=== PATIENT | male | born 1950 | race Caucasian/White ===

== ENCOUNTER 2020-11-13 14:24 | Inpatient (IN) | payer OTHER, MEDICARE, SELFPAY ==
[2020-11-13] VITALS (19 sets, daily range): BP systolic 117–154; BP diastolic 57–74; PULSE 83–110; RESP 22–40; TEMP 38.1; O2SAT 84–94; BMI 28.0
--- NOTE | 2020-11-13 14:30 | PC.NURSE ---
COVID + PT arrived via EMS, RA for 2 min and sats decreased to 84%. Placed on 6L, stats increased to 86-88%. RT called for heated high flow setup. Pt reports chest pain with cough. A/O, short of breath.
--- NOTE | 2020-11-13 14:37 | DI.RAD.S_ITS ---
PROCEDURE: XR CHEST 1V INDICATIONS: Covid + and shortness of breath TECHNIQUE: One view of the chest was acquired. COMPARISON: None. FINDINGS: Heart size and mediastinum unremarkable. Atherosclerotic vascular calcification noted in the aortic arch. There are patchy bilateral pulmonary infiltrates accentuated by low lung volumes. Pleural spaces are clear. Osseous structures normal. IMPRESSION: Patchy bilateral pulmonary infiltrates consistent with viral pneumonia. Low lung volumes accentuate pulmonary interstitium and heart size. Aortic atherosclerosis Approved by: Willy Liao M.D. on 11/13/2020 at 14:32
--- NOTE | 2020-11-13 14:43 | ED.GENADULT ---
HPI - General Adult General Chief complaint: Shortness of Breath/Dyspnea Stated complaint: SOB Time Seen by Provider: 11/13/20 14:34 Source: patient and EMS Mode of arrival: EMS History of Present Illness HPI narrative: 70-year-old male was brought in by EMS for shortness of breath. Patient states that approximately 10 days ago he started having symptoms to include headache and a cough. A couple days later he was tested as an outpatient and was positive for COVID-19. He is unvaccinated. No prior underlying lung issues. He states that over the past 10 days he has progressively worsened until today things seem to get much worse. He has been coughing. He does have a headache. Chest pain only associated with a cough. No abdominal pain. No nausea body. No rashes. No recent travel. No lower extremity swelling. No urinary symptoms. No change in bowel habits. Related Data Home Medications Medication Instructions Recorded Confirmed amlodipine 10 mg tablet 10 mg PO DAILY 11/13/20 11/13/20 gabapentin 300 mg capsule 300 mg PO BID 11/13/20 11/13/20 lisinopril 20 mg tablet 20 mg PO BID 11/13/20 11/13/20 metoprolol tartrate 25 mg tablet 25 mg PO BID 11/13/20 11/13/20 triamterene 37.5 1 tab PO DAILY 11/13/20 11/13/20 mg-hydrochlorothiazide 25 mg tablet Allergies Allergy/AdvReac Type Severity Reaction Status Date / Time Penicillins Allergy Unknown Verified 11/13/20 14:51 Sulfa (Sulfonamide Allergy Unknown Verified 11/13/20 14:51 Antibiotics) Review of Systems Constitutional Constitutional: Reports fever(s) and Reports headache(s) Eyes Eyes: Reports system reviewed and no additional complaints, except as documented ENT Ears, Nose, Mouth, and Throat: Reports headache(s) Cardiovascular Cardiovascular: Reports as per HPI Respiratory Respiratory: Reports as per HPI Gastrointestinal Gastrointestinal: Reports as per HPI Genitourinary Genitourinary: Reports system reviewed and no additional complaints, except as documented Musculoskeletal Musculoskeletal: Reports system reviewed and no additional complaints, except as documented Integumentary/Breasts Skin/Breast: Reports system reviewed and no additional complaints, except as documented Neurologic Neurologic: Reports headache(s) Endocrine Endocrine: Reports system reviewed and no additional complaints, except as documented Hematologic/Lymphatic On Anticoagulants: No Allergic/Immunologic Allergic/Immunologic: Reports system reviewed and no additional complaints, except as documented Patient History Medical History Hypertension Social History Smoking Status: Current every day smoker Exam Initial Vital Signs Initial Vital Signs: Vital Signs Pulse Rate 109 H 11/13/20 14:31 Blood Pressure 154/68 H 11/13/20 14:31 Pulse Oximetry 84 L 11/13/20 14:31 Const General: comfortable HENMT Head: normal to inspection and normocephalic Eyes General: appearance normal, both eyes and all related structures Chest Chest: normal inspection of the chest Resp Effort & Inspection: labored and tachypneic Auscultation: crackles and no wheezes Cardio Rate: regular rate Rhythm: regular rhythm GI Inspection: normal to inspection Skin General: no rashes or lesions noted Neuro General: patient alert, patient awake, patient oriented x3 and moves all extremities Extrem General: normal to inspection and capillary refill normal Psych Appearance: grossly normal and well kempt Scores GCS [place] coma scale eye opening: Spontaneous [place] coma scale verbal response: Orientated Barbara coma scale motor response: Obey commands Barbara coma scale total score: 15 Course Orders Ordered: ED Orders 11/13/20 14:33 EKG-12 Lead Stat 11/13/20 14:37 XR chest 1V Stat RT Consult Eval and Treat Now 11/13/20 14:45 C-Reactive Protein Quant Stat Complete Blood Count AUTO DIFF Stat Comprehensive Metabolic Panel Stat D Dimer Stat Ferritin Stat Lactate (Lactic Acid) Stat Lactate Dehydrogenase Stat Lipase Stat Procalcitonin Stat Troponin & CK Cardiac Panel Stat 11/13/20 15:02 Arterial Blood Gas Stat 11/13/20 15:40 Blood Culture Stat Discontinued Medications Dexamethasone (Dexamethasone 10 Mg/Ml Vial) 10 mg IV NOW ONE Stop: 11/13/20 14:43 Last Admin: 11/13/20 15:18 Dose: 10 mg Documented by: MILAGROS Sodium Chloride (Normal Saline 0.9%) 1,000 mls @ 125 mls/hr IV CONT CUATE Last Infusion: 11/13/20 16:00 Dose: 125 mls/hr Documented by: Infusion: 11/13/20 15:25 Dose: 0 mls/hr Documented by: Admin: 11/13/20 15:21 Dose: 125 mls/hr Documented by: MILAGROS Azithromycin 500 mg/ Dextrose 250 mls @ 250 mls/hr IV NOW ONE Stop: 11/13/20 14:43 Last Infusion: 11/13/20 17:18 Dose: 0 mls/hr Documented by: Admin: 11/13/20 15:18 Dose: 250 mls/hr Documented by: MILAGROS Remdesivir 200 mg/ Sodium (Chloride) 250 mls @ 250 mls/hr IV NOW ONE Stop: 11/13/20 14:43 Last Infusion: 11/13/20 17:18 Dose: 0 mls/hr Documented by: Admin: 11/13/20 15:20 Dose: 250 mls/hr Documented by: MILAGROS Vital Signs Vital signs: Vital Signs - 8 hr 11/13/20 14:31 11/13/20 14:54 11/13/20 15:00 Temperature 100.6 F H Pulse Rate 109 H 110 H 107 H Respiratory Rate 30 H 22 Blood Pressure 154/68 H 154/68 H Pulse Oximetry 84 L 84 L 92 Medical Decision Making Medical Records Medical records reviewed: Yes I reviewed the patient's medical records. Lab Data Lab results reviewed: Yes I reviewed the patient's lab results. Result diagrams: 11/13/20 14:45 11/13/20 14:45 Labs: Lab Results 11/13/20 11/13/20 11/13/20 Range/Units 14:45 14:45 14:45 WBC 9.0 (4.5-11.0) X10^3/uL RBC 4.72 (4.5-5.9) X10^6/uL Hgb 13.9 (13.5-17.5) g/dL Hct 40.5 L (41-53) % MCV 85.9 (80-100) fL MCH 29.5 (26-34) PG MCHC 34.4 (30-36) % RDW 13.5 (11.6-14.8) % Plt Count 147 L (150-400) X10^3/uL Neut % (Auto) 89.6 H (50-75) % Lymph % (Auto) 6.2 L (25-40) % [place] % (Auto) 3.9 (3-14) % Eos % (Auto) 0.0 L (2-4) % Baso % (Auto) 0.3 (0-2) % Neut # (Auto) 8100 H (3036-2363) /uL Lymph # (Auto) 600 L (9678-6644) /uL [place] # (Auto) 400 (0-900) /uL Eos # (Auto) 0 (0-450) /uL Baso # (Auto) 0 (0-100) /uL D-Dimer 435 H (<230) ng/mL Sodium (137-145) mmol/L Potassium (3.4-5.1) mmol/L Chloride (98-107) mmol/L Carbon Dioxide (22-32) mmol/L BUN (9-20) mg/dL Creatinine (0.66-1.25) mg/dL Estimated GFR (>60) mL/min BUN/Creatinine Ratio (6-22) Glucose (80-110) mg/dL Lactate (0.7-2.1) mmol/L Calcium (8.4-10.2) mg/dL Ferritin 518 H (18-464) ng/mL Total Bilirubin (0.2-1.3) mg/dL AST (17-59) IU/L ALT (<50) IU/L Alkaline Phosphatase (38-126) U/L Lactate Dehydrogenase 1600 H (313-618) U/L Total Creatine Kinase (55-170) U/L CK-MB (CK-2) (<2.37) ng/mL CK-MB (CK-2) Rel Index (1.5-5.0) % Troponin I (0.01-0.034) ng/mL C-Reactive Protein (<1.0) mg/dL Total Protein (6.3-8.2) g/dL Albumin (3.5-5.0) g/dL Globulin (1.7-4.1) g/dL Albumin/Globulin Ratio (1.0-2.8) Lipase (23-300) U/L Procalcitonin (<0.5) ng/mL 11/13/20 11/13/20 Range/Units 14:45 14:45 WBC (4.5-11.0) X10^3/uL RBC (4.5-5.9) X10^6/uL Hgb (13.5-17.5) g/dL Hct (41-53) % MCV (80-100) fL MCH (26-34) PG MCHC (30-36) % RDW (11.6-14.8) % Plt Count (150-400) X10^3/uL Neut % (Auto) (50-75) % Lymph % (Auto) (25-40) % [place] % (Auto) (3-14) % Eos % (Auto) (2-4) % Baso % (Auto) (0-2) % Neut # (Auto) (2290-1072) /uL Lymph # (Auto) (6048-5852) /uL [place] # (Auto) (0-900) /uL Eos # (Auto) (0-450) /uL Baso # (Auto) (0-100) /uL D-Dimer (<230) ng/mL Sodium 137 (137-145) mmol/L Potassium 3.8 (3.4-5.1) mmol/L Chloride 109 H (98-107) mmol/L Carbon Dioxide 19 L (22-32) mmol/L BUN 39 H (9-20) mg/dL Creatinine 1.63 H (0.66-1.25) mg/dL Estimated GFR 42.2 L (>60) mL/min BUN/Creatinine Ratio 23.9 H (6-22) Glucose 123 H (80-110) mg/dL Lactate 1.5 (0.7-2.1) mmol/L Calcium 9.0 (8.4-10.2) mg/dL Ferritin (18-464) ng/mL Total Bilirubin 0.5 (0.2-1.3) mg/dL AST 88 H (17-59) IU/L ALT 50 H (<50) IU/L Alkaline Phosphatase 86 (38-126) U/L Lactate Dehydrogenase (313-618) U/L Total Creatine Kinase 555 H (55-170) U/L CK-MB (CK-2) 2.16 (<2.37) ng/mL CK-MB (CK-2) Rel Index 0.4 L (1.5-5.0) % Troponin I 0.013 (0.01-0.034) ng/mL C-Reactive Protein 8.3 H (<1.0) mg/dL Total Protein 7.4 (6.3-8.2) g/dL Albumin 3.9 (3.5-5.0) g/dL Globulin 3.5 (1.7-4.1) g/dL Albumin/Globulin Ratio 1.1 (1.0-2.8) Lipase 288 (23-300) U/L Procalcitonin 0.73 H (<0.5) ng/mL Imaging Data Chest x-ray: Radiologist's Impression: Patchy bilateral infiltrates consistent with viral pneumonia ECG Data Attestation: I personally reviewed and interpreted this ECG as follows: Interpretation: Sinus tachycardia Ventricular rate 105 Normal axis Right bundle branch block QRS 152 milliseconds QTC [address] T wave changes MDM Narrative Medical decision making narrative: Patient's symptoms/oxygen saturations did improve with heated high-flow. He has known positive for COVID. Patient is hypoxic on room air. Chest x-ray consistent with pneumonia. Medication treatment started here in the emergency department. Patient does require admission to the hospital. Discussed the case with Dr. Villalpando who will admit for further evaluation and treatment. Patient states that if he does require intubation he would be okay with this. I did discuss the need for admission with the patient. He expressed understanding and agreement. Discharge Plan Departure Patient Disposition: Admitted As Inpatient Clinical Impression: Pneumonia due to 2019 novel coronavirus, Hypoxia Admit Date/Time: 11/13/20 15:00 Admit Provider: Vikash Villalpando
[2020-11-13 14:57] LABS: Add Manual Diff / Slide Review NO; Basophils Absolute Auto 0 /uL (0-100); Basophils Percent Auto 0.3 % (0-2); Eosinophils Absolute Auto 0 /uL (0-450); Hematocrit 40.5 % (41-53); Hemoglobin 13.9 g/dL (13.5-17.5); Lymphocytes Absolute Auto 600 /uL (1100-4500); Lymphocytes Percent Auto 6.2 % (25-40); Mean Corpuscular HGB Conc 34.4 % (30-36); Mean Corpuscular Hemoglobin 29.5 PG (26-34); Mean Corpuscular Volume 85.9 fL (80-100); Monocytes Absolute Auto 400 /uL (0-900); Monocytes Percent Auto 3.9 % (3-14); Neutrophils Absolute Auto 8100 /uL (1500-7000); Neutrophils Percent Auto 89.6 % (50-75); Platelet Count 147 X10^3/uL (150-400); Red Blood Cell Count 4.72 X10^6/uL (4.5-5.9); Red Cell Distribution Width 13.5 % (11.6-14.8)
[2020-11-13 15:07] LABS: D Dimer 435 ng/mL (<230)
[2020-11-13 15:10] LABS: Lactate Dehydrogenase 1600 U/L (313-618)
[2020-11-13 15:11] LABS: Lactate (Lactic Acid) 1.5 mmol/L (0.7-2.1)
[2020-11-13 15:13] LABS: Alanine Aminotransferase 50 IU/L (<50); Albumin 3.9 g/dL (3.5-5.0); Albumin Globulin Ratio 1.1 (1.0-2.8); Alkaline Phosphatase 86 U/L (38-126); Aspartate Aminotransferase 88 IU/L (17-59); BUN Creatinine Ratio 23.9 (6-22); Bilirubin Total 0.5 mg/dL (0.2-1.3); Blood Urea Nitrogen 39 mg/dL (9-20); C-Reactive Protein Quant 8.3 mg/dL (<1.0); Carbon Dioxide 19 mmol/L (22-32); Chloride 109 mmol/L (98-107); Creatine Kinase 555 U/L (55-170); Estimated Glomerular Filt Rate 42.2 mL/min (>60); Globulin 3.5 g/dL (1.7-4.1); Glucose 123 mg/dL (80-110); Lipase 288 U/L (23-300); Potassium 3.8 mmol/L (3.4-5.1); Sodium 137 mmol/L (137-145); Total Protein 7.4 g/dL (6.3-8.2)
[2020-11-13] MEDS: DEXAMETHASONE 10 MG/ML VIAL IV (15:18)
[2020-11-13] MEDS: AZITHROMYCIN 500 MG in DEXTROSE 5% IN WATER 250 ML IV (15:18)
[2020-11-13] MEDS: REMDESIVIR 200 MG in SODIUM CHLORIDE 0.9% 210 ML 250 ML IV (15:20)
[2020-11-13 15:21] LABS: Troponin I 0.013 ng/mL (0.01-0.034)
[2020-11-13] MEDS: SODIUM CHLORIDE 0.9% 1,000 ML 125 ML IV (15:21)
[2020-11-13 15:25] LABS: CKMB % Relative Index 0.4 % (1.5-5.0); Creatine Kinase MB 2.16 ng/mL (<2.37); HEMOLYSIS 26 (0-50)
[2020-11-13 15:26] LABS: Procalcitonin 0.73 ng/mL (<0.5)
[2020-11-13 16:23] LABS: PCO2 ABG 24.6 mmHg (35-45); PO2 ABG 64 mmHg (80-100); pH ABG 7.45 (7.35-7.45)
[2020-11-13 16:24] LABS: Fractionated Inspired Oxygen 55; HCO3 ABG 17 mmol/L (22-26); Oxygen Saturation ABG 94 % (95-100); TCO2 ABG 18 mmol/L (21-31)
[2020-11-13 16:27] LABS: Ferritin 518 ng/mL (18-464)
[2020-11-13 20:09] LABS: Magnesium 2.6 mg/dL (1.6-2.3)
[2020-11-13] MEDS: HEPARIN 5,000 UNIT/ML VIAL 5000 UNIT SUBCUT (22:26)
[2020-11-14] VITALS (32 sets, daily range): BP systolic 111–144; BP diastolic 60–85; PULSE 76–133; RESP 16–42; TEMP 36.6–36.9; O2SAT 88–96; BMI 28.0
[2020-11-14] MEDS: LORazepam 0.5 MG TABLET PO ×2 (00:27→21:05)
--- NOTE | 2020-11-14 00:47 | PC.NURSE ---
Addendum entered by Che Giraldo R.N. 11/14/20 03:55: 0325- Patient in AFib/RVR. JESIKA Arellano notified order rec. Vitals are stable. Will monitor. Original Note: 0045- Patient medicated per order for anxiety. Patient assisted to a side lying position. Saturations 92%. Will monitor.
--- NOTE | 2020-11-14 00:56 | PM.HP.1 ---
History of Present Illness History of Present Illness Date Patient Seen: 11/13/20 Time Patient Seen: 19:21 Chief complaint: SOB Narrative: Patient is a 70-year-old male Julián Shaffer who presented to the ED for shortness of breath. Patient approximately 10 days ago started having symptoms to include headache, cough, and tested positive for COVID-19. He is unvaccinated. Patient denies any respiratory history, or illnesses he does note that he smoked for approximately 35 years and quit 1 week ago. Patient also reports that he has a history of significant alcohol abuse x 30 years, quit 5 months ago, has not had a drink since. Patient denied any concerns regarding with drawl from alcohol or tobacco. Patient's symptoms of headache, cough, SOB at rest, chest pain with coughing have been progressively worsened over the past 10 days. Patient denies currently abdominal pain, nausea, vomiting, fever, body aches, chills, rashes, exposure to positive COVID, unusual or new extremity swelling, difficulty with urination, hematuria, melena, or recent illnesses. Patient does report that he had 1 episode of diarrhea earlier today, but has had no further issues. Patient is feeling slightly anxious at the time of admit. He reports that he has not received pneumonia vaccine, shingles vaccine, or 2019 flu vaccine but does normally take the flu vaccine. Patient is extremely short of breath with significant work of breathing with significant shaking during admit interview, patient is unable to complete sentences, only able verbalize 1-2 words at a time. Patient denies heart failure history, COPD, or any further respiratory or cardiac health isues. He reports his last cardiac workup with an echo/stress test fall 2019 at [facility] in [facility] was WNL I have a very healthy heart. Patient only reports a history of high blood pressure, diabetes type 2 controlled by diet, and degenerative disc disease. Patient's vitals upon admit slightly afebrile temp 100.6?, BP 140/63, HR 83, slightly tachypneic RR 24, O2 saturation 90% on 50 L high-flow. Patient's CBC was predominantly within normal limits with the exception of platelets 147, ferritin 518, and neutrophils# 8.100. Patient's chemistries demonstrated chloride 109, BUN 39, HC03 19, with a creatinine of 1.63, GFR 42.2, glucose 123, patient's lactate Dehy 1600, lactate negative, control creatinine kinase 555, troponin slight bump at 0.013, CRP 8.3, procalcitonin 0.73, dimer of 435 (age adjusted 690, VTE unlikely). ABGs pH normal at 7.45, pCO2 alkalotic 24.6, PO2 64, HC03 acidotic 17, TCO2 18, O2 saturation 94%, base excess-7.0, FiO2 55. EKG showed sinus tachycardia rate 105, right bundle-branch block without ST or T-wave changes. Patient's chest x-ray demonstrated patchy bilateral infiltrates consistent with viral pneumonia. Patient admitted with acute respiratory failure with hypoxia due to COVID pneumonia. Patient History Medical History (Updated 11/14/20 @ 02:13 by CHLOE Kruse) Alcohol use disorder, moderate, in early remission History of pineal cyst Hypertension Tobacco abuse, in remission Surgical History (Updated 11/14/20 @ 02:13 by CHLOE Kruse) History of extraction of renal calculus Family & Social History Family History Mother Hypertension CKD (chronic kidney disease) Father Cancer Social History: household members lives alone but has a significant other, in the vicinity. 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 Prior Living Arrangements House Safety & Behavioral: Feels Safe in Current Yes Environment Been Physically Hurt or No Threatened By a Person Suicidal Ideation Description None Suicide Plan Description No Plan Tobacco & Substance use: Smoking Status patient is a smoker times 35 years, who notes he quit 1 week ago November 04, 2020 Substance Use Type does not use Alcohol use patient states that he abused alcohol for approximately 30 years and quit 5 months ago. Meds Home Medications and Allergies Home Medications Medication Instructions Recorded Confirmed Type amlodipine 10 mg tablet 10 mg PO DAILY 11/13/20 11/13/20 History gabapentin 300 mg capsule 300 mg PO BID 11/13/20 11/13/20 History lisinopril 20 mg tablet 20 mg PO BID 11/13/20 11/13/20 History metoprolol tartrate 25 mg tablet 25 mg PO BID 11/13/20 11/13/20 History triamterene 37.5 1 tab PO DAILY 11/13/20 11/13/20 History mg-hydrochlorothiazide 25 mg tablet Allergies Allergy/AdvReac Type Severity Reaction Status Date / Time Penicillins Allergy Unknown Verified 11/13/20 14:51 Sulfa (Sulfonamide Allergy Unknown Verified 11/13/20 14:51 Antibiotics) Review of Systems Review of Systems Narrative: All 12 point systems reviewed with the patient and are negative except otherwise documented. Exam Vital Signs (past 8 hours): - 11/13/20 17:00 11/13/20 17:30 11/13/20 17:48 Temperature Pulse Rate 89 91 H 89 Respiratory Rate 26 H 34 H 24 Blood Pressure 117/74 120/57 L 120/57 L Pulse Oximetry 92 90 L 92 11/13/20 18:00 11/13/20 18:30 11/13/20 19:02 Temperature Pulse Rate 86 90 87 Respiratory Rate 31 H 32 H 40 H Blood Pressure 120/59 L 132/59 L 140/63 Pulse Oximetry 90 L 92 94 11/13/20 19:13 11/13/20 20:45 11/13/20 22:00 Temperature Pulse Rate 83 85 88 Respiratory Rate 24 36 H 30 H Blood Pressure 140/63 Pulse Oximetry 90 L 92 92 11/13/20 23:30 11/13/20 23:51 11/14/20 00:36 Temperature 98 F Pulse Rate 89 82 Respiratory Rate 29 H 24 Blood Pressure 128/63 128/63 Pulse Oximetry 92 93 94 Fraction of Inspired Oxygen 62 Oxygen Delivery Method Heated High Flow Oxygen Flow Rate 50 Narrative Exam Narrative: General: Patient is a pleasant well-developed, male, appears older than stated age, moderately ill appearing, with moderate work of breathing, all over body shaking, likely secondary to steroids, in no acute distress at this time. HEENT: Normocephalic, atraumatic, extraocular muscles intact, oral pharynx is clear and mucous membranes are moist. Neck is supple and symmetric, trachea is midline, no adenopathy, no thyroid enlargement, nontender, no masses palpated. Negative for JVD Chest: Negative for retractions, positive for occasional nasal flaring, increased work of breathing, tachypneic and labored Lungs: Auscultation of all lung arevalo decreased occasional crackles in bilateral bases, and occasional expiratory wheezing in the right upper lobe, Cardio: regular rate and rhythm without murmur, rubs, or gallops, no carotid bruit, no cardiac pulsations present. Abdomen: Soft nontender, negative for organomegaly, or masses. Bowel sounds are hyperactive present in all 4 quadrants without guarding or rebound, no CVA tenderness. Musculoskeletal: Muscle strength and tone are equal within normal limits, no deformity, crepitus, effusions, cyanosis, clubbing or edema present. Full range of motion intact radial and pedal pulses are normal. Skin: Cool to touch and intact without rashes, ulcerations or petechiae, face has a e[place] appearance. Neuro: Alert and orientated x3, strength is +5/5 in all extremities, sensation to touch intact, no gross deficits noted of cranial nerves. Psych: Patient has a moderate-kept appearance, appropriate affect, mental status attitude thought context and judgment are appropriate for age. Objective Labs Result Diagrams: 11/13/20 14:45 11/13/20 14:45 Labs: Laboratory Results - last 24 hr 11/13/20 11/13/20 11/13/20 14:45 14:45 14:45 WBC 9.0 RBC 4.72 Hgb 13.9 Hct 40.5 L MCV 85.9 MCH 29.5 MCHC 34.4 RDW 13.5 Plt Count 147 L Neut % (Auto) 89.6 H Lymph % (Auto) 6.2 L [place] % (Auto) 3.9 Eos % (Auto) 0.0 L Baso % (Auto) 0.3 Neut # (Auto) 8100 H Lymph # (Auto) 600 L [place] # (Auto) 400 Eos # (Auto) 0 Baso # (Auto) 0 D-Dimer 435 H ABG pH ABG pCO2 ABG pO2 ABG HCO3 ABG Total CO2 ABG O2 Saturation ABG Base Excess FiO2 Sodium Potassium Chloride Carbon Dioxide BUN Creatinine Estimated GFR BUN/Creatinine Ratio Glucose Lactate Calcium Magnesium Ferritin 518 H Total Bilirubin AST ALT Alkaline Phosphatase Lactate Dehydrogenase 1600 H Total Creatine Kinase CK-MB (CK-2) CK-MB (CK-2) Rel Index Troponin I C-Reactive Protein Total Protein Albumin Globulin Albumin/Globulin Ratio Lipase Procalcitonin 11/13/20 11/13/20 11/13/20 14:45 14:45 14:54 WBC RBC Hgb Hct MCV MCH MCHC RDW Plt Count Neut % (Auto) Lymph % (Auto) [place] % (Auto) Eos % (Auto) Baso % (Auto) Neut # (Auto) Lymph # (Auto) [place] # (Auto) Eos # (Auto) Baso # (Auto) D-Dimer ABG pH ABG pCO2 ABG pO2 ABG HCO3 ABG Total CO2 ABG O2 Saturation ABG Base Excess FiO2 Sodium 137 Potassium 3.8 Chloride 109 H Carbon Dioxide 19 L BUN 39 H Creatinine 1.63 H Estimated GFR 42.2 L BUN/Creatinine Ratio 23.9 H Glucose 123 H Lactate 1.5 Calcium 9.0 Magnesium 2.6 H Ferritin Total Bilirubin 0.5 AST 88 H ALT 50 H Alkaline Phosphatase 86 Lactate Dehydrogenase Total Creatine Kinase 555 H CK-MB (CK-2) 2.16 CK-MB (CK-2) Rel Index 0.4 L Troponin I 0.013 C-Reactive Protein 8.3 H Total Protein 7.4 Albumin 3.9 Globulin 3.5 Albumin/Globulin Ratio 1.1 Lipase 288 Procalcitonin 0.73 H 11/13/20 15:02 WBC RBC Hgb Hct MCV MCH MCHC RDW Plt Count Neut % (Auto) Lymph % (Auto) [place] % (Auto) Eos % (Auto) Baso % (Auto) Neut # (Auto) Lymph # (Auto) [place] # (Auto) Eos # (Auto) Baso # (Auto) D-Dimer ABG pH 7.45 ABG pCO2 24.6 L* ABG pO2 64 L ABG HCO3 17 L ABG Total CO2 18 L ABG O2 Saturation 94 L ABG Base Excess -7.0 L FiO2 55 Sodium Potassium Chloride Carbon Dioxide BUN Creatinine Estimated GFR BUN/Creatinine Ratio Glucose Lactate Calcium Magnesium Ferritin Total Bilirubin AST ALT Alkaline Phosphatase Lactate Dehydrogenase Total Creatine Kinase CK-MB (CK-2) CK-MB (CK-2) Rel Index Troponin I C-Reactive Protein Total Protein Albumin Globulin Albumin/Globulin Ratio Lipase Procalcitonin Assessment & Plan Assessment & Plan narrative: Patient is a 70-year-old male with a reported history essential hypertension and tobacco and alcohol abuse +30 years, in early remission. Patient is unvaccinated and admitted with acute respiratory failure with hypoxia as a result of COVID pneumonia. 1. Acute respiratory failure with hypoxia resulting from COVID pneumonia, in the setting of chronic tobacco abuse, acute, but suspect acute on chronic, present on admission -I suspect patient has medical history of COPD and/or heart failure, and that this is more likely an acute on chronic exacerbation in the setting of acute respiratory failure with hypoxia resulting from COVID pneumonia. -temp 100.6?, RR 24, O2 saturation 90% on 50 L high-flow, platelets 147, ferritin 518, and neutrophils# 8.100, chloride 109, BUN 39, HC03 19, FRUIT BUYER 1.63, GFR 42.2, glucose 123, patient's lactate Dehy 1600, lactate negative, Tcreatinine kinase 555, troponin slight bump at 0.013, CRP 8.3, procalcitonin 0.73, dimer of 435 (age adjusted 690, VTE unlikely). ABGs pH normal at 7.45, pCO2 alkalotic 24.6, PO2 64, HC03 acidotic 17, TCO2 18, O2 saturation 94%, base excess-7.0, FiO2 55. CXR: patchy bilateral infiltrates consistent with viral pneumonia. SOFA score 4, -avoiding nebulizer aerosol treatments, if signs and symptoms are worsening order chest x-ray and echo -monitor patient for acute NJ, ischemic stroke, PE, DVT, venous thrombosis, hyperglycemia an increased risk of bacterial infections, fungal and strongyloides -blood cultures pending, 6 mg dexamethasone, albuterol inhaler 2 puffs, acetaminophen 250 mg, heparin 5000units BID, remdesivir 200 mg, encourage proning as often as tolerated. -patient to be monitored on tele medicine, vital signs q.4 hours, intake and output monitored Q shift, weight measure daily, diet: Regular -Supplemental NC -maintain SaO2 88-92%, check peak flow expiratory flow q.day 1-2 days. -ABG/Resp Consult-O2 saturation drops below 88%, Max 6L/Min NC -labs ordered PT, troponin, D-dimer, VBG, lactate repeat in a.m., CBC and CMP daily. 2. Essential hypertension, in the setting of chronic tobacco and alcohol abuse times 30-35 years, acute on chronic, present on admission -continue patient's triamterene-HCTZ, amlodipine, lisinopril, and metoprolol -patient placed on CIWA protocol, for ongoing monitoring -patient offered nicotine patch, refused at this time 3. Degenerative disc disease the lumbar spine, with resulting chronic back pain, chronic, present on admission -continue patient's gabapentin Code status: Full code Surrogate decision maker: Gi Richardson-partner DVT/VTE prophylaxis: Heparin 5000 units b.i.d. and SCDs COVID PCR: Positive COVID vaccination: Unvaccinated Estimated length of stay: Greater than 2 midnights Scores GCS [place] coma scale eye opening: Spontaneous Barbara coma scale verbal response: Orientated [place] coma scale motor response: Obey commands [place] coma scale total score: 15 SOFA PaO2/FIO2: < 300 mmHg Platelets: < 150 Bilirubin: < 1.2 mg/dL Hypotension: MAP >= 70 mmHg Barbara Coma Scale: 15 Renal: Creatinine 1.2-1.9 mg/dL SOFA Score: 4 Wells' Criteria for PE Clinical signs and symptoms of DVT: No PE is #1 Dx or equally likely: No Heart rate > 100: No Immobilization at least 3 days or surg in previous 4 weeks: Yes History of PE or DVT: No Hemoptysis: No Malignancy w/Treatment within 6 months or palliative: No Wells' PE Score total: 1.5 Quality VTE Deep Vein Thrombosis/Pulmonary Embolism Present on Admission: No MIPS - Admit I confirm the patient?s Advance Care Plan is present, Code status is documented, Surrogate decision maker is in patient?s record [If Yes, STOP here]: Yes
[2020-11-14] MEDS: METOPROLOL IR 25 MG TABLET PO ×2 (03:37→20:19)
[2020-11-14 05:33] LABS: HCO3 VBG 20 mmol/L (23-28); PCO2 VBG 31.1 mmHg (45-50); PO2 VBG 55 mmHg (35-45); Total CO2 VBG 21 mmol/L (24-29); pH VBG 7.42 (7.33-7.43)
[2020-11-14 05:34] LABS: Oxygen Saturation VBG 89 % (70-75)
[2020-11-14 06:29] LABS: Add Manual Diff / Slide Review NO; Basophils Absolute Auto 0 /uL (0-100); Basophils Percent Auto 0.1 % (0-2); Eosinophils Absolute Auto 0 /uL (0-450); Hematocrit 37.9 % (41-53); Hemoglobin 12.7 g/dL (13.5-17.5); Lymphocytes Absolute Auto 500 /uL (1100-4500); Lymphocytes Percent Auto 6.8 % (25-40); Mean Corpuscular HGB Conc 33.6 % (30-36); Mean Corpuscular Hemoglobin 29.1 PG (26-34); Mean Corpuscular Volume 86.5 fL (80-100); Monocytes Absolute Auto 400 /uL (0-900); Neutrophils Absolute Auto 6300 /uL (1500-7000); Neutrophils Percent Auto 88.1 % (50-75); Platelet Count 163 X10^3/uL (150-400); Red Blood Cell Count 4.38 X10^6/uL (4.5-5.9); Red Cell Distribution Width 13.4 % (11.6-14.8); White Blood Cell Count 7.1 X10^3/uL (4.5-11.0)
[2020-11-14 06:32] LABS: INR 1.1 (0.9-1.3); Prothrombin Time 11.9 SECONDS (10.1-12.7)
[2020-11-14 06:35] LABS: D Dimer 505 ng/mL (<230)
[2020-11-14 06:39] LABS: Alanine Aminotransferase 54 IU/L (<50); Albumin 3.5 g/dL (3.5-5.0); Albumin Globulin Ratio 1.1 (1.0-2.8); Alkaline Phosphatase 73 U/L (38-126); Aspartate Aminotransferase 78 IU/L (17-59); BUN Creatinine Ratio 28.9 (6-22); Bilirubin Total 0.3 mg/dL (0.2-1.3); Blood Urea Nitrogen 39 mg/dL (9-20); Calcium 8.8 mg/dL (8.4-10.2); Carbon Dioxide 18 mmol/L (22-32); Chloride 111 mmol/L (98-107); Estimated Glomerular Filt Rate 52.4 mL/min (>60); Globulin 3.1 g/dL (1.7-4.1); Glucose 122 mg/dL (80-110); HEMOLYSIS < 15 (0-50); Sodium 137 mmol/L (137-145); Total Protein 6.6 g/dL (6.3-8.2)
[2020-11-14 06:43] LABS: Creatine Kinase 412 U/L (55-170)
[2020-11-14 06:50] LABS: Troponin I 0.019 ng/mL (0.01-0.034)
[2020-11-14 06:58] LABS: CKMB % Relative Index 0.8 % (1.5-5.0); Creatine Kinase MB 3.22 ng/mL (<2.37)
[2020-11-14] MEDS: lisinopriL 20 MG TABLET PO ×2 (10:24→20:18)
[2020-11-14] MEDS: REMDESIVIR 100 MG in SODIUM CHLORIDE 0.9% 230 ML 250 ML IV (10:24)
[2020-11-14] MEDS: dexAMETHasone 1 MG TABLET 6 MG PO (10:25)
[2020-11-14] MEDS: GABAPENTIN 300 MG CAPSULE PO ×2 (10:25→20:18)
[2020-11-14] MEDS: TRIAMTERENE/HCTZ 37.5/25 CAPSULE 1 CAP PO (10:25)
[2020-11-14] MEDS: AMLODIPINE 5 MG TABLET 10 MG PO (10:25)
[2020-11-14] MEDS: HEPARIN 5,000 UNIT/ML VIAL 5000 UNIT SUBCUT ×2 (10:25→20:18)
[2020-11-14] MEDS: METOPROLOL TARTRATE 5 MG/5 ML INJ IV ×2 (10:28→15:59)
--- NOTE | 2020-11-14 12:05 | CM.DANOTE ---
Patient is a 70 yo male who was admitted on 11/13/20 for SOB. Pt has [facility] for insurance and his PCP is Jannet Townsend. EMR was reviewed. Per MD, pt with hx of 30 yrs ETOH and sober past 5 months and long hx of smoking but quit a few days ago. Pt unvaccinated and admitted with COVID+ pneumonia. Per RN, pt currently on heated high flow oxygen but able to communicate and room phone near his bed. SW called pt on room phone due to COVID+ precautions and explained role and pt confirms that he lives at home alone in [place] but has local supportive Sig Other Gi. Pt is active and independent at baseline and drives and continues to work for [employer] right now and denies any hx of HH or SNF. Pt does not use equipment to ambulate at baseline and confirms that he is quite below baseline right now and does not have oxygen for home use at baseline. Pt states he has not completed any DPOA pwk either but is aware of the purpose. Plan: SW to follow closely to determine if pt will be safe for d/c home alone when medically stable and any further identified needs. PT eval may be needed when oxygen levels more stable pending his progress and strength. 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 No Advance Directives on File No History Provided By Patient,Medical Record Has Patient been admitted in last 30 No days? Prior Living Arrangements House Household Members none Comment Has local sig other who lives in her own house Type of transporation used prior to Drives own vehicle admit Independent with ADL's Yes Is patient alert and oriented? Yes Caregiver for Another No Comment Follow closely for needs Barriers to Discharge No Discharge Plan Home Transportation Arrangement likely sig other can transport home at d/c Additional Comment Pending pt progress and needs closer to d/c Review Status In Process Please Provide Date Initial DC 11/14/20 Assessment Was Performed Next Review Type Continued Stay Review
--- NOTE | 2020-11-14 13:32 | PM.PN.1 ---
Subjective Subjective Interval history: 70 y/o male with hypertension, atrial fibrillation admitted to the hospital with Acute Respiratory Failure secondary to Covid-19 pneumonia. Patient continues to require high flow oxygen at 60% to keep his saturation greater than 89-90%. His appetite has improved and he feels a little bit better. Exam Vital Signs (past 8 hours): - 11/14/20 09:51 11/14/20 10:07 11/14/20 12:00 Temperature 98.3 F 98 F Pulse Rate 102 H 117 H 133 H Respiratory Rate 20 22 24 Blood Pressure 144/85 H 144/85 H 135/64 Pulse Oximetry 90 L 92 90 L 11/14/20 12:59 Temperature Pulse Rate 121 H Respiratory Rate 24 Blood Pressure 135/64 Pulse Oximetry 89 L Fraction of Inspired Oxygen 0.60 Oxygen Delivery Method Heated High Flow Oxygen Flow Rate 50 Narrative Exam Narrative: Ill appearing elderly male lying in bed Resp Other: Lungs: decreased breath sounds bilaterally Cardio Other: RRR nl Sl S2 GI Other: Abd: soft/ non tender/ non distended Extrem Other: no edema Objective Labs Result Diagrams: 11/14/20 05:23 11/14/20 05:23 Labs: Laboratory Results - last 24 hr 11/13/20 11/13/20 11/13/20 14:45 14:45 14:45 WBC 9.0 RBC 4.72 Hgb 13.9 Hct 40.5 L MCV 85.9 MCH 29.5 MCHC 34.4 RDW 13.5 Plt Count 147 L Neut % (Auto) 89.6 H Lymph % (Auto) 6.2 L [place] % (Auto) 3.9 Eos % (Auto) 0.0 L Baso % (Auto) 0.3 Neut # (Auto) 8100 H Lymph # (Auto) 600 L [place] # (Auto) 400 Eos # (Auto) 0 Baso # (Auto) 0 PT INR D-Dimer 435 H ABG pH ABG pCO2 ABG pO2 ABG HCO3 ABG Total CO2 ABG O2 Saturation ABG Base Excess VBG pH VBG pCO2 VBG pO2 VBG HCO3 VBG Total CO2 VBG O2 Saturation VBG Base Excess FiO2 Sodium Potassium Chloride Carbon Dioxide BUN Creatinine Estimated GFR BUN/Creatinine Ratio Glucose Lactate Calcium Magnesium Ferritin 518 H Total Bilirubin AST ALT Alkaline Phosphatase Lactate Dehydrogenase 1600 H Total Creatine Kinase CK-MB (CK-2) CK-MB (CK-2) Rel Index Troponin I C-Reactive Protein Total Protein Albumin Globulin Albumin/Globulin Ratio Lipase Procalcitonin Nasal Screen MRSA (PCR) 11/13/20 11/13/20 11/13/20 14:45 14:45 14:54 WBC RBC Hgb Hct MCV MCH MCHC RDW Plt Count Neut % (Auto) Lymph % (Auto) [place] % (Auto) Eos % (Auto) Baso % (Auto) Neut # (Auto) Lymph # (Auto) [place] # (Auto) Eos # (Auto) Baso # (Auto) PT INR D-Dimer ABG pH ABG pCO2 ABG pO2 ABG HCO3 ABG Total CO2 ABG O2 Saturation ABG Base Excess VBG pH VBG pCO2 VBG pO2 VBG HCO3 VBG Total CO2 VBG O2 Saturation VBG Base Excess FiO2 Sodium 137 Potassium 3.8 Chloride 109 H Carbon Dioxide 19 L BUN 39 H Creatinine 1.63 H Estimated GFR 42.2 L BUN/Creatinine Ratio 23.9 H Glucose 123 H Lactate 1.5 Calcium 9.0 Magnesium 2.6 H Ferritin Total Bilirubin 0.5 AST 88 H ALT 50 H Alkaline Phosphatase 86 Lactate Dehydrogenase Total Creatine Kinase 555 H CK-MB (CK-2) 2.16 CK-MB (CK-2) Rel Index 0.4 L Troponin I 0.013 C-Reactive Protein 8.3 H Total Protein 7.4 Albumin 3.9 Globulin 3.5 Albumin/Globulin Ratio 1.1 Lipase 288 Procalcitonin 0.73 H Nasal Screen MRSA (PCR) 11/13/20 11/14/20 11/14/20 15:02 05:23 05:23 WBC 7.1 RBC 4.38 L Hgb 12.7 L Hct 37.9 L MCV 86.5 MCH 29.1 MCHC 33.6 RDW 13.4 Plt Count 163 Neut % (Auto) 88.1 H Lymph % (Auto) 6.8 L [place] % (Auto) 5.0 Eos % (Auto) 0.0 L Baso % (Auto) 0.1 Neut # (Auto) 6300 Lymph # (Auto) 500 L [place] # (Auto) 400 Eos # (Auto) 0 Baso # (Auto) 0 PT 11.9 INR 1.1 D-Dimer ABG pH 7.45 ABG pCO2 24.6 L* ABG pO2 64 L ABG HCO3 17 L ABG Total CO2 18 L ABG O2 Saturation 94 L ABG Base Excess -7.0 L VBG pH VBG pCO2 VBG pO2 VBG HCO3 VBG Total CO2 VBG O2 Saturation VBG Base Excess FiO2 55 Sodium Potassium Chloride Carbon Dioxide BUN Creatinine Estimated GFR BUN/Creatinine Ratio Glucose Lactate Calcium Magnesium Ferritin Total Bilirubin AST ALT Alkaline Phosphatase Lactate Dehydrogenase Total Creatine Kinase CK-MB (CK-2) CK-MB (CK-2) Rel Index Troponin I C-Reactive Protein Total Protein Albumin Globulin Albumin/Globulin Ratio Lipase Procalcitonin Nasal Screen MRSA (PCR) 11/14/20 11/14/20 11/14/20 05:23 05:23 05:23 WBC RBC Hgb Hct MCV MCH MCHC RDW Plt Count Neut % (Auto) Lymph % (Auto) [place] % (Auto) Eos % (Auto) Baso % (Auto) Neut # (Auto) Lymph # (Auto) [place] # (Auto) Eos # (Auto) Baso # (Auto) PT INR D-Dimer 505 H ABG pH ABG pCO2 ABG pO2 ABG HCO3 ABG Total CO2 ABG O2 Saturation ABG Base Excess VBG pH VBG pCO2 VBG pO2 VBG HCO3 VBG Total CO2 VBG O2 Saturation VBG Base Excess FiO2 Sodium 137 Potassium 4.0 Chloride 111 H Carbon Dioxide 18 L BUN 39 H Creatinine 1.35 H Estimated GFR 52.4 L BUN/Creatinine Ratio 28.9 H Glucose 122 H Lactate Calcium 8.8 Magnesium Ferritin Total Bilirubin 0.3 AST 78 H ALT 54 H Alkaline Phosphatase 73 Lactate Dehydrogenase Total Creatine Kinase 412 H CK-MB (CK-2) 3.22 H D CK-MB (CK-2) Rel Index 0.8 L Troponin I 0.019 C-Reactive Protein Total Protein 6.6 Albumin 3.5 Globulin 3.1 Albumin/Globulin Ratio 1.1 Lipase Procalcitonin Nasal Screen MRSA (PCR) 11/14/20 11/14/20 05:25 10:35 WBC RBC Hgb Hct MCV MCH MCHC RDW Plt Count Neut % (Auto) Lymph % (Auto) [place] % (Auto) Eos % (Auto) Baso % (Auto) Neut # (Auto) Lymph # (Auto) [place] # (Auto) Eos # (Auto) Baso # (Auto) PT INR D-Dimer ABG pH ABG pCO2 ABG pO2 ABG HCO3 ABG Total CO2 ABG O2 Saturation ABG Base Excess VBG pH 7.42 VBG pCO2 31.1 L VBG pO2 55 H VBG HCO3 20 L VBG Total CO2 21 L VBG O2 Saturation 89 H VBG Base Excess -5.0 L FiO2 Sodium Potassium Chloride Carbon Dioxide BUN Creatinine Estimated GFR BUN/Creatinine Ratio Glucose Lactate Calcium Magnesium Ferritin Total Bilirubin AST ALT Alkaline Phosphatase Lactate Dehydrogenase Total Creatine Kinase CK-MB (CK-2) CK-MB (CK-2) Rel Index Troponin I C-Reactive Protein Total Protein Albumin Globulin Albumin/Globulin Ratio Lipase Procalcitonin Nasal Screen MRSA (PCR) Negative for mrsa [facility] Medical History (Updated 11/14/20 @ 02:13 by EM Krsue-PHIL) Alcohol use disorder, moderate, in early remission History of pineal cyst Hypertension Tobacco abuse, in remission Surgical History (Updated 11/14/20 @ 02:13 by CHLOE Kruse) History of extraction of renal calculus Family History Mother Hypertension CKD (chronic kidney disease) Father Cancer Social History household members: none Smoking Status: Current every day smoker Assessment & Plan Assessment & Plan narrative: 64 y/o male with acute hypoxic respiratory failure secondary to Covid-19 pneumonia. Patient with a mildly elevated procalcitonin. Will repeat if increasing add antibiotics for superimposed bacterial infection continue dexamethasone/remdesivir/baricitinib Will continue to taper oxygen and tolerated Lovenox for DVT prophylaxis Atrial Fibrillation -continue metoprolol for rate control Hypertension continue amlodipine and metoprolol Quality VTE Deep Vein Thrombosis/Pulmonary Embolism Present on Admission: No
[2020-11-14] MEDS: BARICITINIB 2 MG TABLET 4 MG PO (14:01)
[2020-11-14 14:49] LABS: Procalcitonin 0.77 ng/mL (<0.5)
--- NOTE | 2020-11-14 16:59 | PC.NURSE ---
Shift Note Alert and oriented x3. On heated HFNC, currently at 55L and 60% FiO2. Reviewed rationale for proning, coughing and deep breathing, using the IS, and using the acapella - pt is agreeable to all of the above. Placed far on side after lunch, pt tolerating well. SpO2 at 92-94% while on side, occ. desats to 86% when sitting up in bed. Short of breath with exertion, desats to 80s with any activity. RR was in the 30s at start of shift and now in the 20s. HR up to the 130s afib RVR at 1000, reported to MD and order received for additional IV metoprolol - given per emar. HR now in the 80s, afib. Call light within reach, using appropriately to make needs known. Pt gave verbal permission for brothers (Mikey and Benjy) to receive information/updates about his care along with Gi and chart has been updated accordingly.
[2020-11-14] MEDS: MELATONIN 3 MG TABLET 9 MG PO (20:18)
[2020-11-14] MEDS: SODIUM CHLORIDE 0.9% FLUSH 10 ML IV (20:19)
[2020-11-15] VITALS (22 sets, daily range): BP systolic 101–127; BP diastolic 54–83; PULSE 73–106; RESP 18–33; TEMP 36.3–37; O2SAT 87–96
[2020-11-15 05:35] LABS: Add Manual Diff / Slide Review NO; Basophils Absolute Auto 100 /uL (0-100); Basophils Percent Auto 1.6 % (0-2); Eosinophils Absolute Auto 0 /uL (0-450); Hematocrit 38.5 % (41-53); Lymphocytes Absolute Auto 500 /uL (1100-4500); Lymphocytes Percent Auto 6.2 % (25-40); Mean Corpuscular HGB Conc 33.7 % (30-36); Mean Corpuscular Hemoglobin 29.2 PG (26-34); Mean Corpuscular Volume 86.7 fL (80-100); Monocytes Absolute Auto 600 /uL (0-900); Monocytes Percent Auto 6.9 % (3-14); Neutrophils Absolute Auto 7200 /uL (1500-7000); Neutrophils Percent Auto 85.3 % (50-75); Platelet Count 214 X10^3/uL (150-400); Red Blood Cell Count 4.44 X10^6/uL (4.5-5.9); Red Cell Distribution Width 13.4 % (11.6-14.8); White Blood Cell Count 8.4 X10^3/uL (4.5-11.0)
[2020-11-15 05:40] LABS: Alanine Aminotransferase 62 IU/L (<50); Albumin 3.3 g/dL (3.5-5.0); Albumin Globulin Ratio 1.1 (1.0-2.8); Alkaline Phosphatase 69 U/L (38-126); Aspartate Aminotransferase 75 IU/L (17-59); BUN Creatinine Ratio 33.6 (6-22); Bilirubin Total 0.4 mg/dL (0.2-1.3); Blood Urea Nitrogen 48 mg/dL (9-20); Calcium 8.9 mg/dL (8.4-10.2); Carbon Dioxide 19 mmol/L (22-32); Chloride 112 mmol/L (98-107); Globulin 3.1 g/dL (1.7-4.1); Glucose 127 mg/dL (80-110); HEMOLYSIS 22 (0-50); Potassium 4.2 mmol/L (3.4-5.1); Sodium 136 mmol/L (137-145); Total Protein 6.4 g/dL (6.3-8.2)
[2020-11-15] MEDS: REMDESIVIR 100 MG in SODIUM CHLORIDE 0.9% 230 ML 250 ML IV (08:09)
[2020-11-15] MEDS: GABAPENTIN 300 MG CAPSULE PO ×2 (08:10→20:24)
[2020-11-15] MEDS: METOPROLOL IR 25 MG TABLET PO ×2 (08:10→20:24)
[2020-11-15] MEDS: dexAMETHasone 1 MG TABLET 6 MG PO (08:10)
[2020-11-15] MEDS: HEPARIN 5,000 UNIT/ML VIAL 5000 UNIT SUBCUT ×2 (08:10→20:24)
[2020-11-15] MEDS: SODIUM CHLORIDE 0.9% FLUSH 10 ML IV ×3 (08:11→20:23)
[2020-11-15] MEDS: BARICITINIB 2 MG TABLET 4 MG PO (08:12)
--- NOTE | 2020-11-15 10:52 | PM.PN.1 ---
Subjective Subjective Interval history: 70 y/o male admitted with Covid-19 pneumonia and acute hypoxic respiratory failure. He continue to require high flow oxygen. He feels improved today. Patient with minimal cough and improved appetite Exam Vital Signs (past 8 hours): - 11/15/20 04:00 11/15/20 04:16 11/15/20 05:40 Temperature 98.0 F Pulse Rate 92 H Respiratory Rate 20 Blood Pressure 101/55 L Pulse Oximetry 92 90 L 11/15/20 08:00 11/15/20 09:50 11/15/20 10:10 Temperature 97.9 F Pulse Rate 86 Respiratory Rate 25 H Blood Pressure 121/78 104/64 Pulse Oximetry 94 95 91 11/15/20 10:25 Temperature Pulse Rate 80 Respiratory Rate 23 Blood Pressure Pulse Oximetry 93 Fraction of Inspired Oxygen 50 Oxygen Delivery Method Heated High Flow Oxygen Flow Rate 55 Narrative Exam Narrative: ill appearing elderly male on high flow oxygen Chest Other: Decreased breath sounds bilaterally with occassional scattered crackles Cardio Other: RRR nl Sl S2 2/6 ESE GI Other: Abd: soft/ non tender/ non distended Extrem Other: no edema Objective Labs Result Diagrams: 11/15/20 05:15 11/15/20 05:15 Labs: Laboratory Results - last 24 hr 11/14/20 11/14/20 11/15/20 05:23 10:35 05:15 WBC 8.4 RBC 4.44 L Hgb 13.0 L Hct 38.5 L MCV 86.7 MCH 29.2 MCHC 33.7 RDW 13.4 Plt Count 214 Neut % (Auto) 85.3 H Lymph % (Auto) 6.2 L [place] % (Auto) 6.9 Eos % (Auto) 0.0 L Baso % (Auto) 1.6 Neut # (Auto) 7200 H Lymph # (Auto) 500 L [place] # (Auto) 600 Eos # (Auto) 0 Baso # (Auto) 100 Sodium Potassium Chloride Carbon Dioxide BUN Creatinine Estimated GFR BUN/Creatinine Ratio Glucose Calcium Total Bilirubin AST ALT Alkaline Phosphatase Total Protein Albumin Globulin Albumin/Globulin Ratio Procalcitonin 0.77 H Nasal Screen MRSA (PCR) Negative for mrsa 11/15/20 05:15 WBC RBC Hgb Hct MCV MCH MCHC RDW Plt Count Neut % (Auto) Lymph % (Auto) [place] % (Auto) Eos % (Auto) Baso % (Auto) Neut # (Auto) Lymph # (Auto) [place] # (Auto) Eos # (Auto) Baso # (Auto) Sodium 136 L Potassium 4.2 Chloride 112 H Carbon Dioxide 19 L BUN 48 H Creatinine 1.43 H Estimated GFR 49.0 L BUN/Creatinine Ratio 33.6 H Glucose 127 H Calcium 8.9 Total Bilirubin 0.4 AST 75 H ALT 62 H Alkaline Phosphatase 69 Total Protein 6.4 Albumin 3.3 L Globulin 3.1 Albumin/Globulin Ratio 1.1 Procalcitonin Nasal Screen MRSA (PCR) [facility] Medical History (Updated 11/14/20 @ 02:13 by EM Kruse-PHIL) Alcohol use disorder, moderate, in early remission History of pineal cyst Hypertension Tobacco abuse, in remission Surgical History (Updated 11/14/20 @ 02:13 by EM Kruse-PHIL) History of extraction of renal calculus Family History Mother Hypertension CKD (chronic kidney disease) Father Cancer Social History household members: none Smoking Status: Current every day smoker Assessment & Plan Assessment & Plan narrative: 64 y/o male with acute hypoxic respiratory failure secondary to Covid-19 pneumonia. Patient with a mildly elevated procalcitonin. Will repeat if increasing add antibiotics for superimposed bacterial infection continue dexamethasone/remdesivir/baricitinib Will continue to taper oxygen and tolerated Lovenox for DVT prophylaxis Patient making slow progress will encourage proning Atrial Fibrillation -continue metoprolol for rate control -rate controlled currently Hypertension blood pressure low on lisinopril, amlodipine, and metoprolol For now hold amlodipine and lisinopril will titrate metoprolol for heart rate and blood pressure Acute Kidney Injury -Likely secondary to Covid-19 Pneumonia and ATN -improving -will monitor closely -avoid nephrotoxic agents -ACEi-held Triamterene/HCTZ on hold as well Quality VTE Deep Vein Thrombosis/Pulmonary Embolism Present on Admission: No
--- NOTE | 2020-11-15 10:59 | DI.RAD.S_ITS ---
PROCEDURE: XR CHEST 1V INDICATIONS: Covid pneumonia TECHNIQUE: One view of the chest was acquired. COMPARISON: [facility], CR, XR CHEST 1V, 11/13/2020, 14:55. FINDINGS: Surgical changes and devices: None. Lungs and pleura: Bilateral patchy airspace opacities, moderate to severe. Findings not significantly changed. No pleural effusions or pneumothorax. Mediastinum: Mediastinal contours appear normal. Heart size is normal. Bones and chest wall: No suspicious bony lesions. Overlying soft tissues appear unremarkable. IMPRESSION: Bilateral patchy airspace opacities, moderate to severe. Findings in keeping with COVID-19 pneumonia. Findings not significantly changed. Dictated by: Sam Genao M.D. on 11/15/2020 at 13:16 Approved by: Sam Genao M.D. on 11/15/2020 at 13:18
--- NOTE | 2020-11-15 14:24 | PC.NURSE ---
Pt is AO x4 with BUE tremors which he states is normal for him. Pt states breathing feels a little better since being admitted to hospital. Educated him to COVID PNA, treatments, and pulmonary hygiene. Pt is agreeable to self prone which he did from [id number] and 1400 to present. While prone, SPO2 ranges 91-94% on 55L 45% FIO2 HHFNC. RR 23-25. While upright for meals, SPO2 ranges from 88-91% on same settings. Gave update to pt's s/o via phone per pt request. Call light in easy reach.
[2020-11-15] MEDS: MAGNESIUM HYDROXIDE 30 ML UDC PO (19:37)
[2020-11-15] MEDS: LORazepam 0.5 MG TABLET PO (20:24)
[2020-11-15] MEDS: MELATONIN 3 MG TABLET 9 MG PO (20:24)
--- NOTE | 2020-11-15 22:25 | PC.NURSE ---
Pt presents A&Ox4 on heated high flow at 50L 45%. Beginning of shift pt transitioned from prone to supine and dropped to 82% and returned to 92% after 15min of rest. Pt's A fib also increased to 100-125 and did not return to 100 or below for an hour. Through out the day pt's SpO2 would fluctuated from 85-90% with repositioning, eating and talking on the phone. 1840: RT increased to 50L 55% and pt has been consistently above 90% at rest and HR consistently remained below 100. Pt ate dinner, had a 500cc urine output this shift and reports pain in the chest only when coughing. Pt coughs with repositioning. Pt has been talking with family on the phone and this RN gave an update to the daughter Gi [phone]. Pt proned at 2130 and tolerated well. Was given ativan 30min prior for anxiety. Pt has visible tremors to bilateral upper extremities and he reports that this is his baseline and they have gotten worse with his recent COVID infection. Pt reports that he used to drink but stopped in July. Pt denies, BAILON, nausea, light sensitivity. The tremors have remained unchanged during this shift.
[2020-11-16] VITALS (26 sets, daily range): BP systolic 104–130; BP diastolic 60–79; PULSE 81–120; RESP 20–35; TEMP 36.6–37.4; O2SAT 83–99
--- NOTE | 2020-11-16 02:16 | PC.NURSE ---
Received report that pt was turned to prone position at 2130. Visual patient check at 2330 pt right side lying. 0040 - Pt reports feeling anxious and SOB. Educated patient to prone positioning, Pt states sleeping that way is hard for me Assist to reposition from supine to side lying. Sats decreased to 86%. Slow to recover. Discuss medication for anxiety, educated to dose times. Pt verbalizes understanding. comfort measures provided.
[2020-11-16] MEDS: MAGNESIUM HYDROXIDE 30 ML UDC PO (04:48)
[2020-11-16] MEDS: LORazepam 0.5 MG TABLET PO (04:48)
[2020-11-16 05:12] LABS: Add Manual Diff / Slide Review NO; Basophils Absolute Auto 0 /uL (0-100); Basophils Percent Auto 0.1 % (0-2); Eosinophils Absolute Auto 0 /uL (0-450); Hematocrit 40.9 % (41-53); Hemoglobin 13.8 g/dL (13.5-17.5); Lymphocytes Absolute Auto 1000 /uL (1100-4500); Lymphocytes Percent Auto 8.3 % (25-40); Mean Corpuscular HGB Conc 33.6 % (30-36); Mean Corpuscular Hemoglobin 28.8 PG (26-34); Mean Corpuscular Volume 85.8 fL (80-100); Monocytes Absolute Auto 900 /uL (0-900); Monocytes Percent Auto 7.3 % (3-14); Neutrophils Absolute Auto 10400 /uL (1500-7000); Neutrophils Percent Auto 84.3 % (50-75); Platelet Count 231 X10^3/uL (150-400); Red Blood Cell Count 4.77 X10^6/uL (4.5-5.9); Red Cell Distribution Width 13.2 % (11.6-14.8); White Blood Cell Count 12.4 X10^3/uL (4.5-11.0)
[2020-11-16 05:17] LABS: Alanine Aminotransferase 209 IU/L (<50); Albumin 3.4 g/dL (3.5-5.0); Albumin Globulin Ratio 1.1 (1.0-2.8); Alkaline Phosphatase 93 U/L (38-126); Aspartate Aminotransferase 145 IU/L (17-59); Bilirubin Total 0.7 mg/dL (0.2-1.3); Blood Urea Nitrogen 40 mg/dL (9-20); Calcium 9.2 mg/dL (8.4-10.2); Carbon Dioxide 21 mmol/L (22-32); Chloride 109 mmol/L (98-107); Estimated Glomerular Filt Rate > 60.0 mL/min (>60); Globulin 3.2 g/dL (1.7-4.1); Glucose 103 mg/dL (80-110); HEMOLYSIS < 15 (0-50); Potassium 4.4 mmol/L (3.4-5.1); Sodium 137 mmol/L (137-145); Total Protein 6.6 g/dL (6.3-8.2)
[2020-11-16] MEDS: HEPARIN 5,000 UNIT/ML VIAL 5000 UNIT SUBCUT ×2 (08:33→21:09)
[2020-11-16] MEDS: GABAPENTIN 300 MG CAPSULE PO ×2 (08:33→21:09)
[2020-11-16] MEDS: dexAMETHasone 1 MG TABLET 6 MG PO (08:33)
[2020-11-16] MEDS: METOPROLOL IR 25 MG TABLET PO (08:33)
[2020-11-16] MEDS: BARICITINIB 2 MG TABLET 4 MG PO (08:34)
[2020-11-16] MEDS: REMDESIVIR 100 MG in SODIUM CHLORIDE 0.9% 230 ML 250 ML IV (08:34)
[2020-11-16] MEDS: SODIUM CHLORIDE 0.9% FLUSH 10 ML IV ×3 (08:35→20:34)
[2020-11-16] MEDS: CODEINE/GUAIFENESIN LIQUID 5ML UDC 10 ML PO ×2 (12:23→20:07)
[2020-11-16] MEDS: LORazepam 1 MG TABLET PO ×2 (12:24→20:07)
--- NOTE | 2020-11-16 13:50 | CM.DPC ---
DCP: continued: Case received, EMR reviewed, discussed in Team Rounds. Noted: COVID+ specialized precautions. Pt has not had any COVID vaccinations. INPT admission status Payer: [facility] Pt continues with care under hospitalist team for treatment of Covid-19 pneumonia and acute hypoxic respiratory failure. Dr. Gupta says he is continuing to need the heated high flow oxygen, although attempts have been made at weaning. See that pt was functionally independent in community at baseline and does live alone. A supportive life Partner Gi does not live with pt. DCP team will be following as POC unfolds to assist with d/c issues/options.
--- NOTE | 2020-11-16 14:13 | PC.NURSE ---
Pt reports increased cough without sputum production. Pt desats with coughing to 86% and HR 130s-160s. States unable to prone due to discomfort and anxiety. Pt states he felt some benefit from PRN lorazepam and may be able to prone if he has that beforehand. Unfortunately, medication not able to be given due to too soon. Discussed assessment findings, VS, HR/rhythm, cough sx, and anxiety to Dr. Gupta. Orders received to increase dose/frequency of lorazepam as well as cough syrup. PRNs given at lunch time and pt was agreeable and assisted to prone at 1330. SPO2 increased from 91-94% to 94-97% on HHFNC 50L 40% FIO2. ~1400, HR noted to be increasing 110s-130s Afib RVR BBB. Notified Dr. Gupta.
[2020-11-16] MEDS: METOPROLOL ER 50 MG TABLET PO ×2 (15:24→20:07)
--- NOTE | 2020-11-16 18:37 | P.PN_ITS ---
Subjective Subjective Interval history: Patient is a 70-year-old male admitted to the hospital with acute hypoxic respiratory failure secondary to COVID pneumonia. Patient continues to be markedly hypoxic and requires high-flow oxygen. He has had coughing which causes him to desaturate, minimal activity causes him to desaturate, patient remains tachycardic intermittently as well. He is now on 45% FiO2 with 50 L of oxygen Exam Vital Signs (past 8 hours): - 11/16/20 11:45 11/16/20 12:00 11/16/20 14:36 Temperature 98.5 F Pulse Rate 98 H 96 H 102 H Respiratory Rate 20 24 26 H Blood Pressure 118/68 104/69 104/69 Pulse Oximetry 92 92 93 11/16/20 15:24 11/16/20 16:00 11/16/20 16:54 Temperature 98.1 F Pulse Rate 112 H 109 H 93 H Respiratory Rate 33 H 26 H Blood Pressure 117/76 117/76 117/76 Pulse Oximetry 83 L 92 Fraction of Inspired Oxygen 45 Oxygen Delivery Method Heated High Flow Oxygen Flow Rate 50 Narrative Exam Narrative: Ill-appearing gentleman lying in bed Resp Other: Lungs: Decreased breath sounds with occasional scattered crackles Cardio Other: Cardiac exam: Tachycardic irregularly irregular normal S1-S2 GI Other: Abdomen: Soft nontender nondistended Extrem Other: no edema Objective Labs Result Diagrams: 11/16/20 04:30 11/16/20 04:30 Labs: Laboratory Results - last 24 hr 11/16/20 11/16/20 04:30 04:30 WBC 12.4 H RBC 4.77 Hgb 13.8 Hct 40.9 L MCV 85.8 MCH 28.8 MCHC 33.6 RDW 13.2 Plt Count 231 Neut % (Auto) 84.3 H Lymph % (Auto) 8.[address] [place] % (Auto) 7.3 Eos % (Auto) 0.0 L Baso % (Auto) 0.1 Neut # (Auto) 45827 H Lymph # (Auto) [address] [place] # (Auto) 900 Eos # (Auto) 0 Baso # (Auto) 0 Sodium 137 Potassium 4.4 Chloride 109 H Carbon Dioxide 21 L BUN 40 H Creatinine 1.11 Estimated GFR > 60.0 BUN/Creatinine Ratio 36.0 H Glucose 103 Calcium 9.2 Total Bilirubin 0.7 AST 145 H ALT 209 H Alkaline Phosphatase 93 Total Protein 6.6 Albumin 3.4 L Globulin 3.2 Albumin/Globulin Ratio 1.1 [facility] Medical History (Updated 11/14/20 @ 02:13 by CHLOE Kruse) Alcohol use disorder, moderate, in early remission History of pineal cyst Hypertension Tobacco abuse, in remission Surgical History (Updated 11/14/20 @ 02:13 by CHLOE Kruse) History of extraction of renal calculus Family History Mother Hypertension CKD (chronic kidney disease) Father Cancer Social History household members: none Smoking Status: Current every day smoker Assessment & Plan Assessment & Plan narrative: 64 y/o male with acute hypoxic respiratory failure secondary to Covid-19 pneumonia. Patient with a mildly elevated procalcitonin. Will repeat if increasing add antibiotics for superimposed bacterial infection continue dexamethasone/remdesivir/baricitinib Will continue to taper oxygen and tolerated Lovenox for DVT prophylaxis Patient making slow progress will encourage proning Patient with increasing liver function tests Will recheck labs in the morning, AST of from 75 now 145, ALT 62 now 209. Will discontinue remdesivir Continue baricitinib Atrial Fibrillation -continue metoprolol for rate control, will increase metoprolol to 50 b.i.d. and use as needed Lopressor for heart rate -rate controlled currently Hypertension blood pressure low on lisinopril, amlodipine, and metoprolol For now hold amlodipine and lisinopril will titrate metoprolol for heart rate and blood pressure Acute Kidney Injury -Likely secondary to Covid-19 Pneumonia and ATN -improving -will monitor closely -avoid nephrotoxic agents -ACEi-held Triamterene/HCTZ on hold as well Quality VTE Deep Vein Thrombosis/Pulmonary Embolism Present on Admission: No
[2020-11-16] MEDS: ACETAMINOPHEN 325 MG TABLET 650 MG PO (20:24)
[2020-11-16] MEDS: MELATONIN 3 MG TABLET 9 MG PO (21:09)
--- NOTE | 2020-11-16 22:39 | PC.NURSE ---
Beginning shift pt's HHF was at 50L and 45% and proning with SpO2 >89%. 1830 FiO2 increased to 50% and then to 60% at 1930. Pt destats into the low 80s with repositioning, eating and talking on the phone. Pt proned from [id number] and 2100 to 2300. Upon repositioning pt has extended period of strong non-productive coughing (5min). Pt's HR was 125-130 at beginning of shift and was given a 50mg PO metoprolol (an increase from his 25mg BID dose). Post administration of this dose pt's HR has remained 85-100 at rest and increased to 110-125 with exertion.
[2020-11-17] VITALS (20 sets, daily range): BP systolic 115–154; BP diastolic 62–77; PULSE 78–152; RESP 14–36; TEMP 36.5–37.4; O2SAT 83–99
[2020-11-17] MEDS: LORazepam 1 MG TABLET PO ×4 (00:39→20:58)
[2020-11-17] MEDS: METOPROLOL TARTRATE 5 MG/5 ML INJ IV ×3 (02:05→05:13)
[2020-11-17] MEDS: SODIUM CHLORIDE 0.9% FLUSH 10 ML IV ×5 (03:31→20:58)
[2020-11-17] MEDS: CODEINE/GUAIFENESIN LIQUID 5ML UDC 10 ML PO (03:45)
[2020-11-17 05:14] LABS: Alanine Aminotransferase 126 IU/L (<50); Albumin 3.4 g/dL (3.5-5.0); Albumin Globulin Ratio 1.1 (1.0-2.8); Alkaline Phosphatase 94 U/L (38-126); Aspartate Aminotransferase 67 IU/L (17-59); BUN Creatinine Ratio 29.7 (6-22); Bilirubin Total 0.7 mg/dL (0.2-1.3); Blood Urea Nitrogen 33 mg/dL (9-20); Calcium 8.9 mg/dL (8.4-10.2); Carbon Dioxide 22 mmol/L (22-32); Chloride 107 mmol/L (98-107); Estimated Glomerular Filt Rate > 60.0 mL/min (>60); Globulin 3.1 g/dL (1.7-4.1); Glucose 90 mg/dL (80-110); HEMOLYSIS < 15 (0-50); Potassium 4.3 mmol/L (3.4-5.1); Sodium 134 mmol/L (137-145); Total Protein 6.5 g/dL (6.3-8.2)
[2020-11-17 05:27] LABS: Procalcitonin 0.61 ng/mL (<0.5)
--- NOTE | 2020-11-17 05:27 | PC.NURSE ---
Pt. is alert and oriented but is forgetful. Pt. had taken off his heated hi flow nasal cannula several times. Pt. 02 sats would drop as low as in the 70's when NC off and during this episodes, noted pt's HR also increased as high as 160's afib. Informed pt. that he kimber't take 02 off if he wants to live and with his HR increased he could also have a heart attack. I have taped the pt's 02 cannula to his face preventing him from taking it off but pt. still able to manage to either take it down to his chin or up to his forehead. Pt. otherwise is denying pain, has frequent dry non productive cough which I gave guaifenesin with codeine, also given Ativan po earlier of my shift for c/o feeling anxious. CIWA score is 4/10. Pt. so far had received 3 doses of Metoprolol 5 mg IV. Informed hospitalist Lakesha with the situation and will order Digoxin. Cont. to reorient pt. frequently as needed, reiterate the need for 02 as his life is dependent on it at this time due to COVID PNA. Cont. to monitor and treat.
[2020-11-17] MEDS: DIGOXIN 500 MCG/2 ML AMPUL 250 MCG IV ×2 (05:40→06:38)
--- NOTE | 2020-11-17 05:54 | PC.NURSE ---
Repeated attempts to have pt. change into prone position, states ok but will only change to right side lying position.
[2020-11-17] MEDS: dexAMETHasone 1 MG TABLET 6 MG PO (08:00)
[2020-11-17] MEDS: GABAPENTIN 300 MG CAPSULE PO ×2 (08:01→20:58)
[2020-11-17] MEDS: METOPROLOL ER 50 MG TABLET PO (08:01)
[2020-11-17] MEDS: BARICITINIB 2 MG TABLET 4 MG PO (08:01)
[2020-11-17] MEDS: HEPARIN 5,000 UNIT/ML VIAL 5000 UNIT SUBCUT ×2 (08:01→20:58)
[2020-11-17 10:29] LABS: Fractionated Inspired Oxygen 70; HCO3 ABG 21 mmol/L (22-26); Oxygen Saturation ABG 94 % (95-100); PCO2 ABG 25.5 mmHg (35-45); PO2 ABG 63 mmHg (80-100); TCO2 ABG 21 mmol/L (21-31); pH ABG 7.51 (7.35-7.45)
[2020-11-17] MEDS: METOPROLOL IR 50 MG TABLET PO ×2 (12:25→17:22)
--- NOTE | 2020-11-17 16:48 | P.PN_ITS ---
Subjective Subjective Interval history: 70-year-old male admitted to the hospital with acute respiratory failure for COVID pneumonia. Patient has improved cough with cough syrup. He remains tachycardic at time and has had medications adjusted for his atrial fibrillation. He feels overall better. Use to require high-flow oxygen. Exam Vital Signs (past 8 hours): - 11/17/20 10:15 11/17/20 12:00 11/17/20 13:20 Temperature 99.2 F Pulse Rate 110 H 87 Respiratory Rate 28 H 18 28 H Blood Pressure 115/69 115/69 Pulse Oximetry 91 96 91 11/17/20 14:10 11/17/20 16:00 11/17/20 16:03 Temperature 97.7 F Pulse Rate 92 H 76 88 Respiratory Rate 24 21 28 H Blood Pressure 115/69 137/98 H Pulse Oximetry 93 89 L 92 Fraction of Inspired Oxygen 55 Oxygen Delivery Method Heated High Flow Oxygen Flow Rate 60 Narrative Exam Narrative: Ill-appearing male lying in bed on high-flow oxygen Resp Other: Lungs: Decreased breath sounds with occasional scattered crackles Cardio Other: Cardiac exam: Irregularly irregular, normal S1-S2 with a 2/6 systolic ej ection murmur GI Other: Abdomen soft nontender nondistended Extrem Other: Extremity no edema Objective Labs Result Diagrams: 11/16/20 04:30 11/17/20 04:05 Labs: Laboratory Results - last 24 hr 11/17/20 11/17/20 11/17/20 04:05 04:05 07:25 ABG pH 7.51 H ABG pCO2 25.5 L ABG pO2 63 L ABG HCO3 21 L ABG Total CO2 21 ABG O2 Saturation 94 L ABG Base Excess -2.0 FiO2 70 Sodium 134 L Potassium 4.3 Chloride 107 Carbon Dioxide 22 BUN 33 H Creatinine 1.11 Estimated GFR > 60.0 BUN/Creatinine Ratio 29.7 H Glucose 90 Calcium 8.9 Total Bilirubin 0.7 AST 67 H ALT 126 H Alkaline Phosphatase 94 Total Protein 6.5 Albumin 3.4 L Globulin 3.1 Albumin/Globulin Ratio 1.1 Procalcitonin 0.61 H [facility] Medical History (Updated 11/14/20 @ 02:13 by CHLOE Kruse) Alcohol use disorder, moderate, in early remission History of pineal cyst Hypertension Tobacco abuse, in remission Surgical History (Updated 11/14/20 @ 02:13 by Starr Arellano [facility]) History of extraction of renal calculus Family History Mother Hypertension CKD (chronic kidney disease) Father Cancer Social History household members: none Smoking Status: Current every day smoker Assessment & Plan Assessment & Plan narrative: 64 y/o male with acute hypoxic respiratory failure secondary to Covid-19 pneumonia. Patient with a mildly elevated procalcitonin. Will repeat if increasing add antibiotics for superimposed bacterial infection continue dexamethasone/remdesivir/baricitinib Will continue to taper oxygen and tolerated Lovenox for DVT prophylaxis Patient making slow progress will encourage proning Patient with increasing liver function tests Will recheck labs in the morning, AST of from 75 now 145, ALT 62 now 209. Will discontinue remdesivir, LFTs improving Continue baricitinib Atrial Fibrillation -continue metoprolol for rate control, will increase metoprolol to 50 b.i.d. and use as needed Lopressor for heart rate -rate controlled currently -metoprolol changed to 50 mg q.6 hours for improved rate control -patient was loaded on digoxin last evening Hypertension blood pressure low on lisinopril, amlodipine, and metoprolol For now hold amlodipine and lisinopril will titrate metoprolol for heart rate and blood pressure Blood pressure well controlled on metoprolol Acute Kidney Injury -Likely secondary to Covid-19 Pneumonia and ATN -improving -will monitor closely -avoid nephrotoxic agents -ACEi-held Triamterene/HCTZ on hold as well Quality VTE Deep Vein Thrombosis/Pulmonary Embolism Present on Admission: No
[2020-11-17] MEDS: MELATONIN 3 MG TABLET 9 MG PO (20:58)
[2020-11-18] VITALS (25 sets, daily range): BP systolic 91–129; BP diastolic 58–72; PULSE 70–120; RESP 16–35; TEMP 31–37.8; O2SAT 87–96
[2020-11-18] MEDS: METOPROLOL IR 50 MG TABLET PO ×5 (00:07→23:12)
[2020-11-18] MEDS: ONDANSETRON 4 MG ODT SL (04:34)
--- NOTE | 2020-11-18 06:46 | PC.NURSE ---
Pt. placed on CPAP with 10 Exp. pressure and 45% Fi02 by RT at 0150 for desaturation after pt. took off his NC. CPAP taken off at 0635 and pt. back to HHF at 60L, 55%. Pt. declines proning during the night, lung sounds with ins/exp ronchi, intermittent dry cough, pt. also had persistent hiccups which went away after given ODT Ondansetron. Pt. denies pain, Chand with 300 ml clear yellow output. Cont. to monitor and treat.
--- NOTE | 2020-11-18 07:23 | P.PN_ITS ---
Subjective Subjective Date Patient Seen: 11/18/20 Time Patient Seen: 13:23 Interval history: He is seen in his room here in the intensive care unit on 11/18/2020. Full protection is used for PPE. He is afebrile and vital signs are stable with a T-max of 99? and heart rate of 104. He is now on 55 L high- flow with 40% FiO2. There are no new labs today. Yesterday his AST dropped from 145 down to 67 and his ALT dropped into a 9 down to 126. The procalcitonin was 0.61. He says that he is feeling better and respiratory therapy reports that he has been very cooperative. Exam Vital Signs (past 8 hours): - 11/17/20 23:41 11/17/20 23:50 11/18/20 00:10 Temperature 98.2 F Pulse Rate 78 86 Respiratory Rate 28 H 29 H Blood Pressure 116/62 Pulse Oximetry 90 L 90 L 92 11/18/20 04:00 11/18/20 04:20 11/18/20 06:42 Temperature 99.0 F Pulse Rate 98 H 104 H Respiratory Rate 35 H 22 Blood Pressure 125/66 Pulse Oximetry 91 94 93 Fraction of Inspired Oxygen 40 Oxygen Delivery Method CPAP Oxygen Flow Rate 55 Narrative Exam Narrative: Alert and oriented x3, no apparent distress Heart is tachycardic regular rhythm no murmur Lungs are clear to auscultation bilaterally Extremities have no ankle edema Objective Labs Result Diagrams: 11/16/20 04:30 11/17/20 04:05 Labs: Laboratory Results - last 24 hr 11/17/20 07:25 ABG pH 7.51 H ABG pCO2 25.5 L ABG pO2 63 L ABG HCO3 21 L ABG Total CO2 21 ABG O2 Saturation 94 L ABG Base Excess -2.0 FiO2 70 PFSH Medical History (Updated 11/14/20 @ 02:13 by CHLOE Kruse) Alcohol use disorder, moderate, in early remission History of pineal cyst Hypertension Tobacco abuse, in remission Surgical History (Updated 11/14/20 @ 02:13 by CHLOE Kruse) History of extraction of renal calculus Family History Mother Hypertension CKD (chronic kidney disease) Father Cancer Social History household members: none Smoking Status: Current every day smoker Assessment & Plan Assessment & Plan narrative: 64 y/o male with acute hypoxic respiratory failure secondary to Covid-19 pneumonia. Patient with a mildly elevated procalcitonin which has dropped from 0.77 to 0.61 continue dexamethasone/baricitinib Will continue to taper oxygen as tolerated Lovenox for DVT prophylaxis Patient making slow progress encourage proning Patient with increasing liver function tests so Remdesivir was stopped AST has dropped from 143 down to 67 and ALT dropped from to 209 down to 126 yesterday. Continue baricitinib Atrial Fibrillation -continue metoprolol for rate control and use as needed Lopressor for heart rate -rate controlled currently -metoprolol changed to 50 mg q.6 hours for improved rate control -patient was loaded on digoxin 11/16 but has not needed it again. Hypertension blood pressure low on lisinopril, amlodipine, and metoprolol For now hold amlodipine and lisinopril will titrate metoprolol for heart rate and blood pressure Blood pressure well controlled on metoprolol Acute Kidney Injury -Likely secondary to Covid-19 Pneumonia and ATN -improving -will monitor closely -avoid nephrotoxic agents -ACEi-held Triamterene/HCTZ on hold as well Quality VTE Deep Vein Thrombosis/Pulmonary Embolism Present on Admission: No
[2020-11-18] MEDS: HEPARIN 5,000 UNIT/ML VIAL 5000 UNIT SUBCUT ×2 (08:41→20:40)
[2020-11-18] MEDS: dexAMETHasone 1 MG TABLET 6 MG PO (08:41)
[2020-11-18] MEDS: BARICITINIB 2 MG TABLET 4 MG PO (08:41)
[2020-11-18] MEDS: GABAPENTIN 300 MG CAPSULE PO ×2 (08:42→20:40)
[2020-11-18] MEDS: LORazepam 1 MG TABLET PO ×2 (08:42→20:41)
[2020-11-18] MEDS: SODIUM CHLORIDE 0.9% FLUSH 10 ML IV ×2 (08:42→20:41)
[2020-11-18] MEDS: ACETAMINOPHEN 325 MG TABLET 650 MG PO (12:26)
--- NOTE | 2020-11-18 12:34 | PC.NURSE ---
Addendum entered by Kelly Fairchild R.N. 11/18/20 18:13: Pt doing well this afternoon, tolerated CPAP at 40% FiO2 after lunch. Placed back on heated HFNC by RT at 50L and 50% FiO2 (see RT charting). Maintaining Spo2 in the 90-94% range, sitting up in bed eating dinner. Oriented x3, interactive with staff. Peripheral IVs x2 to left arm flush easily, good blood return, no erythema/pain with flushing thus sites not changed at this time. Original Note: Day Shift Note Pt alert and oriented to person and place, fatigued. Side lying after breakfast until lunch, tolerated well with PO ativan, SpO2 95-96% with RR in the 20s while in that position. Heated HFNC at 55L and 55% FiO2. Afib CVR/RVR 90-110s at rest, up to 130s when repositioning self in bed. Call light within reach and bed alarm on.
--- NOTE | 2020-11-18 15:19 | CM.DPC ---
DCP Cont: Discussed patient during team rounds. According to RT, patient is continuing to improve and has been compliant with working with respiratory therapists. He is still on oxygen. P: DCP to continue to follow. Discharge plan is for home when he is medically stable and does not need oxygen support. Sejal Jeff RN/Log Deckman
--- NOTE | 2020-11-18 20:05 | PC.NURSE ---
Addendum entered by Panfilo Escobedo R.N. 11/18/20 21:31: Gi (significant other) Jovita (friend) Original Note: Patient states that: brothers Mikey and Gibson are HIPPA ok. Ex- Amanda is HIPPA ok. Significant other Gi is HIPPA ok. Friend Jovita is HIPPA ok.
[2020-11-18] MEDS: MELATONIN 3 MG TABLET 9 MG PO (20:40)
[2020-11-19] VITALS (27 sets, daily range): BP systolic 85–123; BP diastolic 57–76; PULSE 74–133; RESP 16–36; TEMP 34–37.1; O2SAT 90–98
[2020-11-19 08:40] LABS: Add Manual Diff / Slide Review NO; Basophils Absolute Auto 0 /uL (0-100); Basophils Percent Auto 0.1 % (0-2); Eosinophils Absolute Auto 100 /uL (0-450); Eosinophils Percent Auto 0.4 % (2-4); Hematocrit 36.3 % (41-53); Hemoglobin 12.3 g/dL (13.5-17.5); Lymphocytes Absolute Auto 500 /uL (1100-4500); Lymphocytes Percent Auto 3.5 % (25-40); Mean Corpuscular HGB Conc 33.9 % (30-36); Mean Corpuscular Hemoglobin 29.2 PG (26-34); Monocytes Absolute Auto 700 /uL (0-900); Neutrophils Absolute Auto 12900 /uL (1500-7000); Platelet Count 275 X10^3/uL (150-400); Red Blood Cell Count 4.22 X10^6/uL (4.5-5.9); Red Cell Distribution Width 13.2 % (11.6-14.8); White Blood Cell Count 14.2 X10^3/uL (4.5-11.0)
[2020-11-19 08:57] LABS: BUN Creatinine Ratio 23.6 (6-22); Blood Urea Nitrogen 25 mg/dL (9-20); Carbon Dioxide 21 mmol/L (22-32); Chloride 108 mmol/L (98-107); Estimated Glomerular Filt Rate > 60.0 mL/min (>60); Glucose 125 mg/dL (80-110); HEMOLYSIS < 15 (0-50); Potassium 4.4 mmol/L (3.4-5.1); Sodium 133 mmol/L (137-145)
[2020-11-19] MEDS: dexAMETHasone 1 MG TABLET 6 MG PO (09:55)
[2020-11-19] MEDS: METOPROLOL IR 25 MG TABLET PO (09:55)
[2020-11-19] MEDS: SODIUM CHLORIDE 0.9% FLUSH 10 ML IV (09:55)
[2020-11-19] MEDS: GABAPENTIN 300 MG CAPSULE PO ×2 (09:55→20:49)
[2020-11-19] MEDS: HEPARIN 5,000 UNIT/ML VIAL 5000 UNIT SUBCUT ×2 (09:55→20:49)
[2020-11-19] MEDS: BARICITINIB 2 MG TABLET 4 MG PO (09:56)
--- NOTE | 2020-11-19 10:30 | CM.DPC ---
DCP Cont: Discussed patient during team rounds. He is continuing to be on high flow oxygen. There have been minimal changes at this time. P: DCP to continue to follow, and will be available for any resources needed. Sejal Jeff RN/[employer]
--- NOTE | 2020-11-19 10:53 | P.PN_ITS ---
Subjective Subjective Date Patient Seen: 11/19/20 Time Patient Seen: 08:00 Interval history: Today he feels not significantly different than yesterday. He has mild shortness of breath. No sputum production. Feels tired. His diarrhea has resolved. Exam Vital Signs (past 8 hours): - 11/19/20 03:00 11/19/20 04:00 11/19/20 04:44 Temperature 94.4 F L 97.2 F L Pulse Rate 95 H 74 87 Respiratory Rate 27 H 24 22 Blood Pressure 95/57 L 95/57 L Pulse Oximetry 92 96 98 11/19/20 05:00 11/19/20 05:40 11/19/20 06:27 Temperature Pulse Rate 76 Respiratory Rate 22 Blood Pressure 85/57 L Pulse Oximetry 97 96 Fraction of Inspired Oxygen 40 Oxygen Delivery Method CPAP Oxygen Flow Rate 40 Narrative Exam Narrative: GEN: alert and oriented x3, no apparent distress CV: tachycardic and irregular PULM: decreased breath sounds bilaterally with right sided crackles EXT: no edema Objective Labs Result Diagrams: 11/19/20 08:00 11/19/20 08:30 Labs: Laboratory Results - last 24 hr 11/19/20 11/19/20 08:00 08:30 WBC 14.2 H RBC 4.22 L Hgb 12.3 L Hct 36.3 L MCV 86.0 MCH 29.2 MCHC 33.9 RDW 13.2 Plt Count 275 Neut % (Auto) 91.0 H Lymph % (Auto) 3.5 L [place] % (Auto) 5.0 Eos % (Auto) 0.4 L Baso % (Auto) 0.1 Neut # (Auto) 99088 H Lymph # (Auto) 500 L [place] # (Auto) 700 Eos # (Auto) 100 Baso # (Auto) 0 Sodium 133 L Potassium 4.4 Chloride 108 H Carbon Dioxide 21 L BUN 25 H Creatinine 1.06 Estimated GFR > 60.0 BUN/Creatinine Ratio 23.6 H Glucose 125 H Calcium 9.0 PFSH Medical History (Updated 11/14/20 @ 02:13 by CHLOE Krsue) Alcohol use disorder, moderate, in early remission History of pineal cyst Hypertension Tobacco abuse, in remission Surgical History (Updated 11/14/20 @ 02:13 by CHLOE Kruse) History of extraction of renal calculus Family History Mother Hypertension CKD (chronic kidney disease) Father Cancer Social History household members: none Smoking Status: Current every day smoker Assessment & Plan Assessment & Plan narrative: Mr. Shaffer is a 64 y/o male with acute hypoxic respiratory failure secondary to Covid-19 pneumonia. 1. Acute hypoxemic respiratory failure secondary to COVID pneumonia -Patient with a mildly elevated procalcitonin which has dropped from 0.77 to 0.61 -continue dexamethasone/baricitinib -Will continue to taper oxygen as tolerated -Lovenox for DVT prophylaxis -Patient making slow progress -encourage proning -Patient with increasing liver function tests so Remdesivir was stopped -AST has dropped from 143 down to 67 and ALT dropped from to 209 down to 126 yesterday. -Continue baricitinib Atrial Fibrillation -continue metoprolol for rate control and use as needed Lopressor for heart rate -rate controlled currently -metoprolol changed to 50 mg q.6 hours for improved rate control, however his pressure dropped to 80s today, will decrease back to 25mg BID and give additional digoxin if becomes tachycardic -patient was loaded on digoxin 11/16 but has not needed it again. Hypertension -blood pressure low on lisinopril, amlodipine, and metoprolol -For now hold amlodipine and lisinopril -will titrate metoprolol for heart rate and blood pressure Acute Kidney Injury -Likely secondary to Covid-19 Pneumonia and ATN -improving -will monitor closely -avoid nephrotoxic agents -ACEi-held -Triamterene/HCTZ on hold as well Code status: Full code Surrogate decision maker: Gi Richardson-partner Quality VTE Deep Vein Thrombosis/Pulmonary Embolism Present on Admission: No
[2020-11-19] MEDS: BACLOFEN 10 MG TABLET 5 MG PO (12:15)
[2020-11-19] MEDS: CALCIUM CARBONATE 500 MG TAB PO (12:15)
[2020-11-19] MEDS: DIGOXIN 500 MCG/2 ML AMPUL 250 MCG IV (17:42)
[2020-11-19] MEDS: METOPROLOL IR 25 MG TABLET 50 MG PO ×2 (17:43→20:49)
--- NOTE | 2020-11-19 17:52 | PC.NURSE ---
HR noted to be sustaining 130s-140s, Afib. BP 123/68. Pt sitting up to chair eating dinner. Denies chest pain, pressure, palpitations. Denies dizziness/lightheadedness. Notified hospitalist. Orders received for PO metoprolol and IV digoxin.
[2020-11-19] MEDS: LORazepam 1 MG TABLET PO (19:27)
[2020-11-19] MEDS: MELATONIN 3 MG TABLET 9 MG PO (20:49)
[2020-11-20] VITALS (24 sets, daily range): BP systolic 102–130; BP diastolic 58–84; PULSE 80–136; RESP 15–58; TEMP 33–37; O2SAT 86–99
[2020-11-20 04:30] LABS: Hematocrit 36.7 % (41-53); Hemoglobin 12.5 g/dL (13.5-17.5); Mean Corpuscular HGB Conc 34.2 % (30-36); Mean Corpuscular Hemoglobin 29.2 PG (26-34); Mean Corpuscular Volume 85.3 fL (80-100); Platelet Count 277 X10^3/uL (150-400); Red Cell Distribution Width 13.2 % (11.6-14.8); White Blood Cell Count 15.4 X10^3/uL (4.5-11.0)
[2020-11-20 04:52] LABS: BUN Creatinine Ratio 26.6 (6-22); Blood Urea Nitrogen 25 mg/dL (9-20); Calcium 8.9 mg/dL (8.4-10.2); Carbon Dioxide 23 mmol/L (22-32); Chloride 107 mmol/L (98-107); Estimated Glomerular Filt Rate > 60.0 mL/min (>60); Glucose 120 mg/dL (80-110); HEMOLYSIS < 15 (0-50); Potassium 4.7 mmol/L (3.4-5.1); Sodium 132 mmol/L (137-145)
--- NOTE | 2020-11-20 06:07 | PC.NURSE ---
7pm-7am shift note-Patient sat up in chair until 2100 with 15L HFNC, SpO2 >93%, denies respiratory distress. After receiving HS meds, including PO Ativan per his request, the C-pap of FIO2 60% was placed on for the night. He slept well on his sides, tolerating C-pap.
[2020-11-20] MEDS: DIGOXIN 500 MCG/2 ML AMPUL 250 MCG IV (08:42)
[2020-11-20] MEDS: BARICITINIB 2 MG TABLET 4 MG PO (08:42)
[2020-11-20] MEDS: ENOXAPARIN 80 MG/0.8 ML SYRINGE 75 MG SUBCUT ×2 (08:42→21:14)
[2020-11-20] MEDS: METOPROLOL IR 25 MG TABLET 50 MG PO ×2 (08:43→21:15)
[2020-11-20] MEDS: dexAMETHasone 1 MG TABLET 6 MG PO (08:43)
[2020-11-20] MEDS: CALCIUM CARBONATE 500 MG TAB PO (08:43)
[2020-11-20] MEDS: GABAPENTIN 300 MG CAPSULE PO ×2 (08:43→21:14)
[2020-11-20] MEDS: SODIUM CHLORIDE 0.9% FLUSH 10 ML IV ×2 (08:44→21:14)
[2020-11-20] MEDS: CODEINE/GUAIFENESIN LIQUID 5ML UDC 10 ML PO ×2 (08:55→19:37)
--- NOTE | 2020-11-20 12:32 | DIET.PN ---
Dietary Progress Note Assessment: 70y M admitted for SOB found to be Covid+ hospitalized x7d. RD added ONS Ensure Max c lunches upon admit to support high PRO needs. Pts POs 10-50% x5d though pt is drinking ONS providing 50% PRO needs. Pt not forthcoming to nursing regarding his food preferences at mealtime. Pt was supposed to have dentures fitted this week, pt c poor dentition and eats soft diet at home. RD called to room and spoke c pt regarding meal preferences and optimizing nutrition state. Pt meal preferences: B: tea, yogurt, blueberries L: soft sandwich or soup D: soft meat c mashed potatoes HT: 167.6cm WT: 75.7kg BMI: 26.9 Labs:WBC 15.4 H, elevated LFTs Nutrition Diagnosis: inadequate protein calorie intake r/t difficulty chewing and poor appetite aeb pts POs 10-50% x5d, pt has poor dentition c future denture fitting appt, pt covid+ on O2 support. Interventions: 1. Adjusted pts diet order to Dysphagia Advanced [facility] Healthy secondary to poor dentition. 2. Continue ONS Ensure Max c lunch. Encouraged pt to continue drinking ONS, pt agrees. Diet Order: Dysphagia [facility] Monitoring/Evaluations: POs
--- NOTE | 2020-11-20 14:11 | PM.PN.1 ---
Subjective Subjective Date Patient Seen: 11/20/20 Time Patient Seen: 08:00 Interval history: Today he feels about the same as yesterday. Mild shortness of breath, coughing nonproductive. He did have tachycardia yesterday and got a dose of IV digoxin. Today in bed he is satting in the high 80s on 15L o2. Exam Vital Signs (past 8 hours): - 11/20/20 07:45 11/20/20 08:00 11/20/20 08:42 Temperature 97.9 F Pulse Rate 123 H 96 H 118 H Respiratory Rate 18 20 Blood Pressure 107/58 L Pulse Oximetry 90 L 89 L 11/20/20 11:25 11/20/20 12:00 11/20/20 12:40 Temperature 98.1 F Pulse Rate 90 Respiratory Rate 22 Blood Pressure 115/73 Pulse Oximetry 96 99 86 L Fraction of Inspired Oxygen 60 Oxygen Delivery Method High Flow Nasal Cannula Oxygen Flow Rate 12 Narrative Exam Narrative: GEN: alert and oriented x3, no apparent distress CV: tachycardic and irregular PULM: decreased breath sounds bilaterally with right sided crackles EXT: no edema Objective Labs Result Diagrams: 11/20/20 04:15 11/20/20 04:15 Labs: Laboratory Results - last 24 hr 11/20/20 11/20/20 04:15 04:15 WBC 15.4 H RBC 4.30 L Hgb 12.5 L Hct 36.7 L MCV 85.3 MCH 29.2 MCHC 34.2 RDW 13.2 Plt Count 277 Sodium 132 L Potassium 4.7 Chloride 107 Carbon Dioxide 23 BUN 25 H Creatinine 0.94 Estimated GFR > 60.0 BUN/Creatinine Ratio 26.6 H Glucose 120 H Calcium 8.9 PFSH Medical History (Updated 11/14/20 @ 02:13 by CHLOE Kruse) Alcohol use disorder, moderate, in early remission History of pineal cyst Hypertension Tobacco abuse, in remission Surgical History (Updated 11/14/20 @ 02:13 by CHLOE Kruse) History of extraction of renal calculus Family History Mother Hypertension CKD (chronic kidney disease) Father Cancer Social History household members: none Smoking Status: Current every day smoker Assessment & Plan Assessment & Plan narrative: Mr. Shaffer is a 64 y/o male with acute hypoxic respiratory failure secondary to Covid-19 pneumonia. 1. Acute hypoxemic respiratory failure secondary to COVID pneumonia -continue dexamethasone/baricitinib -Will continue to taper oxygen as tolerated -Lovenox for DVT prophylaxis -Patient making slow progress -encourage proning -Patient with increasing liver function tests so Remdesivir was stopped -Continue baricitinib Atrial Fibrillation -continue metoprolol for rate control and use as needed Lopressor for heart rate -rate controlled currently -metoprolol changed to 50 mg q.6 hours for improved rate control, however his pressure dropped to 80s today, will decrease back to 25mg BID and give additional digoxin if becomes tachycardic -increased metoprolol back to 50mg BID due to continued tachycardia -patient was loaded on digoxin 11/16 and then again on 11/19 and continued on maintenanc dose -chadsvasc score of 2, discussed with patient and will start full dose lovenox for anticoagulation Hypertension -blood pressure low on lisinopril, amlodipine, and metoprolol -For now hold amlodipine and lisinopril -will titrate metoprolol for heart rate and blood pressure Acute Kidney Injury -Likely secondary to Covid-19 Pneumonia and ATN -improving -will monitor closely -avoid nephrotoxic agents -ACEi-held -Triamterene/HCTZ on hold as well Code status: Full code Surrogate decision maker: Gi Richardson-partner Quality VTE Deep Vein Thrombosis/Pulmonary Embolism Present on Admission: No
[2020-11-20] MEDS: METOPROLOL TARTRATE 5 MG/5 ML INJ IV (16:09)
--- NOTE | 2020-11-20 16:14 | CM.DPC ---
DCP: continued: case discussed in Team Rounds. Dr. Whyte confirms that pt still remains not appropriate for any PT yet. Pt remains today on 15L high flow oxygen. Rosamaria, mixer helper consulted today and pt is now on a dysphagia diet due to his poor dentition. Ensure supplementation is ordered. DCP team will continue to follow.
[2020-11-20] MEDS: DIGOXIN 0.125 MG TABLET PO (17:24)
[2020-11-20] MEDS: MELATONIN 3 MG TABLET 9 MG PO (21:13)
[2020-11-20] MEDS: LORazepam 1 MG TABLET PO (21:14)
[2020-11-21] VITALS (26 sets, daily range): BP systolic 102–152; BP diastolic 63–93; PULSE 59–101; RESP 18–30; TEMP 31–37.2; O2SAT 84–98
[2020-11-21 04:32] LABS: Hematocrit 37.6 % (41-53); Hemoglobin 12.5 g/dL (13.5-17.5); Mean Corpuscular HGB Conc 33.2 % (30-36); Mean Corpuscular Hemoglobin 28.6 PG (26-34); Platelet Count 322 X10^3/uL (150-400); Red Blood Cell Count 4.37 X10^6/uL (4.5-5.9); Red Cell Distribution Width 12.8 % (11.6-14.8); White Blood Cell Count 17.6 X10^3/uL (4.5-11.0)
[2020-11-21 04:40] LABS: BUN Creatinine Ratio 29.8 (6-22); Blood Urea Nitrogen 31 mg/dL (9-20); Calcium 8.8 mg/dL (8.4-10.2); Carbon Dioxide 24 mmol/L (22-32); Chloride 104 mmol/L (98-107); Estimated Glomerular Filt Rate > 60.0 mL/min (>60); Glucose 101 mg/dL (80-110); HEMOLYSIS < 15 (0-50); Potassium 4.6 mmol/L (3.4-5.1); Sodium 131 mmol/L (137-145)
--- NOTE | 2020-11-21 05:00 | DI.RAD.S_ITS ---
PROCEDURE: XR CHEST 1V INDICATIONS: shortness of breath TECHNIQUE: One view of the chest was acquired. COMPARISON: [facility], CR, XR CHEST 1V, 11/15/2020, 12:06. [facility], CR, XR CHEST 1V, 11/13/2020, 14:55. FINDINGS: Surgical changes and devices: None. Lungs and pleura: Lungs are abnormal with a patchy interstitial prominence that has not significantly changed from the recent comparison plain films 11/15/20 and 11/13/20.. No pleural effusions or pneumothorax. Mediastinum: Mediastinal contours appear normal. Heart size is normal. Bones and chest wall: No suspicious bony lesions. Overlying soft tissues appear unremarkable. IMPRESSION: Patchy interstitial prominence, manifestation of atypical/viral pneumonia given absence of earlier plain films than 11/13/20 showing this pattern. Dictated by: Alvin Hebert M.D. on 11/21/2020 at 10:17 Approved by: Alvin Hebert M.D. on 11/21/2020 at 10:27
[2020-11-21] MEDS: METOPROLOL IR 25 MG TABLET 50 MG PO ×2 (07:46→20:34)
[2020-11-21] MEDS: dexAMETHasone 1 MG TABLET 6 MG PO (07:46)
[2020-11-21] MEDS: GABAPENTIN 300 MG CAPSULE PO ×2 (07:46→20:34)
[2020-11-21] MEDS: ENOXAPARIN 80 MG/0.8 ML SYRINGE 75 MG SUBCUT ×2 (07:47→20:34)
[2020-11-21] MEDS: SODIUM CHLORIDE 0.9% FLUSH 10 ML IV ×2 (07:48→20:35)
[2020-11-21] MEDS: BARICITINIB 2 MG TABLET 4 MG PO (07:48)
[2020-11-21] MEDS: guaiFENesin ER 600 MG TAB PO ×2 (09:29→20:34)
--- NOTE | 2020-11-21 11:20 | PM.PN.1 ---
Subjective Subjective Date Patient Seen: 11/21/20 Time Patient Seen: 08:00 Interval history: Today he feels about the same. He has just gotten up to bed and feels his heart racing and some short of breath with this activity. At rest he is comfortable. He is having a mildly productive cough more frequently now. Exam Vital Signs (past 8 hours): - 11/21/20 04:00 11/21/20 04:41 11/21/20 04:49 Temperature 97.8 F Pulse Rate 98 H Respiratory Rate 29 H Blood Pressure 117/79 Pulse Oximetry 96 97 96 11/21/20 08:00 11/21/20 08:19 Temperature 97.8 F Pulse Rate 101 H 97 H Respiratory Rate 21 24 Blood Pressure 113/78 Pulse Oximetry 92 96 Fraction of Inspired Oxygen 40 Oxygen Delivery Method High Flow Nasal Cannula Oxygen Flow Rate 10 Narrative Exam Narrative: GEN: alert and oriented x3, no apparent distress CV: tachycardic and irregular PULM: decreased breath sounds bilaterally with right sided crackles EXT: no edema Objective Labs Result Diagrams: 11/21/20 04:15 11/21/20 04:15 Labs: Laboratory Results - last 24 hr 11/21/20 11/21/20 04:15 04:15 WBC 17.6 H RBC 4.37 L Hgb 12.5 L Hct 37.6 L MCV 86.0 MCH 28.6 MCHC 33.2 RDW 12.8 Plt Count 322 Sodium 131 L Potassium 4.6 Chloride 104 Carbon Dioxide 24 BUN 31 H Creatinine 1.04 Estimated GFR > 60.0 BUN/Creatinine Ratio 29.8 H Glucose 101 Calcium 8.8 PFSH Medical History (Updated 11/14/20 @ 02:13 by CHLOE Kruse) Alcohol use disorder, moderate, in early remission History of pineal cyst Hypertension Tobacco abuse, in remission Surgical History (Updated 11/14/20 @ 02:13 by CHLOE Kruse) History of extraction of renal calculus Family History Mother Hypertension CKD (chronic kidney disease) Father Cancer Social History household members: none Smoking Status: Current every day smoker Assessment & Plan Assessment & Plan narrative: Mr. Shaffer is a 64 y/o male with acute hypoxic respiratory failure secondary to Covid-19 pneumonia. 1. Acute hypoxemic respiratory failure secondary to COVID pneumonia -continue dexamethasone/baricitinib -Will continue to taper oxygen as tolerated -Lovenox for DVT prophylaxis -Patient making slow progress -encourage proning -Patient with increasing liver function tests so Remdesivir was stopped -Continue baricitinib Atrial Fibrillation -continue metoprolol for rate control and use as needed Lopressor for heart rate -rate controlled currently -metoprolol changed to 50 mg q.6 hours for improved rate control, however his pressure dropped to 80s today, will decrease back to 25mg BID and give additional digoxin if becomes tachycardic -increased metoprolol back to 50mg BID due to continued tachycardia -patient was loaded on digoxin 11/16 and then again on 11/19 and continued on maintenanc dose -chadsvasc score of 2, discussed with patient and will start full dose lovenox for anticoagulation Hypertension -blood pressure low on lisinopril, amlodipine, and metoprolol -For now hold amlodipine and lisinopril -will titrate metoprolol for heart rate and blood pressure Acute Kidney Injury -Likely secondary to Covid-19 Pneumonia and ATN -improving -will monitor closely -avoid nephrotoxic agents -ACEi-held -Triamterene/HCTZ on hold as well Code status: Full code Surrogate decision maker: Gi Richardson-partner Quality VTE Deep Vein Thrombosis/Pulmonary Embolism Present on Admission: No
--- NOTE | 2020-11-21 11:53 | PC.NURSE ---
Pt doing well. Up to chair for breakfast and has remained in chair this AM. Pt reports increased sputum production. Remains tachypneic with RR 22-29 at rest but denies significant shortness of breath. Pt converted from Afib RVR BBB 110s to SR BBB occ PVCs rates 70s. Able to wean O2 to 5L high flow. SPO2 remaining greater than 97% at rest. Does have brief, intermittent desats to 88% with coughing but quickly recovers without intervention. Encouraged nutritional intake and set goal to eat at least 50% of meals which pt met during breakfast. S/o Gi updated via phone per pt request.
[2020-11-21] MEDS: DIGOXIN 0.125 MG TABLET PO (16:46)
[2020-11-21] MEDS: LORazepam 1 MG TABLET PO (20:35)
[2020-11-21] MEDS: MELATONIN 3 MG TABLET 9 MG PO (20:35)
[2020-11-22] VITALS (27 sets, daily range): BP systolic 115–160; BP diastolic 59–88; PULSE 55–81; RESP 13–33; TEMP 30.9–36.7; O2SAT 88–98
[2020-11-22 04:44] LABS: Hematocrit 38.4 % (41-53); Hemoglobin 12.8 g/dL (13.5-17.5); Mean Corpuscular HGB Conc 33.3 % (30-36); Mean Corpuscular Hemoglobin 28.6 PG (26-34); Mean Corpuscular Volume 85.9 fL (80-100); Platelet Count 352 X10^3/uL (150-400); Red Blood Cell Count 4.47 X10^6/uL (4.5-5.9); White Blood Cell Count 20.4 X10^3/uL (4.5-11.0)
[2020-11-22 04:50] LABS: BUN Creatinine Ratio 28.8 (6-22); Blood Urea Nitrogen 32 mg/dL (9-20); C-Reactive Protein Quant 3.5 mg/dL (<1.0); Calcium 9.2 mg/dL (8.4-10.2); Carbon Dioxide 23 mmol/L (22-32); Chloride 103 mmol/L (98-107); Estimated Glomerular Filt Rate > 60.0 mL/min (>60); Glucose 86 mg/dL (80-110); HEMOLYSIS < 15 (0-50); Lactate Dehydrogenase 1047 U/L (313-618); Potassium 4.6 mmol/L (3.4-5.1); Sodium 130 mmol/L (137-145)
[2020-11-22 04:52] LABS: D Dimer 2804 ng/mL (<230)
[2020-11-22 05:23] LABS: Ferritin 390 ng/mL (18-464)
[2020-11-22] MEDS: ENOXAPARIN 80 MG/0.8 ML SYRINGE 75 MG SUBCUT ×2 (08:22→20:48)
[2020-11-22] MEDS: dexAMETHasone 1 MG TABLET 6 MG PO (08:22)
[2020-11-22] MEDS: METOPROLOL IR 25 MG TABLET 50 MG PO ×2 (08:23→20:49)
[2020-11-22] MEDS: GABAPENTIN 300 MG CAPSULE PO ×2 (08:23→20:50)
[2020-11-22] MEDS: ACETAMINOPHEN 325 MG TABLET 650 MG PO (08:23)
[2020-11-22] MEDS: BARICITINIB 2 MG TABLET 4 MG PO (08:24)
[2020-11-22] MEDS: SODIUM CHLORIDE 0.9% FLUSH 10 ML IV ×2 (08:24→20:49)
[2020-11-22] MEDS: guaiFENesin ER 600 MG TAB PO ×2 (08:24→20:50)
--- NOTE | 2020-11-22 13:48 | P.PN_ITS ---
Subjective Subjective Date Patient Seen: 11/22/20 Time Patient Seen: 08:00 Interval history: He feels slightly improved today. He did have coughing episode and shortness of breath when getting out of bed. But overall he feels he is slowly improving. Exam Vital Signs (past 8 hours): - 11/22/20 06:00 11/22/20 08:00 11/22/20 08:14 Temperature 98.0 F Pulse Rate 58 L 77 Respiratory Rate 13 28 H Blood Pressure 127/59 L Pulse Oximetry 96 91 93 11/22/20 08:34 11/22/20 12:00 11/22/20 12:40 Temperature 97.7 F Pulse Rate 80 70 Respiratory Rate 33 H 19 Blood Pressure 160/61 H Pulse Oximetry 90 L 88 L 94 Fraction of Inspired Oxygen 40 Oxygen Delivery Method High Flow Nasal Cannula Oxygen Flow Rate 2 Narrative Exam Narrative: GEN: alert and oriented x3, no apparent distress CV: regular rate and rhythm with no murmurs PULM: decreased breath sounds bilaterally with right sided crackles EXT: no edema Objective Labs Result Diagrams: 11/22/20 04:25 11/22/20 04:25 Labs: Laboratory Results - last 24 hr 11/22/20 11/22/20 11/22/20 04:25 04:25 04:25 WBC 20.4 H RBC 4.47 L Hgb 12.8 L Hct 38.4 L MCV 85.9 MCH 28.6 MCHC 33.3 RDW 13.0 Plt Count 352 D-Dimer 2804 H Sodium 130 L Potassium 4.6 Chloride 103 Carbon Dioxide 23 BUN 32 H Creatinine 1.11 Estimated GFR > 60.0 BUN/Creatinine Ratio 28.8 H Glucose 86 Calcium 9.2 Ferritin 390 Lactate Dehydrogenase 1047 H C-Reactive Protein 3.5 H [facility] Medical History (Updated 11/14/20 @ 02:13 by CHLOE Kruse) Alcohol use disorder, moderate, in early remission History of pineal cyst Hypertension Tobacco abuse, in remission Surgical History (Updated 11/14/20 @ 02:13 by CHLOE Kruse) History of extraction of renal calculus Family History Mother Hypertension CKD (chronic kidney disease) Father Cancer Social History household members: none Smoking Status: Current every day smoker Assessment & Plan Assessment & Plan narrative: Mr. Shaffer is a 64 y/o male with acute hypoxic respiratory failure secondary to Covid-19 pneumonia. 1. Acute hypoxemic respiratory failure secondary to COVID pneumonia -continue dexamethasone/baricitinib -Will continue to taper oxygen as tolerated -Lovenox for DVT prophylaxis -Patient making slow progress -encourage proning -Patient with increasing liver function tests so Remdesivir was stopped -Continue baricitinib Atrial Fibrillation, now converted to sinus -continue metoprolol for rate control and use as needed Lopressor for heart rate -rate controlled currently -metoprolol changed to 50 mg q.6 hours for improved rate control, however his pressure dropped to 80s today, will decrease back to 25mg BID and give additional digoxin if becomes tachycardic -increased metoprolol back to 50mg BID due to continued tachycardia -patient was loaded on digoxin 11/16 and then again on 11/19 and continued on maintenanc dose -chadsvasc score of 2, discussed with patient and will start full dose lovenox for anticoagulation Hypertension -blood pressure low on lisinopril, amlodipine, and metoprolol -For now hold amlodipine and lisinopril -will titrate metoprolol for heart rate and blood pressure Acute Kidney Injury, resolved -Likely secondary to Covid-19 Pneumonia and ATN -improving -will monitor closely -avoid nephrotoxic agents -ACEi-held -Triamterene/HCTZ on hold as well Code status: Full code Surrogate decision maker: Gi Richardson-partner Quality VTE Deep Vein Thrombosis/Pulmonary Embolism Present on Admission: No
[2020-11-22] MEDS: DIGOXIN 0.125 MG TABLET PO (17:03)
[2020-11-22] MEDS: MELATONIN 3 MG TABLET 9 MG PO (20:49)
[2020-11-22] MEDS: LORazepam 1 MG TABLET PO (20:50)
[2020-11-23] VITALS (23 sets, daily range): BP systolic 118–138; BP diastolic 65–83; PULSE 56–88; RESP 16–29; TEMP 36.3–36.4; O2SAT 88–96
[2020-11-23] MEDS: BARICITINIB 2 MG TABLET 4 MG PO (08:34)
[2020-11-23] MEDS: dexAMETHasone 1 MG TABLET 6 MG PO (08:34)
[2020-11-23] MEDS: ACETAMINOPHEN 325 MG TABLET 650 MG PO (08:35)
[2020-11-23] MEDS: guaiFENesin ER 600 MG TAB PO ×2 (08:35→20:39)
[2020-11-23] MEDS: METOPROLOL IR 25 MG TABLET 50 MG PO ×2 (08:35→20:39)
[2020-11-23] MEDS: ENOXAPARIN 80 MG/0.8 ML SYRINGE 75 MG SUBCUT ×2 (08:35→20:39)
[2020-11-23] MEDS: GABAPENTIN 300 MG CAPSULE PO ×2 (08:35→20:39)
[2020-11-23] MEDS: SODIUM CHLORIDE 0.9% FLUSH 10 ML IV ×2 (08:36→20:41)
--- NOTE | 2020-11-23 09:20 | PT.IIE ---
Current Diagnoses COVID-19 (11/13/20) Medical History ([facility]14[facility]20 [facility] 02[facility] Alcohol use disorder, moderate, in early remission History of pineal cyst Hypertension Tobacco abuse, in remission Physical Therapy Inpatient Evaluation/Re-Eval M1 PT/OT-IP Prior Functional Status Start: 11/23/20 11:56 Freq: NEEDED Status: Active Protocol: Document 11/23/20 09:20 AB (Rec: 11/23/20 12:10 AB [email or web address]) Medical Review Prior Functional Status Medical History Reviewed Yes Communication able to make needs known Mobility and Gait pt stated that he is independent with all mobilities and ambulation without AD Social History Household Members none Living Arrangements House Number of Floors (Floors) One Floor Number of Stairs To Enter/Railing? 3 steps R rail ascending Home Environment Standard Height Toilet,Walk in Shower Home Equipment Shower Seat without Backrest M2 PT-IP Current Condition Start: 11/23/20 11:56 Freq: NEEDED Status: Active Protocol: Document 11/23/20 09:20 AB (Rec: 11/23/20 12:10 AB [email or web address]) Physical Therapy Current Condition Current Condition Evaluation Date 11/23/20 Treatment Diagnosis Covid PNA; difficulty in walking Onset Date 11/13/20 Precautions Other Precautions Covid precautions M3 PT-IP Subjective Start: 11/23/20 11:56 Freq: NEEDED Status: Active Protocol: Document 11/23/20 09:20 AB (Rec: 11/23/20 12:10 AB [email or web address]) Subjective Physical Therapy Visit Type Type Initial Evaluation Visit Start Time 09:20 Visit Stop Time 09:55 Total Visit Minutes 35 Number of GLOBE CHANGER Visits 0 Physical Therapy Visit Comments Patient Comments pt is agreeable to do PT Therapy Pain Assessment Pain Present Pain Present Denied Pain M4 PT-IP Mobility and Gait Start: 11/23/20 11:56 Freq: NEEDED Status: Active Protocol: Document 11/23/20 09:20 AB (Rec: 11/23/20 12:10 AB [email or web address]) PT-Bed Mobility Assessment Supine to Sit Supine to Sit Standby Assistance Sit to Supine Sit to Supine Standby Assistance PT-Transfer Assessment Sit to and From Stand Sit to and from Stand Standby Assistance,1 Person Assistance Equipment Transfer Assistive Device Gait Belt Orthotic/Prosthetic Devices or Brace: No Transfers Transfer Destination Bed,Chair Transfer Technique Stand Step Pivot Transfer Ability Level of Assist Standby Assistance,Contact Guard Assistance,1 Person Assistance,Use of Upper Extremities Comments Mobility Comments pt sitting on chair. agreeable to do PT. O2 sat with 3L/min of at rest: 94%. completed sit to stand SBA and ambulated in room ~ 12 ft using FWW initially SBA but needing CGA towards end of ambulation. pt sat on EOB. O2 sat checked and decreased at 75%. O2 increased to 6L/ min per nurse's instruction and O2 sat increased to ~ 90- 93% in ~ 15 sec. cued for deep breathing. pt rested. pt can be impulsive. pt completed sit<>supine SBA. completed sit to stand SBA and step transfer using FWW to chair SBA to CGA. O2 sat 89% after transfer. pt positioned on chair and rested. O2 sat increased to 93%. O2 decreased back to 3L and O2 sat at 93% at rest. call light and table placed within reach. informed nurse regarding pt's mobility and O2 sat. Gait Assessment Gait Gait Assistance Required: Standby Assistance,Contact Guard Assist,1 Person Assist Distance (Feet) 12 Able to Maintain Weight Bearing Status Yes During Gait Assistive Devices Assistive Device Gait Belt,Front Wheeled Walker Orthotic/Prosthetic Devices or Brace: No Gait Deviations General Gait Pattern Decreased Stride Length, Decreased Feet Clearance Factors Limiting Gait Function Factors Limiting Gait Function Decreased Activity Tolerance, Decreased Strength,Poor Balance,Poor Safety Awareness, Respiratory Distress Comments Gait Comments pls refer to mobility section for details PT-Balance Assessment Sitting Balance and Reactions Static Sitting Balance Ability Good Dynamic Sitting Balance Ability Good Standing Balance and Reactions Static Standing Balance Ability Fair Dynamic Standing Balance Ability Fair Device Used FWW M5 PT-IP Objective Assessments Start: 11/23/20 11:56 Freq: NEEDED Status: Active Protocol: Document 11/23/20 09:20 AB (Rec: 11/23/20 12:10 AB [email or web address]) Orientation Orientation/Cognition Level of Alertness Alert Orientation Name,Place,Situation Safety Awareness Decreased Safety Awareness Gross Range of Motion Lower Extremity ROM Assessment Within Functional Limits Strength Lower Extremity Strength Hip 4-/5 Knee 4-/5 Muscle Tone Muscle Tone WNL Yes M6 PT-IP Treatment Start: 11/23/20 11:56 Freq: NEEDED Status: Active Protocol: Document 11/23/20 09:20 AB (Rec: 11/23/20 12:10 AB [email or web address]) Physical Therapy Treatment Education Education Provided Safety M7 PT-IP Assessment and Plan Start: 11/23/20 11:56 Freq: NEEDED Status: Active Protocol: Document 11/23/20 09:20 AB (Rec: 11/23/20 12:10 AB [email or web address]) PT Summary Assessment and Plan Potential Rehabilitation Potential Fair Status of Condition at Evaluation Evolving Summary Impairments Pain,ROM,Strength,Balance, Coordination,Sensation,Bed Mobility,Transfers,Gait, Activity Tolerance Assessment Summary pt requiring SBA to CGA with mobility but has decrease activity tolerance affecting independence with O2 sat decreased to ~ 75% with 12 ft of ambulation using FWW at 3L/ min O2. pt lives alone and will require assistance at home. d/c plan depending on progress: SNF vs home with assist and services. Goals Bed Mobility Goal Independent Transfer Goal Independent,Front Wheeled Walker Gait Goal Independent,Front Wheel Walker Gait Distance 150 Other Goals up/down 3 steps R rail ascending SBA improve ambulation without AD 200 ft SBA Days to Meet Goals 10 Frequency of Treatment Frequency Of Treatment Once a Day Treatment Plan Physical Therapy Treatment Plan Bed Mobility Training,Transfer Training,Gait Training, Therapeutic Exercise,Balance Retraining,Discharge Planning, Hot or Cold Pack,Neuromuscular Re-ed,Coordination Retraining Precautions Other Precautions Covid precautions Recommendations To Nursing Amount of Assist Needed 1 Person Assist Discharge Recommendations PT Discharge Recommendations Home with Assistance,Home Health,SNF Rehab,Home vs SNF Transportation Needs at Discharge Private Vehicle
--- NOTE | 2020-11-23 10:34 | P.PN_ITS ---
Subjective Subjective Date Patient Seen: 11/23/20 Time Patient Seen: 08:00 Interval history: He remains short of breath, still coughing. Not speaking in full sentences. Looks very fatigued. Exam Vital Signs (past 8 hours): - 11/23/20 03:00 11/23/20 04:00 11/23/20 05:00 Temperature Pulse Rate 57 L 56 L 61 Respiratory Rate 20 22 24 Blood Pressure Pulse Oximetry 93 94 92 11/23/20 05:55 11/23/20 06:00 11/23/20 06:23 Temperature 97.6 F Pulse Rate 78 69 Respiratory Rate 25 H 27 H Blood Pressure 118/71 Pulse Oximetry 94 90 L 95 11/23/20 07:29 11/23/20 07:59 11/23/20 09:31 Temperature Pulse Rate 84 Respiratory Rate 18 Blood Pressure 124/65 Pulse Oximetry 91 93 91 Fraction of Inspired Oxygen 40 Oxygen Delivery Method Nasal Cannula Oxygen Flow Rate 3 Narrative Exam Narrative: EN: alert and oriented x3, no apparent distress CV: regular rate and rhythm with no murmurs PULM: decreased breath sounds bilaterally with right sided crackles, coughing frequently EXT: no edema Objective Labs Result Diagrams: 11/22/20 04:25 11/22/20 04:25 [facility] Medical History (Updated 11/14/20 @ 02:13 by CHLOE Kruse) Alcohol use disorder, moderate, in early remission History of pineal cyst Hypertension Tobacco abuse, in remission Surgical History (Updated 11/14/20 @ 02:13 by CHLOE Kruse) History of extraction of renal calculus Family History Mother Hypertension CKD (chronic kidney disease) Father Cancer Social History household members: none Smoking Status: Current every day smoker Assessment & Plan Assessment & Plan narrative: Mr. Shaffer is a 64 y/o male with acute hypoxic respiratory failure secondary to Covid-19 pneumonia. 1. Acute hypoxemic respiratory failure secondary to COVID pneumonia -continue dexamethasone/baricitinib -Will continue to taper oxygen as tolerated, initially on high flow, now on 3L oxygen -Lovenox for DVT prophylaxis -Patient making slow progress -encourage proning -Patient with increasing liver function tests so Remdesivir was stopped -Continue baricitinib Atrial Fibrillation, now converted to sinus -continue metoprolol for rate control and use as needed Lopressor for heart rate -rate controlled currently -metoprolol changed to 50 mg q.6 hours for improved rate control, however his pressure dropped to 80s today, will decrease back to 25mg BID and give additional digoxin if becomes tachycardic -increased metoprolol back to 50mg BID due to continued tachycardia -patient was loaded on digoxin 11/16 and then again on 11/19 and continued on maintenanc dose -chadsvasc score of 2, discussed with patient and will start full dose lovenox for anticoagulation Hypertension -blood pressure low on lisinopril, amlodipine, and metoprolol -For now hold amlodipine and lisinopril -will titrate metoprolol for heart rate and blood pressure Acute Kidney Injury, resolved -Likely secondary to Covid-19 Pneumonia and ATN -improving -will monitor closely -avoid nephrotoxic agents -ACEi-held -Triamterene/HCTZ on hold as well Code status: Full code Surrogate decision maker: Gi Richardson-partner Quality VTE Deep Vein Thrombosis/Pulmonary Embolism Present on Admission: No
--- NOTE | 2020-11-23 13:48 | OT.IP.EVAL ---
Current Diagnoses COVID-19 (11/13/20) Past Medical History (Last Updated 11/14/20 @ 02:13 by Starr Arellano [facility]) Alcohol use disorder, moderate, in early remission History of extraction of renal calculus History of pineal cyst Hypertension Tobacco abuse, in remission Surgical [facility] History of extraction of renal calculus Occupational Therapy Inpatient Evaluation/Re-Eval M1 PT/OT-IP Prior Functional Status Start: 11/23/20 11:56 Freq: NEEDED Status: Active Protocol: Document 11/23/20 13:51 [facility] (Rec: 11/23/20 14:03 [facility] [id number]) Medical Review Prior Functional Status Medical History Reviewed Yes Communication able to make needs known Mobility and Gait pt stated that he is independent with all mobilities and ambulation without AD Pt states felt that his medications that he has been taking prior to coming him makes him off balanced. Activities of Daily Living and IADL's Per pt was completely independent with all ADLs, IADL,s , drives and still works. Social History Household Members none Living Arrangements House Number of Floors (Floors) One Floor Number of Stairs To Enter/Railing? 3 steps R rail ascending Home Environment Standard Height Toilet,Walk in Shower Home Equipment Shower Seat without Backrest M2 OT-IP Current Condition Start: 11/23/20 13:51 Freq: Status: Active Protocol: Document 11/23/20 13:51 [facility] (Rec: 11/23/20 14:03 [facility] [id number]) Occupational Therapy Current Condition Current Condition Evaluation Date 11/23/20 Treatment Diagnosis Respiratory failure with hypoxia due to Covid PNA, decreased mobility Diagnosis Onset Date 11/13/20 M3 OT- IP Subjective and Pain Start: 11/23/20 13:51 Freq: Status: Active Protocol: Document 11/23/20 13:51 [facility] (Rec: 11/23/20 14:03 [facility] [id number]) OT- Subjective Occupational Therapy Visit Type Type Initial Evaluation Visit Start Time 13:28 Visit Stop Time 13:48 Total Visit Minutes 20 Occupational Therapy Visit Comments Patient Comments Pt agreed to get up for OT eval. Patient/Caregiver Goals TO go home. OT Pain Assessment Pain When Pain Assessed At Rest Pain Present Pain Present Denied Pain M4 OT- IP ADL's Start: 11/23/20 13:51 Freq: Status: Active Protocol: Document 11/23/20 13:51 [facility] (Rec: 11/23/20 14:03 [facility] [id number]) OT LUM-Gguu-Hjkfeum General Evaluation Self-Feeding Ability Independent OT ADL-Grooming Comments OT Grooming Comments Not performed, pt states did earler. OT ADL-Dressing General Eval Lower Body Dressing Ability Standby Assistance Comments OT Dressing Comments Pt able to danny/doff socks while crossing his legs over without any difficulty. OT ADL-Toileting Comments OT Toileting Comments Pt did not have to use the toilet. Pt states at night gets up 2-3 times to use the bathroom. OT ADL-Bathing Comments OT Bathing Comments Not performed. M5 OT- IP IADL's Start: 11/23/20 13:51 Freq: Status: Active Protocol: Document 11/23/20 13:51 [facility] (Rec: 11/23/20 14:03 [facility] [id number]) OT-Instrumental Activities of Daily Living Home Safety Awareness Awareness of Need for Assistance at Home Good Awareness Ability to Problem Solve Emergency Able to Problem Solve Situations Medication Management Medication Management No Deficits Identified Money Management Money Management No Deficits Identified Meal Preparation Meal Preparation Comments Due to decreased activity tolerance and use of O2 now would be best to have assist for IADL needs and also for O2 tubing management needs. Senior Network Systems Engineer Senior Network Systems Engineer Comments Due to decreased activity tolerance and use of O2 now would be best to have assist for IADL needs and also for O2 tubing management needs. M6 OT- IP Functional Cognition Start: 11/23/20 13:51 Freq: Status: Active Protocol: Document 11/23/20 13:51 [facility] (Rec: 11/23/20 14:03 [facility] [id number]) Cognitive Factors Limiting Selfcare Function Cognitive Ability Level of Alertness Alert Patient Orientation Name,Age,Birthday,Month,Date, Year,Day of Week,Place, Situation Attention Span Ability Capable of Focused Attention, Capable of Sustained Attention Ability to Follow Commands Able to Follow Multi-Step Commands Memory Description No Deficits Noted Problem Solving Ability Unable to Identify Errors, Needs Assist to Identify Solutions Cognitive Comments Cognitive Assessment Comments Pt appears intact for cognitive needs. OT- Vision and Hearing OT- Hearing Assessment OT- Hearing Assessment WFL OT- Vision Assessment Visual Acuity Glasses For Reading M7 OT- IP Mobility and Balance Start: 11/23/20 13:51 Freq: Status: Active Protocol: Document 11/23/20 13:51 [facility] (Rec: 11/23/20 14:03 [facility] [id number]) OT-Transfer Assessment Sit to and From Stand Sit to and from Stand Contact Guard Assistance,1 Person Assistance Transfers Transfer Ability Contact Guard Assistance,1 Person Assistance Technique Transfer Destination Chair Transfer Technique Stand Step Pivot Devices Transfer Assistive Devices Gait Belt,Front Wheeled Walker Comments Mobility Comments CGA for balance with FWW pt tends to lean to the left, pt needing assist to help manage O2 tubing. OT- Balance Assessment Sitting Balance and Reactions Static Sitting Balance Ability Normal Dynamic Sitting Balance Ability Good Standing Balance and Reactions Static Standing Balance Ability Fair M8 OT- IP Objective Assessments Start: 11/23/20 13:51 Freq: Status: Active Protocol: Document 11/23/20 13:51 [facility] (Rec: 11/23/20 14:03 [facility] [id number]) OT Gross Range of Motion Upper Extremity Range of Motion Assessment Within Functional Limits OT Strength Upper Extremity Strength Assessment Within Functional Limits OT-Muscle Tone Assessment Muscle Tone WNL Yes M9 OT- IP Assessment and Plan Start: 11/23/20 13:51 Freq: Status: Active Protocol: Document 11/23/20 13:51 [facility] (Rec: 11/23/20 14:03 [facility] [id number]) OT Summary Assessment and Plan Potential Rehabilitation Potential Good Analytic Complexity at Evaluation Moderate Summary OT Impairments Balance,Functional Mobility, Grooming,Dressing,Toileting, Bathing,Toilet Transfers, Shower Transfers,Activity Tolerance Progress Towards Goals Slow Progress due to Medical Issues,Slow Progress due to Activity Tolerance Assessment Summary Pt MOD complexity and main barriers are steps and decreased activity tolerance due to Covid PNa. Pt lives alone and able to have some assist but not all the time. Pending progress and level of assist at home may need short skilled rehab versus home with assist. Goals Grooming Goal Independent Dressing Goal Independent Toileting Goal Independent Bathing Goal Independent Toilet Transfer Goal Independent Shower Transfer Goal Independent Patient/Caregiver Education Goal Demonstrate Energy Conservation and Pacing Days to Meet Goals 15 Frequency of Treatment Frequency Of Treatment Once a Day Treatment Plan OT Treatment Plan ADL Training,Functional Mobility,Patient/Family Education,Discharge Planning Other Treatment Recommendations and Next Stand for grooming needs. Treatment Focus Discharge Recommendations OT Discharge Recommendations Home with 24/ Assist Available,Home Health,SNF Rehab,Home vs SNF Home Equipment Needs FWW Transportation Needs at Discharge Private Vehicle,Wheelchair/ Cabulance
--- NOTE | 2020-11-23 14:31 | PC.NURSE ---
PT REPORTS NO PAIN AND IS TOLERATING 2 L NC OF O2 WELL - 93% AT PRESENT COUGH IS SOMEWHAT PRODUCTIVE AND PT ATTEMPTS TO STIFLE IT AT TIMES- ENCOURAGED TO COUGH - PLAN IS TO GO HOME TOMORROW HOPEFULLY
[2020-11-23] MEDS: DIGOXIN 0.125 MG TABLET PO (16:43)
--- NOTE | 2020-11-23 18:06 | PC.NURSE ---
Pt changed from hiflo nasal cannula to regular O2 cannula 2L, O2 sats 93%. Encouraged independence to BR with standby assist.
[2020-11-23] MEDS: MELATONIN 3 MG TABLET 9 MG PO (20:39)
[2020-11-23] MEDS: LORazepam 1 MG TABLET PO (20:39)
--- NOTE | 2020-11-23 22:03 | PC.NURSE ---
end of shift note: Pt up to the BR independently, maintains O2Sats >90%.
[2020-11-24] VITALS (7 sets, daily range): BP systolic 124–132; BP diastolic 71–73; PULSE 66–69; RESP 16–22; TEMP 36.6–36.7; O2SAT 88–95
[2020-11-24 05:45] LABS: Hematocrit 36.8 % (41-53); Hemoglobin 12.5 g/dL (13.5-17.5); Mean Corpuscular HGB Conc 33.9 % (30-36); Mean Corpuscular Hemoglobin 29.4 PG (26-34); Mean Corpuscular Volume 86.7 fL (80-100); Platelet Count 419 X10^3/uL (150-400); Red Blood Cell Count 4.24 X10^6/uL (4.5-5.9); Red Cell Distribution Width 13.1 % (11.6-14.8); White Blood Cell Count 22.5 X10^3/uL (4.5-11.0)
[2020-11-24 06:04] LABS: BUN Creatinine Ratio 18.6 (6-22); Blood Urea Nitrogen 22 mg/dL (9-20); Carbon Dioxide 24 mmol/L (22-32); Chloride 105 mmol/L (98-107); Estimated Glomerular Filt Rate > 60.0 mL/min (>60); Glucose 87 mg/dL (80-110); HEMOLYSIS < 15 (0-50); Potassium 4.5 mmol/L (3.4-5.1); Sodium 133 mmol/L (137-145)
[2020-11-24] MEDS: GABAPENTIN 300 MG CAPSULE PO (08:27)
[2020-11-24] MEDS: BARICITINIB 2 MG TABLET 4 MG PO (08:27)
[2020-11-24] MEDS: ENOXAPARIN 80 MG/0.8 ML SYRINGE 75 MG SUBCUT (08:27)
[2020-11-24] MEDS: METOPROLOL IR 25 MG TABLET 50 MG PO (08:27)
[2020-11-24] MEDS: SODIUM CHLORIDE 0.9% FLUSH 10 ML IV (08:28)
--- NOTE | 2020-11-24 08:48 | DI.CT.S_ITS ---
PROCEDURE: CT CHEST WO CON INDICATIONS: COVID pneumonia. Please evaluate for focal consolidation. TECHNIQUE: Noncontrast 5 mm thick sections acquired from the pulmonary apices to the posterior costophrenic angles. 1 mm lung window, 5 mm thick coronal and sagittal and 7 mm axial MIP reformats were then acquired. For radiation dose reduction, the following was used: automated exposure control, adjustment of mA and/or kV according to patient size. COMPARISON: [facility], CR, XR CHEST 1V, 11/21/2020, 4:59. FINDINGS: Image quality: Excellent. Lungs and pleura: Bilateral interstitial type infiltrates can be seen, without a confluent area of focal consolidation. No pleural effusions or pneumothorax. Central and peripheral airways are patent and normal in caliber. Mediastinum: Heart size is normal. No pericardial effusion. No mediastinal adenopathy by size criteria. Borderline prominent mediastinal lymph nodes are seen. Calcified mediastinal lymph nodes are seen. [id number] coronary artery calcification can be seen. Thoracic aorta and central pulmonary arteries are normal in size. Esophagus is normal in caliber. There is a small hiatal hernia. Bones and chest wall: No suspicious bony lesions. No acute vertebral body compression fractures. Accentuated thoracic kyphosis is seen, with numerous levels of anterior wedge deformity. Relatively prominent degenerative changes are seen, which are worst inferiorly. No axillary or supraclavicular adenopathy by size criteria. Thyroid gland demonstrates no significant noncontrast abnormality. Abdomen: Calcified splenic granulomas can be seen. Along the superior aspect of the left kidney, there is a 9 cm simple appearing cyst seen. IMPRESSION: Patchy bilateral interstitial infiltrates are seen, which are consistent with the given clinical history of COVID pneumonia. No superimposed focal dense consolidation can be seen. Borderline prominent mediastinal lymph nodes are seen, which are presumed to be reactive. Incidental note is made of: Small hiatal hernia Accentuated thoracic kyphosis, with numerous levels of anterior wedge deformity Prior granulomatous exposure. Prominent simple appearing left renal cyst Dictated by: Jem Palmer M.D. on 11/24/2020 at 8:39 Approved by: Jem Palmer M.D. on 11/24/2020 at 8:41
--- NOTE | 2020-11-24 11:54 | PT.IPTN ---
Current Diagnoses COVID-19 (11/13/20) Physical Therapy Treatment Note M2 PT-IP Current Condition Start: 11/23/20 11:56 Freq: NEEDED Status: Active Protocol: Document 11/23/20 09:20 AB (Rec: 11/23/20 12:10 AB [id number]) Physical Therapy Current Condition Current Condition Evaluation Date 11/23/20 Treatment Diagnosis Covid PNA; difficulty in walking Onset Date 11/13/20 Precautions Other Precautions Covid precautions M3 PT-IP Subjective Start: 11/23/20 11:56 Freq: NEEDED Status: Active Protocol: Document 11/24/20 11:36 CLB (Rec: 11/24/20 12:46 CLB [id number]) Subjective Physical Therapy Visit Type Type Treatment Note Visit Start Time 11:36 Visit Stop Time 11:54 Total Visit Minutes 18 Number of RN PROCEDURE Visits 1 Physical Therapy Visit Comments Patient Comments pt is agreeable to do PT, pt states he will have Gi get a FWW for home use. Therapy Pain Assessment Pain Present Pain Present Denied Pain M4 PT-IP Mobility and Gait Start: 11/23/20 11:56 Freq: NEEDED Status: Active Protocol: Document 11/24/20 11:36 CLB (Rec: 11/24/20 12:46 CLB [id number]) PT-Transfer Assessment Sit to and From Stand Sit to and from Stand Standby Assistance,1 Person Assistance Equipment Transfer Assistive Device Gait Belt Orthotic/Prosthetic Devices or Brace: No Transfers Transfer Destination Chair Transfer Ability Level of Assist Standby Assistance,1 Person Assistance,Use of Upper Extremities Comments Mobility Comments Pt in chair upon arrival, pt O2 sat at rest 96% on 2L. Pt stood SBA and ambulated ~20ft w/FWW/SBA and assist with O2 lines. Pt shakey at start of gait then stopped shaking. Pt stood for O2 check and O2 on 2L 89% and with PLB increased to 92% within a few seconds. Pt then ambulated another 20ft then sat in chair, Pt fatigued and SOB with O2 on 2L 89% with increase to steady 92% after ~2 minutes and continued to increase with rest to 96%. Pt coughed throughout treat. Pt left in chair with all needs within reach, RN informed of pt O2 needs during tx. Gait Assessment Gait Gait Assistance Required: Standby Assistance,1 Person Assist Distance (Feet) 20 Able to Maintain Weight Bearing Status Yes During Gait Assistive Devices Assistive Device Gait Belt,Front Wheeled Walker Orthotic/Prosthetic Devices or Brace: No Gait Deviations General Gait Pattern Decreased Stride Length, Decreased Feet Clearance Factors Limiting Gait Function Factors Limiting Gait Function Decreased Activity Tolerance, Decreased Strength,Poor Balance,Poor Safety Awareness, Respiratory Distress Comments Gait Comments pls refer to mobility section for details PT-Balance Assessment Sitting Balance and Reactions Static Sitting Balance Ability Good Dynamic Sitting Balance Ability Good Standing Balance and Reactions Static Standing Balance Ability Fair Dynamic Standing Balance Ability Fair Device Used FWW M5 PT-IP Objective Assessments Start: 11/23/20 11:56 Freq: NEEDED Status: Active Protocol: Document 11/23/20 09:20 AB (Rec: 11/23/20 12:10 AB [id number]) Orientation Orientation/Cognition Level of Alertness Alert Orientation Name,Place,Situation Safety Awareness Decreased Safety Awareness Gross Range of Motion Lower Extremity ROM Assessment Within Functional Limits Strength Lower Extremity Strength Hip 4-/5 Knee 4-/5 Muscle Tone Muscle Tone WNL Yes M6 PT-IP Treatment Start: 11/23/20 11:56 Freq: NEEDED Status: Active Protocol: Document 11/23/20 09:20 AB (Rec: 11/23/20 12:10 AB [id number]) Physical Therapy Treatment Education Education Provided Safety M7 PT-IP Assessment and Plan Start: 11/23/20 11:56 Freq: NEEDED Status: Active Protocol: Document 11/24/20 11:36 CLB (Rec: 11/24/20 12:46 CLB [id number]) PT Summary Assessment and Plan Potential Rehabilitation Potential Fair Status of Condition at Evaluation Evolving Summary Impairments Pain,ROM,Strength,Balance, Coordination,Sensation,Bed Mobility,Transfers,Gait, Activity Tolerance Assessment Summary Pt O2 on 2L remained above 89% throughout tx with 20ft ambulation x2 and standing rest break between. Pt with SOB and coughing during gait. Pt recovered quickly after first 20ft but took ~2 minutes to recover after second bout of gait. Pt states he will have his SO iG and his ex- to assist him at home. Pt would benefit from PT to increase strength for increased activity tolerance. Goals Bed Mobility Goal Independent Transfer Goal Independent,Front Wheeled Walker Gait Goal Independent,Front Wheel Walker Gait Distance 150 Other Goals up/down 3 steps R rail ascending SBA improve ambulation without AD 200 ft SBA Days to Meet Goals 10 Frequency of Treatment Frequency Of Treatment Once a Day Treatment Plan Physical Therapy Treatment Plan Bed Mobility Training,Transfer Training,Gait Training, Therapeutic Exercise,Balance Retraining,Discharge Planning, Hot or Cold Pack,Neuromuscular Re-ed,Coordination Retraining Precautions Other Precautions Covid precautions Recommendations To Nursing Amount of Assist Needed 1 Person Assist Discharge Recommendations PT Discharge Recommendations Home with Assistance,Home Health Transportation Needs at Discharge Private Vehicle
--- NOTE | 2020-11-24 12:36 | CM.DPC ---
Addendum entered by Violet Ambrose LPN 11/24/20 13:09: Pt says he will be staying at his [address] address in [place] and that his girlfriend Gi Richardson as well as his exwife will be staying with him to help as he recovers. Pt has recommended a FWW at d/c, order for same is obtained and given to PT dept to dispense. Pt says he does not expect to need it for long but he can see how it will be useful until he gets his strength back. RT is setting pt up for home supplemental oxygen. Pt confirms that Gi will be the one who will pick him up at d/c. He stated at 1215 that he was comfortable with the plan for home today. IMM # 2 present to be given to pt when RN is finalizing the d/c process secondary to the continued COVID + precautions. Original Note: DCP: continued: Pt now with d/c orders to home. Discussed same with Dr. Hemphill. RT will be seeing pt for likely a d/c home on supplemental oxygen. Called into room: [id number] and spoke at length with pt re his d/c plan.
--- NOTE | 2020-11-24 13:32 | OT.IPNOTE ---
Able to go in to dispense pt FWW. Pt had no further OT needs at this time and to be going with assist. NO charge.
--- NOTE | 2020-11-24 14:14 | P.DS_ITS ---
History of Present Illness History of Present Illness Chief complaint: SOB Narrative: Patient is a 70-year-old male Julián Shaffer who presented to the ED for shortness of breath. Patient approximately 10 days ago started having symptoms to include headache, cough, and tested positive for COVID-19. He is unvaccinated. Patient denies any respiratory history, or illnesses he does note that he smoked for approximately 35 years and quit 1 week ago. Patient also reports that he has a history of significant alcohol abuse x 30 years, quit 5 months ago, has not had a drink since. Patient denied any concerns regarding with drawl from alcohol or tobacco. Patient's symptoms of headache, cough, SOB at rest, chest pain with coughing have been progressively worsened over the past 10 days. Patient denies currently abdominal pain, nausea, vomiting, fever, body aches, chills, rashes, exposure to positive COVID, unusual or new extremity swelling, difficulty with urination, hematuria, melena, or recent illnesses. Patient does report that he had 1 episode of diarrhea earlier today, but has had no further issues. Patient is feeling slightly anxious at the time of admit. He reports that he has not received pneumonia vaccine, shingles vaccine, or 2020 flu vaccine but does normally take the flu vaccine. Patient is extremely short of breath with significant work of breathing with significant shaking during a dmit interview, patient is unable to complete sentences, only able verbalize 1-2 words at a time. Patient denies heart failure history, COPD, or any further respiratory or cardiac health isues. He reports his last cardiac workup with an echo/stress test fall 2019 at [facility] in [facility] was WNL I have a very healthy heart. Patient only reports a history of high blood pressure, diabetes type 2 controlled by diet, and degenerative disc disease. Patient's vitals upon admit slightly afebrile temp 100.6?, BP 140/63, HR 83, slightly tachypneic RR 24, O2 saturation 90% on 50 L high-flow. Patient's CBC was predominantly within normal limits with the exception of platelets 147, ferritin 518, and neutrophils# 8.100. Patient's chemistries demonstrated chloride 109, BUN 39, HC03 19, with a creatinine of 1.63, GFR 42.2, glucose 123, patient's lactate Dehy 1600, lactate negative, control creatinine kinase 555, troponin slight bump at 0.013, CRP 8.3, procalcitonin 0.73, dimer of 435 (age adjusted 690, VTE unlikely). ABGs pH normal at 7.45, pCO2 alkalotic 24.6, PO2 64, HC03 acidotic 17, TCO2 18, O2 saturation 94%, base excess-7.0, FiO2 55. EKG showed sinus tachycardia rate 105, right bundle-branch block without ST or T- wave changes. Patient's chest x-ray demonstrated patchy bilateral infiltrates consistent with viral pneumonia. Patient admitted with acute respiratory failure with hypoxia due to COVID pneumonia. Discharge Providers Provider Date of admission: 11/13/20 15:00 Discharge Date: 11/24/20 Primary care physician: Jannet Townsend DO Consults: 11/13/20 19:49 Consult to Respiratory Therapy Evaluate & Treat Comment: Covid Pneumonia Physician Instructions: Evaluate and treat 11/23/20 08:10 Consult to Physical Therapy Evaluate & Treat Comment: Physician Instructions: Evaluate and Treat 11/23/20 10:46 Consult to Occupational Therapy Evaluate & Treat Comment: Physician Instructions: Evaluate and treat 11/24/20 12:18 Consult to Discharge Planning Routine Comment: per PT recommendation: FWW at d/c Discharge provider: Daniel Hemphill MD Summary Hospital Course Discharge Diagnosis: 1. COVID pneumonia 2. Acute hypoxemic respiratory failure 3. Acute atrial fibrillation 4. Acute kidney injury Patient was admitted due to severe acute hypoxic respiratory failure associated with COVID-19 pneumonia. He was treated with combination of dexamethasone and baracitnib as well as remdesivir. He had complication of acute atrial fibrillation which was controlled with metoprolol and digoxin and converted on his own back to sinus rhythm about 2 days ago. He was also on full-dose Lovenox anticoagulation. Patient has make gradual progress though still requiring 2 L O2 at rest and 4 L O2 with exertion. He still has a cough which is improving. In terms of functional status, he is quite weak from baseline. He will be discharged on home O2. Did develop significant leukocytosis which is thought secondary to dexamethasone. His CT KUB on day of discharge does not show any focal consolidation. On exam, he is alert and fully responsive. Lungs are clear to auscultation. Heart sounds are regular. Legs without edema. Status at Discharge Cognitive/behavioral status at discharge: oriented Functional status at discharge: uses cane/walker Overall status at discharge: patient is not back to baseline Time Spent with Patient Time spent: Greater than 30 minutes Exam Vital Signs (past 8 hours): - 11/24/20 07:24 11/24/20 07:25 11/24/20 08:30 Temperature 98.1 F Pulse Rate 66 Respiratory Rate 22 Blood Pressure 124/73 Pulse Oximetry 95 95 88 L 11/24/20 13:00 Temperature Pulse Rate Respiratory Rate Blood Pressure Pulse Oximetry 94 Fraction of Inspired Oxygen 40 Oxygen Delivery Method Nasal Cannula Oxygen Flow Rate 2 Objective Labs Result Diagrams: 11/24/20 04:55 11/24/20 04:55 Labs: Laboratory Results - last 24 hr 11/24/20 11/24/20 04:55 04:55 WBC 22.5 H RBC 4.24 L Hgb 12.5 L Hct 36.8 L MCV 86.7 MCH 29.4 MCHC 33.9 RDW 13.1 Plt Count 419 H Sodium 133 L Potassium 4.5 Chloride 105 Carbon Dioxide 24 BUN 22 H Creatinine 1.18 Estimated GFR > 60.0 BUN/Creatinine Ratio 18.6 Glucose 87 Calcium 9.0 [facility] Medical History (Updated 11/14/20 @ 02:13 by CHLOE Kruse) Alcohol use disorder, moderate, in early remission History of pineal cyst Hypertension Tobacco abuse, in remission Surgical History (Updated 11/14/20 @ 02:13 by CHLOE Kruse) History of extraction of renal calculus Family History Mother Hypertension CKD (chronic kidney disease) Father Cancer Social History household members: none Smoking Status: Current every day smoker Discharge Plan Discharge Plan Patient Disposition: Home Provider Discharge Comment: Lovenox prescribed for 2 weeks to prevent blood clots. Monitor blood pressure and heart rate at home. I recommend you get COVID vaccine in 2 months. Discharge orders & Medications Prescriptions: New metoprolol tartrate 50 mg tablet 50 mg PO BID Qty: 60 RF: 0 enoxaparin [Lovenox] 40 mg/0.4 mL syringe 40 mg SUBCUT DAILY 14 Days Qty: 5.6 RF: 0 Continued gabapentin 300 mg capsule 300 mg PO BID RF: 0 Discontinued lisinopril 20 mg tablet 20 mg PO BID RF: 0 amlodipine 10 mg tablet 10 mg PO DAILY RF: 0 triamterene-hydrochlorothiazid 37.5-25 mg tablet 1 tab PO DAILY RF: 0 metoprolol tartrate 25 mg tablet 25 mg PO BID RF: 0 Follow up/Referrals: Jannet Townsend DO [Primary Care Provider] - 2 Weeks Diet/Activity/Treatments Diet: Regular Visit Report/Discharge Packet Instructions: Metoprolol, How to Give a Subcutaneous Injection With a Pre- filled Syringe, DI for COVID-19 (Suspected or Confirmed ), About the COVID-19 Vaccine Discharge Data Primary Care Provider: Jannet Townsend Quality VTE Deep Vein Thrombosis/Pulmonary Embolism Present on Admission: No
--- NOTE | 2020-11-24 14:28 | PC.NURSE ---
Pt is to dc home with s/o Gi and home O2. Pt agreeable to plan. Provided education regarding home O2, COVID19, vaccination recs, medication regimen, when to seek emergency medical treatment. Educated pt on how to administer lovenox injection. He provided return demo and teach back. Pt dressed himself with minimal assistance. All belongings gathered and given to s/o Gi. Pt left at 1432 via w/c with O2 and fww. Escorted to POV by MATERIAL CONTROL CLERK in no distress.
== END 2020-11-24 14:32 | disposition home or self-care (01) | DRG 177 ==
LOC: ED 14:43 → AC 15:00 → ICU 11-14 07:06
PROVIDERS: Internal Medicine; Nurse Practitioner Family; Admitting Provider Internal Medicine; Emergency Provider Emergency Medicine; PCP Family Medicine; Referring Provider Emergency Medicine; Visit Provider Internal Medicine
DX: U07.1 COVID-19 (principal); J12.82 Pneumonia due to coronavirus disease 2019; J96.01 Acute respiratory failure with hypoxia; N17.0 Acute kidney failure with tubular necrosis; R74.01 Elevation of levels of liver transaminase levels; I48.91 Unspecified atrial fibrillation; I10 Essential (primary) hypertension; F17.200 Nicotine dependence, unspecified, uncomplicated
CPT/HCPCS: 36415; 36600; 71045; 71250; 80048; 80053; 82550; 82553; 82728; 82805; 82962; 83605; 83615; 83690; 83735; 84145; 84484; 85025; 85027; 85379; 85610; 86140; 87040; 87797; 93005; 94660; 94760; 94762; 96361; 96365; 96366; 96368; 96375; 97162; 97166; 97530; 99284; A9270; J1100; J1160; J1644; J1650

== ENCOUNTER → 2021-04-26 17:28 | Outpatient (CLI) | payer OTHER, SELFPAY ==
[2021-02-20 14:26] VITALS: PULSE 57; RESP 20; O2SAT 92; BMI 28.0
--- NOTE | 2021-04-26 17:30 | DI.MRI.S_ITS ---
PROCEDURE: MR LUMBAR SPINE WO CON INDICATIONS: Scoliosis chronic progressive back pain TECHNIQUE: Noncontrast sagittal T1 spin echo and T2 fast echo, sagittal STIR, axial T1 and T2 fast spin echo through the lumbar spine. In cases with scoliosis, additional coronal T2 fast spin echo may be performed. COMPARISON: None. FINDINGS: Image quality: Excellent. Alignment and Curvature: There is trace L5-S1 anterolisthesis secondary to facet hypertrophy. Bone Marrow: Mixed Modic type 1 and type 2 reactive endplate changes noted adjacent to the L2-L3, L3-L4, L4-L5 and L5-S1 discs. Modic type 2 reactive endplate changes noted adjacent the L1-L2 disc. No acute vertebral body compression fractures. Spinal Cord: Conus medullaris terminates at the L1 level. Visualized cord demonstrates normal signal and size. Paraspinous Soft Tissues: No paravertebral masses. T12-L1: Loss of disc signal and height. Mild to moderate diffuse disc bulge. Mild bilateral facet hypertrophy. Moderate narrowing of the central canal. Mild bilateral neural foraminal narrowing. No neural compression.. L1-L2: Loss of disc signal and height. Mild to moderate diffuse disc bulge. Mild bilateral facet hypertrophy. Moderate to severe narrowing of the central canal. Moderate bilateral neural foraminal narrowing. No neural compression. L2-L3: Loss of disc signal and height. Moderate, diffuse disc bulge. Left central disc protrusion. [id number]-vhhtuhet bilateral facet hypertrophy. Moderate ligamentum flavum hypertrophy. Severe narrowing of the central canal with compression of the nerve roots of the cauda equina. Moderate bilateral neural foraminal narrowing. L3-L4: Loss of disc signal and height. Mild, diffuse disc bulge. Mild bilateral facet hypertrophy. Moderate ligamentum flavum hypertrophy. Severe narrowing of the central canal with compression of the nerve roots of the cauda equina. Moderate right and severe left neural foraminal narrowing with compression of the exiting left L3 nerve root. L4-L5: Loss of disc signal and height. Moderate, diffuse disc bulge. Mild bilateral facet hypertrophy. Severe ligamentum flavum hypertrophy. Severe narrowing of the central canal with compression of the nerve roots of the cauda equina. Severe right and moderate left neural foraminal narrowing with compression of the exiting right L4 nerve root. L5-S1: Loss of disc signal and height. Mild, diffuse disc bulge. Severe bilateral facet hypertrophy. Moderate ligamentum flavum hypertrophy. Severe narrowing of the central canal with compression of the nerve roots of the cauda equina. Severe bilateral neural foraminal narrowing with compression of the exiting L5 nerve roots. IMPRESSION: 1. Multilevel degenerative disc disease. 2. . Multilevel facet arthropathy. 3. Severe L2-L3, L3-L4, L4-L5 and L5-S1 central canal narrowing with compression of the nerve roots of the cauda equina. Moderate to severe L1-L2 central canal narrowing. 4. Severe bilateral L5-S1 neural foraminal narrowing with compression of the exiting bilateral L5 nerve roots. Severe left L3-L4 neural foraminal narrowing with compression exiting left L3 nerve root. Severe right L4-L5 neural foraminal narrowing with compression exiting right L4 nerve root. Dictated by: Unique Hernandez MD, PhD on 04/29/2021 at 12:46 Approved by: Unique Hernandez MD, PhD on 04/29/2021 at 12:52
== END ==
PROVIDERS: PCP Family Medicine; Referring Provider Physical Medicine & Rehabilitation; Visit Provider Physical Medicine & Rehabilitation
DX: M41.9 Scoliosis, unspecified (principal); M51.16 Intervertebral disc disorders with radiculopathy, lumbar region; M51.17 Intervertebral disc disorders with radiculopathy, lumbosacral region; M47.26 Other spondylosis with radiculopathy, lumbar region; M47.27 Other spondylosis with radiculopathy, lumbosacral region; M48.061 Spinal stenosis, lumbar region without neurogenic claudication; M48.07 Spinal stenosis, lumbosacral region
CPT/HCPCS: 72148

== ENCOUNTER → 2021-06-25 10:42 | Outpatient (CLI) | payer OTHER, SELFPAY ==
[2021-02-20 14:26] VITALS: PULSE 57; RESP 20; O2SAT 92; BMI 28.0
[2021-06-25 11:59] LABS: COVID19 -Nasal RAPID Negative (Negative)
== END ==
PROVIDERS: PCP Family Medicine; Visit Provider Physical Medicine & Rehabilitation
DX: Z20.822 Contact with and (suspected) exposure to COVID-19 (principal)
CPT/HCPCS: 87635; C9803

== ENCOUNTER 2021-06-27 12:22 | Outpatient (CLI) | payer OTHER, SELFPAY ==
[2021-02-20 14:26] VITALS: PULSE 57; RESP 20; O2SAT 92; BMI 28.0
[2021-06-27] VITALS (9 sets, daily range): BP systolic 136–180; BP diastolic 69–99; PULSE 54–78; RESP 15–21; TEMP 37; O2SAT 97–100
--- NOTE | 2021-06-27 12:24 | DI.RAD.S_ITS ---
PROCEDURE: PAIN L INTERLAMINAR/CAUDAL INJ INDICATIONS: SPONDYLOSIS COMPARISON: [facility], MR, MR LUMBAR SPINE WO CON, 04/26/2021, 17:39. FINDINGS: Fluoroscopic spot filming was performed to verify placement of a spinal needle at the L4-L5 level, as labeled on the films. Appropriate location of the needle tip was confirmed by injection of iodinated contrast. IMPRESSION: Intraprocedural examination within normal limits. Dictated by: Jem Palmer M.D. on 06/27/2021 at 13:39 Approved by: Jem Palmer M.D. on 06/27/2021 at 13:39
[2021-06-27] MEDS: MIDAZOLAM 2 MG/2 ML VIAL IV (13:50)
[2021-06-27] MEDS: IOPAMIDOL 15 ML VIAL 3 ML INJ (13:54)
[2021-06-27] MEDS: BUPIVACAINE 0.25% (PF) VIAL 2 ML INJ (13:54)
[2021-06-27] MEDS: BETAMETHASONE 30 MG/5 ML MDV 6 MG INJ (13:55)
[2021-06-27] MEDS: DEXAMETHASONE 10 MG/ML VIAL 20 MG INJ (13:55)
--- NOTE | 2021-06-27 14:06 | P.PCN_ITS ---
Date/Time/Diagnoses Date of procedure: 06/27/21 Time of procedure: 14:06 Pre-procedure diagnosis: 1. HNP WITH RADICULAR FEATURES, 2. MULTILEVEL CENTRAL STENOSIS, Post-procedure diagnosis: same Procedure Notes Procedure: 1. FLUOROSCOPICALLY GUIDED CONTRAST CONTROLLED INTERLAMINAR EPIDURAL STEROID INJECTION -L4/5 Indications: Julián is referred by Dr. Townsend for treatment of Bilateral Foraminal Stenosis R>L LE symptoms. Physician: Rajesh Velazquez Total Fluoroscopy time (seconds): 12 Total sedation minutes: 10 Complications: none Procedure in detail & Post-procedure care: FINDINGS Multilevel Central Spinal Stenosis with Nerve Root Compression DESCRIPTION OF PROCEDURE Fluoroscopically guided, contrast-controlled L4/5 translaminar epidural steroid injection. Following review of allergy and review of potential side effects and complications, including, but not necessarily limited to, infection, allergic reaction, local tissue breakdown, temporary as well as permanent nerve injury, paralysis, stroke and possible , the patient indicated that the patient understood and agreed to proceed. An informed consent document was signed by the patient, witnessed by a nurse, and placed in the patient's chart. Additionally, other treatment options including modalities, medications, and physical therapy were reviewed with the patient. After review of previous anaesthesic history and IV conscious sedation the patient was deemed safe to proceed with today?s procedure with IV conscious sedation as ASA class II designation. Safety time-out was performed to confirm patient ID, procedure to be performed and site of procedure. IV sedation was accomplished with a combination of 2mg of Versed was administered by the RN after DO order, titrated to patient comfort during the course of the procedure while the patient remained responsive to all verbal commands In the prone position, following sterile prep and drape of the lumbar region, the L4/5 translaminar space was identified fluoroscopically. The skin was anesthetized via a 25-gauge, 1.5inch needle with 1% lidocaine solution. At this point, a 22-gauge short bevel spinal needle was atraumatically introduced and advanced under fluoroscopic guidance into the region of the L4/5 translaminar space. Depth was confirmed on lateral view. Radiological data, including multiple fluoroscopic views of the lumbar spine, reveal a spinal needle at the L4/5 translaminar space. Lateral views then show placement of the needle in the epidural space. Subsequent views show contrast material flowing superiorly and inferiorly in the epidural space. No vascular or intrathecal uptake is observed. At this point, using loss of resistance technique with saline and air, the epidural space was entered. This was confirmed following negative aspiration with injection of approximately 1.5cc of Isovue 200, showing excellent epidural flow without vascular or intrathecal uptake. At this point, 1cc of 1% lidocaine solution combined with 3cc or 20mg of dexamethasone and 6mg betamethasone was injected without incident. The patient tolerated the procedure well without signs or symptoms of complications prior to transfer to the recovery area continued monitoring without incident. The patient was then transferred to the recovery area where they were observed for an appropriate period of time after the injection. The patient reported a VAS score of 6 prior to the procedure and a post- procedure VAS of 0. POST OP INSTRUCTIONS The patient was provided a Pain Log to continue to record their response to the target-specific procedure prior to follow-up visit with their referring physician. Additionally, specific post-injection care instructions and a contact number to our office were provided if concerns arise regarding possible complications associated with the procedure are suspected.
== END 2021-06-27 14:21 | disposition home or self-care (01) ==
LOC: RAD 12:22
PROVIDERS: PCP Family Medicine; Referring Provider Physical Medicine & Rehabilitation; Visit Provider Physical Medicine & Rehabilitation
DX: M51.16 Intervertebral disc disorders with radiculopathy, lumbar region (principal); M48.061 Spinal stenosis, lumbar region without neurogenic claudication
CPT/HCPCS: 62323; 99152; J0702; J1100; J2250; J3010

== ENCOUNTER → 2021-10-03 13:32 | Outpatient (CLI) | payer OTHER, SELFPAY ==
[2021-02-20 14:26] VITALS: PULSE 57; RESP 20; O2SAT 92; BMI 28.0
--- NOTE | 2021-10-03 13:34 | DI.RAD.S_ITS ---
PROCEDURE: XR CERVICAL SPINE 4V OR 5V INDICATIONS: Right upper extremity paresthesias TECHNIQUE: 5 views of the cervical spine acquired. COMPARISON: None. FINDINGS: Bones: No fractures or dislocations to the C7-T1 level. Straightening of normal cervical lordosis is seen. Loss of disc height, degenerative endplate changes and bilateral facet hypertrophic changes are noted throughout cervical spine. Significant bilateral bony foraminal stenosis at C3-4 through C6-7 levels are seen on oblique views. Soft tissues: No prevertebral soft tissue swelling. IMPRESSION: Degenerative disc disease throughout cervical spine with bilateral bony foraminal stenosis at C3-4 through C6-7 levels. No fracture or dislocation. Dictated by: Ross Boogie M.D. on 10/03/2021 at 16:56 Approved by: Ross Boogie M.D. on 10/03/2021 at 16:56
--- NOTE | 2021-10-03 13:34 | DI.RAD.S_ITS ---
PROCEDURE: XR WRIST RT MIN 3V INDICATIONS: Right upper extremity paresthesias with wrist pain TECHNIQUE: 3 views of the wrist were acquired. COMPARISON: None. FINDINGS: Bones: No fractures or dislocations. No suspicious bony lesions. Soft tissues: No suspicious soft tissue calcifications. IMPRESSION: No evidence acute bony abnormality of the right wrist. If clinical suspicion and/or symptoms persist, further assessment with repeat plain films, or advanced imaging (e.g., CT, MRI, or bone scan) may be helpful for further assessment. Dictated by: Samir Moseley M.D. on 10/03/2021 at 19:57 Approved by: Samir Moseley M.D. on 10/03/2021 at 19:58
== END ==
PROVIDERS: PCP Family Medicine; Referring Provider Physical Medicine & Rehabilitation; Visit Provider Physical Medicine & Rehabilitation
DX: M50.11 Cervical disc disorder with radiculopathy, high cervical region (principal); M48.02 Spinal stenosis, cervical region; M19.031 Primary osteoarthritis, right wrist; R20.2 Paresthesia of skin
CPT/HCPCS: 72050; 73110

== ENCOUNTER → 2021-10-11 09:49 | Outpatient (CLI) | payer OTHER, SELFPAY ==
[2021-02-20 14:26] VITALS: PULSE 57; RESP 20; O2SAT 92; BMI 28.0
--- NOTE | 2021-10-11 09:51 | DI.ECHO.S_ITS ---
[facility] +---------+ : : [address] : : : : [id number] : : : : Phone: [phone]+ Echocardiogram Report + + :Name: DIETER HATCH Study Date: 10/11/2021 Height: 66 in : :[facility] ReadingLocation: Weight: 205 lb : : Gender: Male BSA: 2.0 m2 : :: 1950 Age: 71 yrs BP: 128/72 mmHg: :Reason For Study: Atrial fibrillation - paroxysmal : :Ordering Physician: INDER, : :ARSENIO Performed By: Aleksey Varma : :Referring: ARSENIO RESTREPO : + + Interpretation Summary 1) Normal left ventricular thickness, size, wall motion, and systolic function (EF 55-60%). 2) Normal right ventricular size and function. 3) The left atrium is moderately dilated. 4) There is mild aortic stenosis (valve area 1.7cm2, mean gradient 11mmHg). 5) No prior Echo available for comparison. Procedure: A two-dimensional transthoracic echocardiogram with color flow and Doppler was performed. The study quality was technically adequate. There is no prior echocardiogram noted for this patient. Left Ventricle: There is borderline asymmetric left ventricular hypertrophy. The left ventricle is normal in size. Left ventricular systolic function is normal. The ejection fraction is estimated to be 55-60%. There are no focal wall motion abnormalities. Diastolic parameters suggest a pseudonormalization pattern, consistent with probable elevated filling pressures. Right Ventricle: The right ventricle is normal in size and function. Atria: The left atrium is moderately dilated. Right atrial size is normal. The interatrial septum grossly appears intact with no obvious evidence for an atrial septal defect. Mitral Valve: There is mild mitral annular calcification. There is mild mitral regurgitation. Aortic Valve: The aortic valve is mildly calcified. There is mild aortic stenosis. The aortic valve mean gradient is 11 mmHg. No aortic regurgitation is present. Tricuspid Valve: The tricuspid valve is normal in structure and function. There is mild tricuspid regurgitation. The right ventricular systolic pressure is estimated to be at least 32 mmHg based on an estimated right atrial pressure of 3 mm Hg. Pulmonic Valve: The pulmonic valve is not well seen, but is grossly normal. There is no pulmonic valvular regurgitation. Great Vessels: The aortic root is normal size. The ascending aorta could not be visualized. The IVC is of normal diameter and collapses greater than 50% with a sniff. This suggests a low right atrial pressure of 3 mm Hg. Pericardium/ Pleura There is no pericardial effusion. There is no pleural effusion. MMode/2D Measurements & Calculations LVIDd: 5.3 cm LVOT diam: 2.2 cm LVIDs: 3.6 cm Ao root diam: 3.0 cm FS: 32.1 % IVSd: 1.2 cm LVPWd: 1.0 cm LV valenzuela. diameter/BSA (cm/m^2): 2.6 LV sys. diameter/BSA (cm/m^2): 1.8 LA dimension: 3.7 cm RA long axis: 5.6 cm LA A2 area: 21.5 cm2 LA A4 area: 24.9 cm2 LA length (vol): 5.4 cm LA vol: 84.3 ml LA vol index: 41.7 ml/m2 TAPSE_phl: 1.9 cm Doppler Measurements & Calculations Ao V2 max: 230.0 cm/sec LVOT Max Masood: 92.0 cm/sec Ao V2 mean: 154.0 cm/sec LV V1 max P.4 mmHg Ao max P.0 mmHg LV V1 VTI: 22.7 cm Ao mean P.0 mmHg JULIANNA(I,D): 1.7 cm2 Ao V2 VTI: 47.1 cm JULIANNA(V,D): 1.5 cm2 sev ratio: 0.48 JULIANNA indexed to BSA (cm^2/m^2): 0.87 MV E max masood: 108.0 cm/sec TR max masood: 268.0 cm/sec MV A max masood: 113.0 cm/sec TR max P.7 mmHg MV E/A: 0.96 Med Peak E' Masood: 5.6 cm/sec E/E' med: 19.3 Lat Peak E' Masood: 6.7 cm/sec E/E' lat: 16.2 E/e' average: 17.7 MV dec time: 0.27 sec SV(LVOT): 82.4 ml AV VR_phl: 0.40 JULIANNA(VTI)/BSA_phl: 0.91 MV P1/2t-pr_phl: 80.0 msec Reading Physician:12:41 PM
== END ==
PROVIDERS: Referring Provider Internal Medicine Cardiovascular Disease; Visit Provider Internal Medicine Cardiovascular Disease
DX: I08.3 Combined rheumatic disorders of mitral, aortic and tricuspid valves (principal); I48.0 Paroxysmal atrial fibrillation; R42 Dizziness and giddiness
CPT/HCPCS: 93306

== ENCOUNTER → 2021-10-30 10:44 | Outpatient (CLI) | payer OTHER, SELFPAY ==
[2021-02-20 14:26] VITALS: PULSE 57; RESP 20; O2SAT 92; BMI 28.0
--- NOTE | 2021-10-30 10:45 | DI.MRI.S_ITS ---
PROCEDURE: MR CERVICAL SPINE WO CON INDICATIONS: C6-7 translaminar AMOR TECHNIQUE: Noncontrast sagittal T1 spin echo and T2 fast spin echo, sagittal STIR, foraminal oblique sagittal T2 fast spin echo, and axial gradient echo or T2 fast spin echo through the cervical spine. COMPARISON: None. FINDINGS: Image quality: Excellent. Alignment and Curvature: Extensive cervical a goal spondylitic change. Trace anterolisthesis of C2 on C3. Trace retrolisthesis of C5 on C6. Bone Marrow: Marrow demonstrates normal overall signal. Spinal Cord: Visualized spinal cord has normal size and signal. No cerebellar tonsillar herniation. Paraspinous Soft Tissues: No paravertebral masses. Prevertebral soft tissues are normal in thickness. C2-C3: Diffuse disc bulge with focal superimposed right paracentral disc protrusion. Prominent ligamentous hypertrophy. Short pedicles. Severe canal stenosis. Prominent facet hypertrophy. Moderate to severe right foraminal narrowing with flattening deformity on the exiting right C3 nerve root. Moderate left foraminal narrowing. C3-C4: Severe chronic disc height loss. At least moderate diffuse disc bulge. Flattening of the ventral cord. Prominent right uncovertebral joint hypertrophy. Moderate central canal stenosis. Severe right lateral recess stenosis. Prominent facet hypertrophy, right greater than left. Severe right foraminal narrowing with right foraminal C4 nerve root impingement. Moderate to severe left foraminal narrowing with flattening deformity on the exiting left C4 nerve root. C4-C5: Severe chronic disc height loss. Moderately large diffuse disc bulge. Ligamentous hypertrophy. Short pedicles. Severe canal stenosis. Prominent bilateral facet hypertrophy. Severe bilateral foraminal narrowing with bilateral foraminal C5 nerve root impingement. C5-C6: Diffuse disc bulge and prominent bilateral uncovertebral joint osteophytes. Short pedicles. Ligamentous hypertrophy. High-grade canal stenosis. Bilateral facet hypertrophy. Uncovertebral joint hypertrophy. Marked bilateral foraminal narrowing with bilateral foraminal C6 nerve root impingement. C6-C7: Diffuse disc bulge. At least moderate canal stenosis. Bilateral foraminal disc bulges. Severe bilateral foraminal narrowing with bilateral foraminal C7 nerve root impingement. C7-T1: Disc bulge. No canal stenosis. Ymit-[id number]-[id number] right foraminal narrowing. IMPRESSION: 1. Advanced cervical spondylitic change. 2. Significant multilevel canal stenosis, severe at C2-C3, moderate at C3-C4 ( with severe right lateral recess stenosis), severe at C4-C5, high-grade at C5-C6, and moderate at C6-C7. 3. Significant multilevel foraminal narrowing with multilevel foraminal nerve root impingement as described above. Dictated by: Samir Moseley M.D. on 10/30/2021 at 12:08 Approved by: Samir Moseley M.D. on 10/30/2021 at 12:24
== END ==
PROVIDERS: Referring Provider Physical Medicine & Rehabilitation; Visit Provider Physical Medicine & Rehabilitation
DX: M47.22 Other spondylosis with radiculopathy, cervical region (principal); M48.02 Spinal stenosis, cervical region
CPT/HCPCS: 72141

== ENCOUNTER → 2021-11-11 13:46 | Outpatient (CLI) | payer OTHER, SELFPAY ==
[2021-02-20 14:26] VITALS: PULSE 57; RESP 20; O2SAT 92; BMI 28.0
[2021-11-11 14:43] LABS: COVID19 -Nasal RAPID Negative (Negative)
== END ==
PROVIDERS: Visit Provider Physical Medicine & Rehabilitation
DX: Z20.822 Contact with and (suspected) exposure to COVID-19 (principal)
CPT/HCPCS: 87635; C9803

== ENCOUNTER 2021-11-12 08:02 | Outpatient (CLI) | payer OTHER, SELFPAY ==
[2021-02-20 14:26] VITALS: PULSE 57; RESP 20; O2SAT 92; BMI 28.0
[2021-11-12] VITALS (8 sets, daily range): BP systolic 141–164; BP diastolic 76–88; PULSE 61–69; RESP 14–23; TEMP 36.7; O2SAT 95–97
--- NOTE | 2021-11-12 08:04 | DI.RAD.S_ITS ---
PROCEDURE: PAIN C/T INTERLAMINAR INJECT INDICATIONS: SPINAL STENOSIS COMPARISON: None. FINDINGS: Fluoroscopic spot filming was performed to verify placement of spinal needles at the C6-7 level(s), as labeled on the films. Appropriate location(s) of the needle tip(s) was confirmed by injection of iodinated contrast. IMPRESSION: Fluoro guidance was provided intraoperatively for C6-7 translaminar epidural steroid injection performed by the ordering physician. Dictated by: Ross Boogie M.D. on 11/12/2021 at 13:30 Approved by: Ross Boogie M.D. on 11/12/2021 at 13:30
[2021-11-12] MEDS: MIDAZOLAM 2 MG/2 ML VIAL IV (09:51)
[2021-11-12] MEDS: IOPAMIDOL 15 ML VIAL 3 ML INJ (09:55)
[2021-11-12] MEDS: BUPIVACAINE 0.25% (PF) VIAL 2 ML INJ (09:55)
[2021-11-12] MEDS: DEXAMETHASONE 10 MG/ML VIAL 20 MG INJ (09:55)
--- NOTE | 2021-11-12 10:07 | P.PCN_ITS ---
Date/Time/Diagnoses Date of procedure: 11/12/21 Time of procedure: 10:07 Pre-procedure diagnosis: 1. CERVICAL STENOSIS, 2. CERVICAL HNP WITH UPPER EXTREMITY RADICULAR FEATURES Post-procedure diagnosis: same Procedure Notes Procedure: 1. FLUORSCOPICALLY GUIDED CONTRAST CONTROLLED INTERLAMINAR EPIDURAL STEROID INJECTION - C6/7 TL AMOR Indications: Julián is referred for treatment of Cervical HNP with Upper Extremity Paresthesias. Physician: Rajesh Velazquez Total Fluoroscopy time (seconds): 31 Total sedation minutes: 13 Complications: none Procedure in detail & Post-procedure care: FINDINGS Cervical Stenosis due to disc deterioration and nerve root irritation and nerve root irritation DESCRIPTION OF PROCEDURE Fluoroscopically guided, contrast-controlled C6/7 translaminar epidural steroid injection with conscious sedation. Following review of allergy and review of potential side effects and complications, including, but not necessarily limited to, infection, allergic re action, local tissue breakdown, temporary as well as permanent nerve injury, stroke, paralysis, and possible , the patient indicated that patient understood and agreed to proceed. An informed consent document was signed by the patient, witnessed by a nurse, and placed in the patient's chart. Additionally, other treatment options including modalities, medications, and physical therapy were reviewed with the patient. After review of previous anaesthesic history and IV conscious sedation the patient was deemed safe to proceed with today?s procedure with IV conscious sedation as ASA class II designation. Safety time-out was performed to confirm patient ID, procedure to be performed and site of procedure. IV sedation was accomplished with a combination of 2mg of Versed administered by the RN after DO order, titrated to patient comfort during the course of the procedure while the patient remained responsive to all verbal commands. In the prone position, following sterile prep and drape of the cervical region, the C6/7 translaminar space was identified fluoroscopically. The skin was anesthetized via a 25-gauge 1.5-inch needle with 1% lidocaine solution. At this point, a 25-gauge, 2.5-inch short bevel spinal needle was atraumatically introduced and advanced under fluoroscopic guidance into epidural space at the C6/7 translaminar space. Depth was confirmed on lateral view. Radiological data, including multiple fluoroscopic views of the cervical spine, reveal a spinal needle at the C6/7 translaminar space. Lateral views then show placement of the needle in the epidural space. Subsequent views show contrast material flowing superiorly and inferiorly in the epidural space. DSA fluoroscopy with live contrast injection, once again, confirmed no vascular or intrathecal uptake. At this point, using loss of resistance technique with saline and air, the epidural space was entered. Following negative aspiration, injection of approximately 1.5 cc of Isovue-200 with live fluoroscopy in the AP view confirmed epidural flow in the epidural space without vascular or intrathecal uptake observed. Subsequently, a test dose of 1 cc of 1% lidocaine solution was injected and patient was observed for two minutes without signs or symptoms of complications, including abdominal pain, shortness of breath, bilateral upper or lower extremity weakness, nausea and vomiting, prior to steroid injection. At this point, 3cc or 30mg of dexamethasone was then injected without incident. The patient tolerated the procedure well without signs or symptoms of complications prior to being transferred to the recovery area for further monitoring, The patient was then transferred to the recovery area where they were observed for an appropriate period of time after the injection. The patient reported a VAS score of 6 prior to the procedure and a post-procedure VAS of 0. POST OP INSTRUCTIONS The patient was provided a Pain Log to continue to record their response to the target-specific procedure prior to follow-up visit with the referring provider. Additionally, specific post-injection care instructions and a contact number to our office were provided if concerns arise regarding possible complications associated with the procedure are suspected.
== END 2021-11-12 10:30 | disposition home or self-care (01) ==
LOC: RAD 08:04
PROVIDERS: Referring Provider Physical Medicine & Rehabilitation; Visit Provider Physical Medicine & Rehabilitation
DX: M48.02 Spinal stenosis, cervical region (principal); M50.123 Cervical disc disorder at C6-C7 level with radiculopathy
CPT/HCPCS: 62321; 99152; J1100; J2250

== ENCOUNTER → 2021-12-30 12:33 | Outpatient (CLI) | payer OTHER, SELFPAY ==
[2021-02-20 14:26] VITALS: PULSE 57; RESP 20; O2SAT 92; BMI 28.0
[2021-12-30 14:17] LABS: Alanine Aminotransferase 64 IU/L (<50); Albumin 4.2 g/dL (3.5-5.0); Albumin Globulin Ratio 1.4 (1.0-2.8); Alkaline Phosphatase 89 U/L (38-126); Aspartate Aminotransferase 45 IU/L (17-59); BUN Creatinine Ratio 8.8 (6-22); Bilirubin Total 0.5 mg/dL (0.2-1.3); Blood Urea Nitrogen 10 mg/dL (9-20); Calcium 8.9 mg/dL (8.4-10.2); Carbon Dioxide 23 mmol/L (22-32); Chloride 106 mmol/L (98-107); Cholesterol 197 mg/dL (140-199); Estimated Glomerular Filt Rate > 60 mL/min (>60); Globulin 2.9 g/dL (1.7-4.1); Glucose 96 mg/dL (80-110); HDL Cholesterol 31 mg/dL (40-60); HEMOLYSIS 27 (0-50); LDL Cholesterol Calculated 130 mg/dL (<100); Potassium 3.8 mmol/L (3.4-5.1); Sodium 140 mmol/L (137-145); Total Protein 7.1 g/dL (6.3-8.2); Triglycerides 178 mg/dL (35-150)
== END ==
PROVIDERS: Referring Provider Internal Medicine Cardiovascular Disease; Visit Provider Internal Medicine Cardiovascular Disease
DX: E78.5 Hyperlipidemia, unspecified (principal); I10 Essential (primary) hypertension
CPT/HCPCS: 36415; 80053; 80061

== ENCOUNTER → 2022-02-21 10:44 | Outpatient (CLI) | payer OTHER, SELFPAY ==
[2021-02-20 14:26] VITALS: PULSE 57; RESP 20; O2SAT 92; BMI 28.0
--- NOTE | 2022-02-21 | DI.MRI.S_ITS ---
PROCEDURE: MR HEAD/BRAIN WO CON INDICATIONS: Tremor, unspecified TECHNIQUE: Noncontrast axial T1 spin echo, axial T2 fast spin echo, sagittal and axial FLAIR, coronal T2 fast spin echo, axial gradient echo, axial diffusion and ADC through the brain. COMPARISON: None. FINDINGS: Image quality: Excellent. CSF Spaces: Basal cisterns are patent. No extra-axial fluid collections. Ventricles are normal in size and shape. Brain: No intracranial masses or hemorrhage. Christiansen/white matter interface is normal. Brainstem appears normal. Diffusion-weighted images within normal limits without evidence of acute infarct. Normal intravascular flow voids are present. Mild atrophy and white matter chronic ischemic change present Skull and face: Calvarium has normal marrow signal. Orbits appear normal. Sinuses: Sinuses and mastoids are clear. IMPRESSION: Mild atrophy and white matter chronic ischemic change without acute infarct, hemorrhage or mass lesion. Approved by: Willy Liao M.D. on 02/21/2022 at 12:46
== END ==
PROVIDERS: PCP Nurse Practitioner; Referring Provider Psychiatry & Neurology Neurology; Visit Provider Psychiatry & Neurology Neurology
DX: R25.1 Tremor, unspecified (principal)
CPT/HCPCS: 70551

== ENCOUNTER → 2023-05-18 12:07 | Outpatient (CLI) | payer OTHER, SELFPAY ==
[2021-02-20 14:26] VITALS: PULSE 57; RESP 20; O2SAT 92; BMI 28.0
[2023-05-18 13:48] LABS: Add Manual Diff / Slide Review NO; Basophils Absolute Auto 100 /uL (0-100); Basophils Percent Auto 1.4 % (0-2); Eosinophils Absolute Auto 500 /uL (0-450); Eosinophils Percent Auto 5.3 % (2-4); Hematocrit 44.5 % (41-53); Hemoglobin 15.4 g/dL (13.5-17.5); Lymphocytes Absolute Auto 2700 /uL (1100-4500); Lymphocytes Percent Auto 26.4 % (25-40); Mean Corpuscular HGB Conc 34.6 % (30-36); Mean Corpuscular Hemoglobin 29.6 PG (26-34); Mean Corpuscular Volume 85.5 fL (80-100); Monocytes Absolute Auto 900 /uL (0-900); Monocytes Percent Auto 8.9 % (3-14); Neutrophils Absolute Auto 5900 /uL (1500-7000); Platelet Count 216 X10^3/uL (150-400); Red Cell Distribution Width 14.1 % (11.6-14.8); White Blood Cell Count 10.2 X10^3/uL (4.5-11.0)
[2023-05-18 14:30] LABS: BUN Creatinine Ratio 10.3 (6-22); Blood Urea Nitrogen 11 mg/dL (9-20); Calcium 9.2 mg/dL (8.4-10.2); Carbon Dioxide 23 mmol/L (22-32); Chloride 105 mmol/L (98-107); Cholesterol 194 mg/dL (140-199); Estimated Glomerular Filt Rate > 60 mL/min (>60); Glucose 100 mg/dL (80-110); HDL Cholesterol 35 mg/dL (40-60); HEMOLYSIS 45 (0-50); LDL Cholesterol Calculated 125 mg/dL (<100); Sodium 139 mmol/L (137-145); Triglycerides 168 mg/dL (35-150)
== END ==
PROVIDERS: PCP Nurse Practitioner; Referring Provider Internal Medicine Cardiovascular Disease; Visit Provider Internal Medicine Cardiovascular Disease
DX: E78.5 Hyperlipidemia, unspecified (principal); I10 Essential (primary) hypertension
CPT/HCPCS: 36415; 80048; 80061; 85025

== ENCOUNTER 2023-07-07 14:30 | Emergency (ER) | payer MEDICARE, SELFPAY ==
[2021-02-20 14:26] VITALS: PULSE 57; RESP 20; O2SAT 92; BMI 28.0
[2023-07-07 14:32] VITALS: BP 164/87; PULSE 60; RESP 14; TEMP 36.7; O2SAT 99; BMI 31.4
--- NOTE | 2023-07-07 14:41 | DI.RAD.S_ITS ---
PROCEDURE: XR CHEST 1V INDICATIONS: chest pain TECHNIQUE: One view of the chest was acquired. COMPARISON: [facility], CR, XR CHEST 1V, 11/21/2020, 4:59. FINDINGS: Surgical changes and devices: None. Lungs and pleura: Lungs are clear. No pleural effusions or pneumothorax. Mediastinum: Mediastinal contours appear normal. Heart size is normal. Bones and chest wall: No suspicious bony lesions. Overlying soft tissues appear unremarkable. IMPRESSION: No acute cardiopulmonary abnormality is seen. Dictated by: Unique Hernandez MD, PhD on 07/07/2023 at 15:16 Approved by: Unique Hernandez MD, PhD on 07/07/2023 at 15:16
[2023-07-07 15:06] LABS: Add Manual Diff / Slide Review NO; Basophils Absolute Auto 200 /uL (0-100); Basophils Percent Auto 1.4 % (0-2); Eosinophils Absolute Auto 300 /uL (0-450); Eosinophils Percent Auto 2.3 % (2-4); Hematocrit 42.9 % (41-53); Hemoglobin 14.5 g/dL (13.5-17.5); Lymphocytes Absolute Auto 2800 /uL (1100-4500); Lymphocytes Percent Auto 24.3 % (25-40); Mean Corpuscular HGB Conc 33.9 % (30-36); Mean Corpuscular Hemoglobin 29.2 PG (26-34); Mean Corpuscular Volume 86.2 fL (80-100); Monocytes Absolute Auto 1100 /uL (0-900); Monocytes Percent Auto 9.2 % (3-14); Neutrophils Absolute Auto 7200 /uL (1500-7000); Neutrophils Percent Auto 62.8 % (50-75); Platelet Count 231 X10^3/uL (150-400); Red Blood Cell Count 4.98 X10^6/uL (4.5-5.9); Red Cell Distribution Width 13.7 % (11.6-14.8); White Blood Cell Count 11.4 X10^3/uL (4.5-11.0)
[2023-07-07 15:13] LABS: Prothrombin Time 11.2 SECONDS (9.4-12.5)
[2023-07-07 15:16] LABS: PTT Partial Thromboplastin Tim 39 SECONDS (25.1-36.5)
[2023-07-07 15:19] LABS: Alanine Aminotransferase 29 IU/L (<50); Albumin 4.3 g/dL (3.5-5.0); Albumin Globulin Ratio 1.5 (1.0-2.8); Alkaline Phosphatase 107 U/L (38-126); Aspartate Aminotransferase 34 IU/L (17-59); BUN Creatinine Ratio 14.4 (6-22); Bilirubin Total 0.3 mg/dL (0.2-1.3); Blood Urea Nitrogen 16 mg/dL (9-20); Calcium 9.1 mg/dL (8.4-10.2); Carbon Dioxide 25 mmol/L (22-32); Chloride 108 mmol/L (98-107); Creatine Kinase 598 U/L (55-170); Estimated Glomerular Filt Rate > 60 mL/min (>60); Globulin 2.8 g/dL (1.7-4.1); Glucose 109 mg/dL (80-110); HEMOLYSIS < 15 (0-50); Lipase 283 U/L (23-300); Magnesium 2.5 mg/dL (1.6-2.3); Potassium 3.6 mmol/L (3.4-5.1); Sodium 140 mmol/L (137-145); Total Protein 7.1 g/dL (6.3-8.2)
[2023-07-07 15:30] LABS: Troponin I < 0.012 ng/mL (0.01-0.034)
--- NOTE | 2023-07-07 18:09 | ED.GENADULT ---
HPI - General Adult General Chief complaint: Hypertension Stated complaint: Hypertension Time Seen by Provider: 07/07/23 17:49 Source: patient Mode of arrival: Ambulatory History of Present Illness HPI narrative: 73yoM with PMH HTN, tobacco abuse, tremors on primidone presents for elevated blood pressure readings at home and 3-4 days of lightheadedness and blurred vision. Reports being taken off of lisinopril lately and wonders if this could be contributing to his symptoms. Denies chest pain, dyspnea, worst headache of life. Patient states his blood pressures are usually 160s systolic. When he took his blood pressure earlier this evening it was greater than 200 systolic, which is what prompted his presentation to the emergency department. Related Data Home Medications Medication Instructions Recorded Confirmed gabapentin 300 mg capsule 300 mg PO BID 11/13/20 02/05/22 amitriptyline 25 mg tablet 25 mg PO BEDTIME 02/20/21 02/05/22 amlodipine 10 mg tablet 10 mg PO DAILY 09/25/21 02/05/22 losartan 50 mg tablet 50 mg PO DAILY 09/25/21 02/05/22 triamcinolone acetonide 0.5 % g topical 09/25/21 02/05/22 topical ointment albuterol sulfate 90 mcg/actuation 1 puff inhalation ONCE 02/05/22 02/05/22 aerosol inhaler paroxetine HCl 10 mg tablet 10 mg PO DAILY 02/05/22 02/05/22 primidone 50 mg tablet 50 mg PO BEDTIME 02/05/22 02/05/22 rosuvastatin 5 mg tablet 5 mg PO DAILY 02/05/22 02/05/22 spironolactone 25 mg tablet 25 mg PO DAILY 07/07/23 07/07/23 valsartan 320 1 tab PO DAILY 07/07/23 07/07/23 mg-hydrochlorothiazide 25 mg tablet Previous Rx's Medication Instructions Recorded metoprolol tartrate 50 mg tablet 50 mg PO BID #60 tabs 11/24/20 tramadol 50 mg tablet 50 mg PO BID PRN pain #30 tabs 07/02/22 celecoxib 200 mg capsule (Celebrex) 200 mg PO DAILY #30 caps 04/24/23 hydralazine 10 mg tablet 10 mg PO BID PRN hypertension #20 07/07/23 tabs Allergies Allergy/AdvReac Type Severity Reaction Status Date / Time Penicillins Allergy Unknown Verified 07/07/23 14:39 Review of Systems Review of Systems Narrative: Negative except as noted above Patient History Medical History Degenerative joint disease of wrist Cervical radiculopathy Facet arthropathy, lumbar Lumbar radiculopathy Scoliosis History of pineal cyst Alcohol use disorder, moderate, in early remission Tobacco abuse, in remission Hypertension Surgical History History of extraction of renal calculus Family History Mother Hypertension CKD (chronic kidney disease) Father Cancer Social History household members: none Smoking Status: Current every day smoker Smoking Status: Current every day smoker tobacco type: cigarettes alcohol intake frequency: other Substance Use Type: does not use Exam Initial Vital Signs Initial Vital Signs: Vital Signs Temperature 98.1 F 07/07/23 14:32 Pulse Rate 60 07/07/23 14:32 Respiratory Rate 14 07/07/23 14:32 Blood Pressure 164/87 H 07/07/23 14:32 Pulse Oximetry 99 07/07/23 14:32 Oxygen Delivery Method Room Air 07/07/23 14:32 Const: Awake, alert, frail, appears chronically unwell Cardiac: regular rate, regular rhythm RESP: unlabored, clear bilaterally, no wheezing GI: Soft, nontender, nondistended, no rebound, no guarding MSK: Atraumatic, full range of motion, pulses equal Skin: Warm, Dry, intact, no rashes Neuro: AO x3, CN II-XII grossly intact, moves all extremities, tremor in upper extremities Course Orders Ordered: Discontinued Medications Metoprolol Tartrate (Metoprolol Ir 25 Mg Tablet) 50 mg PO NOW ONE Stop: 07/07/23 18:42 Last Admin: 07/07/23 18:46 Dose: 50 mg Documented By: ILAENA Vital Signs Vital signs: Vital Signs - 8 hr 07/07/23 14:32 07/07/23 18:39 Temperature 98.1 F Pulse Rate 60 54 L Respiratory Rate 14 12 Blood Pressure 164/87 H 178/83 H Pulse Oximetry 99 99 Oxygen Delivery Method Room Air Room Air Medical Decision Making Lab Data 07/07/23 14:56 07/07/23 14:56 Labs: Lab Results 07/07/23 Range/Units 14:56 WBC 11.4 H (4.5-11.0) X10^3/uL RBC 4.98 (4.5-5.9) X10^6/uL Hgb 14.5 (13.5-17.5) g/dL Hct 42.9 (41-53) % MCV 86.2 (80-100) fL MCH 29.2 (26-34) PG MCHC 33.9 (30-36) % RDW 13.7 (11.6-14.8) % Plt Count 231 (150-400) X10^3/uL Neut % (Auto) 62.8 (50-75) % Lymph % (Auto) 24.3 L (25-40) % [place] % (Auto) 9.2 (3-14) % Eos % (Auto) 2.3 (2-4) % Baso % (Auto) 1.4 (0-2) % Neut # (Auto) 7200 H (8405-9223) /uL Lymph # (Auto) 2800 (1436-0227) /uL [place] # (Auto) 1100 H (0-900) /uL Eos # (Auto) 300 (0-450) /uL Baso # (Auto) 200 H (0-100) /uL PT 11.2 (9.4-12.5) SECONDS INR 1.0 (0.9-1.3) APTT 39 H (25.1-36.5) SECONDS Sodium 140 (137-145) mmol/L Potassium 3.6 (3.4-5.1) mmol/L Chloride 108 H (98-107) mmol/L Carbon Dioxide 25 (22-32) mmol/L BUN 16 (9-20) mg/dL Creatinine 1.11 (0.66-1.25) mg/dL Estimated GFR > 60 (>60) mL/min BUN/Creatinine Ratio 14.4 (6-22) Glucose 109 (80-110) mg/dL Calcium 9.1 (8.4-10.2) mg/dL Magnesium 2.5 H (1.6-2.3) mg/dL Total Bilirubin 0.3 (0.2-1.3) mg/dL AST 34 (17-59) IU/L ALT 29 (<50) IU/L Alkaline Phosphatase 107 (38-126) U/L Total Creatine Kinase 598 H (55-170) U/L Troponin I < 0.012 (0.01-0.034) ng/mL Total Protein 7.1 (6.3-8.2) g/dL Albumin 4.3 (3.5-5.0) g/dL Globulin 2.8 (1.7-4.1) g/dL Albumin/Globulin Ratio 1.5 (1.0-2.8) Lipase 283 (23-300) U/L Imaging Data Chest x-ray: Radiologist's Impression: PROCEDURE: XR CHEST 1V INDICATIONS: chest pain TECHNIQUE: One view of the chest was acquired. COMPARISON: [facility], XR CHEST 1V, 11/21/2020, 4:59. FINDINGS: Surgical changes and devices: None. Lungs and pleura: Lungs are clear. No pleural effusions or pneumothorax. Mediastinum: Mediastinal contours appear normal. Heart size is normal. Bones and chest wall: No suspicious bony lesions. Overlying soft tissues appear unremarkable. IMPRESSION: No acute cardiopulmonary abnormality is seen. Dictated by: Unique Hernandez MD, PhD on 07/07/2023 at 15:16 Approved by: Unique Hernandez MD, PhD on 07/07/2023 at 15:16 CT scan - head: Radiologist's Impression: PROCEDURE: CT HEAD/BRAIN WO CON INDICATIONS: HTN/BLURRED VISION TECHNIQUE: Noncontrast 4.5 mm thick angled axial sections acquired from the foramen magnum to the vertex, with coronal and sagittal reformats. For radiation dose reduction, the following was used: automated exposure control, adjustment of mA and/or kV according to patient size. COMPARISON: [facility], XR CHEST 1V, 07/07/2023, 14:44. FINDINGS: Image quality: Diagnostic. CSF spaces: Basal cisterns are patent. No extra-axial fluid collections. The ventricles are symmetric in size and shape. Brain: No intracranial bleeds or masses. There is cerebral volume loss for age, with resultant ventricular and sulcal prominence. There are periventricular and deep white matter chronic small vessel ischemic changes. There is intracranial internal carotid artery atherosclerosis. Skull and face: Calvarium and visualized facial bones appear intact, without suspicious lesions. Sinuses: Visualized sinuses and mastoids are clear. IMPRESSION: No acute intracranial hemorrhage is seen. No acute intracranial pathology. Dictated by: Jem Palmer M.D. on 07/07/2023 at 17:30 Approved by: Jem Palmer M.D. on 07/07/2023 at 17:31 MDM Narrative Medical decision making narrative: Elevated blood pressure readings at home with lightheadedness and blurred vision. Triage note states it happened today, patient states it has been at least 3-4 days of lightheadedness and blurred vision, however the elevated blood pressure readings were today. He reports concerned that he was taken off of lisinopril, review of patient's medicines shows that he is on amlodipine, metoprolol, and valartan-hydrochlorothiazide. Laboratory work and imaging is reviewed, no significant abnormalities identified. There are no signs of end-organ damage on lab work or on physical exam. Patient has negative brain CT and he was ambulatory throughout the hallways without difficulty. Patient counseled on the importance of tobacco cessation in improving his blood pressures. I recommended close PCP follow up for BP med adjustment, but in the meantime we will add hydralazine to medication regimen. Patient is on maximum dose of his valsartan-hydrochlorothiazide, and his pulse is 50-60 here in the ED, so I do not want to increase his metoprolol any further. Discharge Plan Departure Patient Disposition: Home Clinical Impression: Hypertension, Continuous tobacco abuse Instructions: DI for High Blood Pressure Activity Restrictions/Additional Instructions: Your laboratory work and CT imaging today were normal. Your on maximum doses of your current blood pressure medications, and so an as-needed medication for blood pressure has been added. Do not use this if your heart rate is below 60 beats per minute. If you stop using tobacco this will likely help your blood pressure improve. Follow up with your primary care physician. Prescriptions: New hydralazine 10 mg tablet 10 mg PO BID PRN (Reason: hypertension) Qty: 20 0RF No Action tramadol 50 mg tablet 50 mg PO BID PRN (Reason: pain) Qty: 30 1RF celecoxib [Celebrex] 200 mg capsule 200 mg PO DAILY Qty: 30 2RF spironolactone 25 mg tablet 25 mg PO DAILY valsartan-hydrochlorothiazide 320-25 mg tablet 1 tab PO DAILY gabapentin 300 mg capsule 300 mg PO BID metoprolol tartrate 50 mg tablet 50 mg PO BID Qty: 60 0RF amitriptyline 25 mg tablet 25 mg PO BEDTIME rosuvastatin 5 mg tablet 5 mg PO DAILY albuterol sulfate 90 mcg/actuation HFA aerosol inhaler 1 puff inhalation ONCE paroxetine HCl 10 mg tablet 10 mg PO DAILY primidone 50 mg tablet 50 mg PO BEDTIME amlodipine 10 mg tablet 10 mg PO DAILY losartan 50 mg tablet 50 mg PO DAILY triamcinolone acetonide 0.5 % ointment topical Referrals: Charla Rodrigez ARNP [Primary Care Provider] - Stand Alone Forms: Patient Portal/API
[2023-07-07 18:39] VITALS: BP 178/83; PULSE 54; RESP 12; O2SAT 99
[2023-07-07] MEDS: METOPROLOL IR 25 MG TABLET 50 MG PO (18:46)
== END 2023-07-07 18:54 | disposition home or self-care (01) ==
PROVIDERS: Emergency Medicine; Emergency Provider Emergency Medicine; PCP Nurse Practitioner
DX: I10 Essential (primary) hypertension (principal); F17.210 Nicotine dependence, cigarettes, uncomplicated
CPT/HCPCS: 36415; 70450; 71045; 80053; 82550; 83690; 83735; 84484; 85025; 85610; 85730; 93005; 99284